=== PATIENT | female | born 1960 ===

== ENCOUNTER 2016-08-06 13:45 | Observation (INO) | payer MEDICARE, MEDICAID ==
[2016-08-06 13:45] VITALS: BMI 47.1
[2016-08-06 14:27] LABS: BASO % 0.1 % (0.0-2.0); EOS # 0.1 K/uL (0.0-0.7); EOS % 0.5 % (0.0-4.0); HEMATOCRIT 35.1 % (34.0-47.0); LYMPH # 0.8 K/uL (1.0-4.3); LYMPH % 8.4 % (20.0-40.0); MEAN CELL VOLUME 91.9 fL (81.0-99.0); MEAN CORPUSCULAR HGB CONC 33.7 g/dL (33.0-37.0); MEAN PLATELET VOLUME 9.1 fL (7.2-11.7); MONO # 0.5 K/uL (0.0-0.8); MONO % 5.5 % (0.0-10.0); PLATELET COUNT 169 K/uL (130-400); WHITE BLOOD COUNT 9.5 K/uL (4.8-10.8)
--- NOTE | 2016-08-06 14:27 | C.PDOC ---
History Of Present Illness The patient is a 56 yr old female with PMHx of anxiety, diabetes, obesity, HTN, CHF, End Stage Renal and Raynaud's disease, presents to the ER for evaluation of anxiety, chest pain and feeling SOB for the past few days. Patient states she went to dialysis yesterday and afterwards felt SOB. The chest pain is midline and has been off and on for 2 days. Patient denies fever, chills, nausea, vomiting, abdominal pain, headache, weakness or numbness. Time Seen by Provider: 08/06/16 13:55 Chief Complaint (Nursing): Chest Pain History Per: Patient History/Exam Limitations: no limitations Onset/Duration Of Symptoms: Days (Few) Current Symptoms Are (Timing): Still Present Past Medical History Reviewed: Historical Data, Nursing Documentation, Vital Signs Vital Signs: Last Vital Signs Temp 97.5 F L 08/07/16 16:00 Pulse 73 08/07/16 16:00 Resp 20 08/07/16 16:00 BP 158/75 H 08/07/16 18:12 Pulse Ox 92 L 08/07/16 16:00 - Medical History PMH: Anxiety, Arthritis, Asthma, Atrial Fibrillation, Back Problems (chronic back pain), CAD (CABG), CHF, COPD, Depression, Diabetes, Deep Vein Thrombosis, HTN, Hypercholesterolemia, Kidney Stones, End Stage Renal Disease, Chronic Kidney Disease, Rheumatoid Arthritis, Schizophrenia Other PMH: Obesity Surgical History: CABG (X4), Cholecystectomy, Coronary Stent - [facility] Procedures D & C NEC (06/07/13) DILATION OF LEFT URETER WITH INTRALUMINAL DEVICE, ENDO (05/12/15) EXCISION OF ASCENDING COLON, ENDO, DIAGN (04/23/16) HEMODIALYSIS (10/10/14) INSPECTION OF LOWER INTESTINAL TRACT, ENDO (04/23/16) LAPAROSCOP REMOVE OVARIES/TUBES (06/26/13) LAPAROSCOPIC RADICAL ABDOMINAL HYSTERECTOMY (06/26/13) LAPAROSCOPIC ROBOTIC ASSISTED PROCEDURE (06/26/13) LYMPHATIC STRUCT BIOPSY (06/26/13) OTHER ENDOSCOPY OF SM INTEST (07/27/14) PACKED CELL TRANSFUSION (06/07/13) PERFORMANCE OF URINARY FILTRATION, MULTIPLE (12/24/15) TRANSFUSE NONAUT FROZEN PLASMA IN PERIPH VEIN, PERC (04/23/16) TRANSFUSE NONAUT WHOLE BLOOD IN PERIPH VEIN, PERC (04/23/16) VENOUS CATHETERIZATION NEC (06/07/13) Family History: States: Diabetes - Social History Hx Tobacco Use: Yes Hx Alcohol Use: No Hx Substance Use: No - Immunization History Hx Tetanus Toxoid Vaccination: No Hx Influenza Vaccination: No Hx Pneumococcal Vaccination: No Review Of Systems Except As Marked, All Systems Reviewed And Found Negative. Constitutional: Negative for: Fever, Chills Cardiovascular: Positive for: Chest Pain Respiratory: Positive for: Shortness of Breath Gastrointestinal: Negative for: Nausea, Vomiting, Abdominal Pain Neurological: Negative for: Weakness, Numbness, Headache Physical Exam - Physical Exam Appears: Well, Non-toxic, No Acute Distress, Other (Obese ) Skin: Warm, Dry, No Rash Head: Atraumatic, Normacephalic Eye(s): bilateral: Normal Inspection, EOMI Ear(s): Bilateral: Normal Nose: Normal Oral Mucosa: Moist Tongue: Normal Appearing Lips: Normal Appearing Throat: Normal Neck: Normal Lymphatic: Deferred Chest: Symmetrical, No Tenderness Cardiovascular: Rhythm Regular, No Murmur Respiratory: Decreased Breath Sounds (Lower bases b/l), No Rales, No Rhonchi, No Stridor, No Wheezing Gastrointestinal/Abdominal: Normal Exam, Soft, No Tenderness, No Guarding, No Rebound Rectal: Deferred Extremity: Normal ROM, No Swelling Extremity: Bilateral: Atraumatic, Normal ROM Neurological/Psych: Oriented x3, Normal Speech, Normal Motor ED Course And Treatment - Laboratory Results Result Diagrams: 08/06/16 14:21 08/06/16 14:21 O2 Sat by Pulse Oximetry: 96 - Other Rad CXR X-Ray: Viewed By Me, Read By Radiologist Interpretation: HISTORY: c/o SOB. COMPARISON: Chest x-ray for 06/22/15. TECHNIQUE: Chest, one view. FINDINGS: Examination limited by habitus. LUNGS : Mild pulmonary venous congestion. No focal consolidation. Please note that chest x-ray has limited sensitivity for the detection of pulmonary masses. PLEURA: No significant pleural effusion identified. No definite pneumothorax . CARDIOVASCULAR: Median sternotomy wires. Cardiomegaly. OSSEOUS STRUCTURES: Degenerative changes. VISUALIZED UPPER ABDOMEN: Unremarkable. OTHER FINDINGS: None. IMPRESSION: Cardiomegaly. Mild pulmonary venous congestion. Medical Decision Making Medical Decision Making: INITIAL IMPRESSION: Chest pain in patient with significant PMH/cardiac risk factors INITIAL PLAN: * CXR * EKG * Troponin * CBC * Urinalysis Progress note: I discussed case w/ pt's PMD. Recommends hospitalization for serial cardiac enzymes and monitoring because of patient's significant PMH and cardiac risk factors. Disposition - Disposition Disposition: HOSPITALIZED Disposition Time: 16:06 Condition: FAIR - Clinical Impression Clinical Impression: Chest pain - Scribe Statement The provider has reviewed the documentation as recorded by the Scribe Mariangel Landis Provider Attestation: All medical record entries made by the Scribe were at my direction and personally dictated by me. I have reviewed the chart and agree that the record accurately reflects my personal performance of the history, physical exam, medical decision making, and the department course for this patient. I have also personally directed, reviewed, and agree with the discharge instructions and disposition. Decision To Admit - Pt Status Changed To: Hospital Disposition Of: Observation - . Bed Request Type: Telemetry Admitting Physician: Bennett Talamantes Patient Diagnosis: Chest pain
[2016-08-06 14:37] LABS: INR 1.4
[2016-08-06 14:44] LABS: POTASSIUM 4.4 mmol/L (3.6-5.2)
[2016-08-06 14:46] LABS: ALB/GLOB RATIO 1.4 (1.0-2.1); BILIRUBIN,TOTAL 0.7 mg/dL (0.2-1.3); TOTAL PROTEIN 7.6 g/dL (6.3-8.3)
[2016-08-06 14:47] LABS: CALCIUM 9.5 mg/dl (8.6-10.4)
[2016-08-06 14:53] LABS: EOSINOPHIL 1 % (0-4); NEUTROPHIL 86 % (50-75); TOTAL CELLS COUNTED 100
[2016-08-06 14:59] LABS: TROPONIN I 0.045 ng/mL (0.00-0.120)
--- NOTE | 2016-08-06 15:53 | RAD ---
HISTORY: c/o SOB COMPARISON: Chest x-ray for 06/22/15 TECHNIQUE: Chest, one view. FINDINGS: Examination limited by habitus. LUNGS: Mild pulmonary venous congestion. No focal consolidation. Please note that chest x-ray has limited sensitivity for the detection of pulmonary masses. PLEURA: No significant pleural effusion identified. No definite pneumothorax . CARDIOVASCULAR: Median sternotomy wires. Cardiomegaly. OSSEOUS STRUCTURES: Degenerative changes. VISUALIZED UPPER ABDOMEN: Unremarkable. OTHER FINDINGS: None. IMPRESSION: Cardiomegaly. Mild pulmonary venous congestion.
[2016-08-06 16:34] VITALS: RESP 20
[2016-08-06] MEDS ORDERED: (Novolin 70/30) NPH/Regular 70/30 Units/ml 10 ml vial SC ONE (18:56)
[2016-08-06] MEDS: (Novolin 70/30) NPH/Regular 70/30 Units/ml 10 ml vial SC SCH (18:59)
--- NOTE | 2016-08-06 19:06 | CP.PCM.CON ---
History of Present Illness - History of Present Illness History of Present Illness: pt seen and examined, full consult is dictated#[id number] 1, chest pain and palpitattion, r/o acs 2. esrd, continue hd 3 x a week 3. mild chf 4. htn 5. axiety/ bipolar for hd in am, restrict fluids 1 lit/day low ns, deborah + diet continue renvela, nephrovite rx 1 tab daily, consider psych evaluation Past Patient History - Infectious Disease Hx of Infectious Diseases: None - Past Medical History & Family History Past Medical History?: Yes - Past Social History Smoking Status: Former Smoker - CARDIAC Hx Atrial Fibrillation: Yes Hx Congestive Heart Failure: Yes Hx Hypercholesterolemia: Yes Hx Hypertension: Yes - PULMONARY Hx Asthma: Yes Hx Chronic Obstructive Pulmonary Disease (COPD): Yes - HEENT Hx HEENT Problems: Yes Hx Blind: Yes (Pt claims her blindness started like end part of last year,only sees shadow) Hx Cataracts: Yes (had cataract surgery x 2) - RENAL Hx Chronic Kidney Disease: Yes Hx Kidney Stones: Yes - ENDOCRINE/METABOLIC Hx Endocrine Disorders: Yes Hx Diabetes Mellitus Type 1: Yes Hx Diabetes Mellitus Type 2: Yes - HEMATOLOGICAL/ONCOLOGICAL Hx Blood Disorders: Yes Hx Blood Transfusions: Yes Hx Blood Transfusion Reaction: No Hx Cancer: Yes (Uterine) - INTEGUMENTARY Hx Dermatological Problems: Yes Other/Comment: Pt has abdominal wound because of scratching. - MUSCULOSKELETAL/RHEUMATOLOGICAL Hx Arthritis: Yes Hx Rheumatoid Arthritis: Yes - GASTROINTESTINAL Hx Gastrointestinal Disorders: No - GENITOURINARY/GYNECOLOGICAL Hx Genitourinary Disorders: Yes Hx Uterine Cancer: Yes Other/Comment: Pt says she has endometrial cancer. - PSYCHIATRIC Hx Anxiety: Yes Hx Depression: Yes Hx Schizophrenia: Yes Hx Substance Use: No - SURGICAL HISTORY Hx Cholecystectomy: Yes Hx Coronary Artery Bypass Graft: Yes (X4) Hx Coronary Stent: Yes - ANESTHESIA Hx Anesthesia: Yes Hx Anesthesia Reactions: No Hx Malignant Hyperthermia: No Meds Allergies/Adverse Reactions: Allergies Allergy/AdvReac Type Severity Reaction Status Date / Time morphine Allergy RASH Verified 08/06/16 13:49 haloperidol [From Haldol] AdvReac Unknown Verified 08/06/16 13:49 haloperidol lactate AdvReac Unknown Verified 08/06/16 13:49 [From Haldol] - Medications Medications: Current Medications Acetaminophen (Tylenol 325mg Tab) 650 mg PO Q4H PRN PRN Reason: Temperature Alprazolam (Xanax) 0.5 mg PO ONCE ONE Stop: 08/06/16 22:01 Alprazolam (Xanax) 0.25 mg PO TID PRN PRN Reason: Anxiety Stop: 08/13/16 17:58 Last Admin: 08/06/16 18:48 Dose: 0.25 mg Aspirin (Ecotrin) 81 mg PO DAILY [facility] Carvedilol (Coreg) 25 mg PO Q12H [facility] Last Admin: 08/06/16 18:50 Dose: 25 mg Famotidine (Pepcid) 20 mg IVP DAILY [facility] Gabapentin (Neurontin) 100 mg PO TID [facility] Last Admin: 08/06/16 18:51 Dose: 100 mg Heparin Sodium (Porcine) (Heparin) 5,000 units SC Q12 [facility] Hydralazine HCl (Apresoline) 25 mg PO Q8 [facility] Last Admin: 08/06/16 18:52 Dose: 25 mg Insulin Aspart (Novolog) 0 unit SC ACHS [facility] PRN Reason: Protocol Insulin Human Isoph/Insulin Regular (Novolin 70/30 (70/30 Units/Ml) 10 Ml) 20 units SC BID [facility] Last Admin: 08/06/16 18:59 Dose: 20 units Rosuvastatin Calcium (Crestor) 5 mg PO HS [facility] Sevelamer Carbonate (Renvela) 800 mg PO TIDCC [facility] Last Admin: 08/06/16 18:52 Dose: 800 mg Results - Vital Signs Recent Vital Signs: Last Vital Signs Temp 98.3 F 08/06/16 18:16 Pulse 88 08/06/16 18:16 Resp 20 08/06/16 18:16 BP 163/86 H 08/06/16 18:50 Pulse Ox 95 08/06/16 18:16 - Labs Result Diagrams: 08/06/16 14:21 08/06/16 14:21
--- NOTE | 2016-08-06 19:34 | CON ---
DATE: 08/06/2016 REASON FOR CONSULTATION: CONSULTATION: Chest pain. HISTORY OF PRESENT ILLNESS: The patient is a 56-year-old morbidly obese female who has a hi story of end-stage renal disease on hemodialysis, history of coronary artery disease, bypass surgery, status post quadruple CABG a few years ago at a [facility]. The patient underwent cardiac cat heterization more than once and was considered not a suitable candidate for coronary intervention and medical therapy was continued. The patient also has a history of paroxysmal atrial fibrillation. S he has multiple admissions for exacerbation of congestive heart failure and for chest pain. The thom ent presents because of chest pain in the retrosternal area, nonradiating. The patient is unable to describe the character of her chest pain. SOCIAL HISTORY: Nonsmoker. HOME MEDICATIONS: Include insulin, Renvela, Risperdal, hydralazine 50 mg q. 8 hours, Pravachol 40 mg once a day, Pepcid 20 mg once a day, vitamin B complex 1 tablet daily, Neurontin 100 mg t.i.d., Core g 25 mg twice a day, aspirin 81 mg once a day, Xanax 0.25 mg t.i.d. REVIEW OF SYSTEMS: No fever or chills. No vomiting or diarrhea. No dizziness or syncope. PHYSICAL EXAMINATION: GENERAL: The patient is a middle-aged female who does not appear to be in any distress. VITAL SIGNS: Blood pressure 164/78, heart rate 85, temperature 97.3, respirations 20. HEENT: The patient has very poor visual acuity. NECK: No JVD. CHEST: Diminished breath sounds over the bases. CARDIOVASCULAR: S1, S2 regular. No gallop. No pericardial rub. ABDOMEN: Soft. EXTREMITIES: 1+ pitting edema. LABORATORY DATA: SMA-7: Sodium 135, potassium 4.4, chloride 89, CO2 26, glucose 182, BUN 52, creati nine 5.7. First troponin is negative. INR is 1.4, PTT 34. Hemoglobin and hematocrit 11.8 and 35.1, white count and platelet count are within normal limits. EKG revealed normal sinus rhythm, slightly prolonged QT interval. Chest x-ray revealed cardiomegaly with mild CHF. ASSESSMENT: 1. Chest pain, rule out myocardial infarction. 2. Congestive heart failure. Consider volume overload. The patient has multiple admissions in the past for acute volume overload. 3. Coronary artery disease status post coronary bypass surgery in the past. 4. Paroxysmal atrial fibrillation. 5. Diabetic retinopathy. The patient is legally blind. RECOMMENDATIONS: Admit the patient to telemetry. Resume hydralazine at 25 mg q. 8 hours, Coreg 25 m g twice a day, aspirin 81 mg once a day, Pravachol 40 mg once a day. Monitor EKG and serial cardiac enzymes. Nephrology evaluation for possible additional hemodialysis if indicated by a biology teacher. The chest x-ray reveals mild congestive heart failure. Demar Stahl MD cc: [id number] TT: 08/06/2016 19:34:07 Confirmation # [id number] Dictation # [id number] jn
[2016-08-06] MEDS: (Novolog) Insulin Aspart, Recombinant 100 u/ml 10 ml vial SC SCH (21:56)
--- NOTE | 2016-08-06 22:39 | CP.PCM.HP ---
History of Present Illness - History of Present Illness History of Present Illness: cheif complain: shortness of breath HPI: The patient is a 56 yr old morbidly obese female with PMHx of CAD ,status post CABG, anxiety, diabetes, HTN, CHF, End Stage Renal , on HD x 3 week and Raynaud's disease,complaint with diet, meds, follow up,able to ambulate with the help of family, at times she uses wheelchair presents to the ER for evaluation of anxiety, chest pain non radiating, substernal,and feeling SOB for the past few days. Patient states she went to dialysis yesterday and afterwards felt SOB. Patient denies fever, chills, nausea, vomiting, abdominal pain, headache, weakness or numbness. Present on Admission - Present on Admission Any Indicators Present on Admission: No Review of Systems - Review of Systems Systems not reviewed;Unavailable: Acuity of Condition - Constitutional Constitutional: Anorexia, Fatigue, Lethargy, Malaise - EENT Eyes: Blurred Vision Nose/Mouth/Throat: Nasal Congestion - Cardiovascular Cardiovascular: Chest Pain, Diaphoresis, Dyspnea, Pedal Edema. absent: As Per HPI, Acrocyanosis, Chest Pain at Rest, Chest Pain with Activity, Claudication, Dyspnea on Exertion, Edema, Irregular Heart Rhythm, Pain Radiating to Arm/Neck/ Jaw, Leg Edema, Leg Ulcers, Lightheadedness, Orthopnea, Palpitations, Paroxysmal Nocturnal Dyspnea, Radiating Pain, Rapid Heart Rate, Slow Heart Rate , Syncope, Other - Respiratory Respiratory: Dyspnea. absent: As Per HPI, Cough, Hemoptysis, Dyspnea on Exertion, Wheezing, Snoring, Stridor, Pain on Inspiration, Chest Congestion, Excessive Mucous Production, Change in Mucous Color, Pain with Coughing, Other - Gastrointestinal Gastrointestinal: absent: As Per HPI, Abdominal Pain, Belching, Bloating, Change in Bowel Habits, Change in Stool Character, Coffee Ground Emesis, Constipation, Cramping, Diarrhea, Dyspepsia, Dysphagia, Early Satiety, Excessive Flatus, Fecal Incontinence, Heartburn, Hematemesis, Hematochezia, Loose Stools, Melena, Nausea, Odynophagia, Temesmus, Vomiting, Other - Genitourinary Genitourinary: absent: As Per HPI, Change in Urinary Stream, Difficulty Urinating, Dysuria, Flank Pain, Hematuria, Pyuria, Nocturia, Urinary Incontinence, Urinary Frequency, Urinary Hesitance, Urinary Urgency, Voiding Freq/Small Amts, Freq UTI, Hx Renal/Bladder Calculi, Hx /Renal Surgery, Bladder Distension, Other - Musculoskeletal Musculoskeletal: Abnormal Gait, Limited Range of Motion, Muscle Weakness, Myalgias - Neurological Neurological: Abnormal Gait, Numbness, Sensory Deficit, Weakness, Other Visual Disturbances - Psychiatric Psychiatric: Anxiety. absent: As Per HPI, Abnormal Sleep Pattern, Anhedonia, Auditory Hallucinations, Behavioral Changes, Change in Appetite, Change in Libido, Confusion, Depression, Difficulty Concentrating, Hallucinations, Homicidal Ideation, Hopelessness, Irritability, Memory Loss, Mood Swings, Panic Attacks, Paranoia, Suicidal Ideation, Visual Hallucinations, Tactile Hallucinations, Other - Endocrine Endocrine: absent: As Per HPI, Change in Body Appearance, Change in Libido, Cold Intolorance, Deepening of Voice, Excessive Sweating, Fatigue, Flushing, Heat Intolorance, Increase in Ring/Shoe/Hat Size, Palpitations, Polydipsia, Polyphagia, Polyuria, Other - Hematologic/Lymphatic Hematologic: absent: As Per HPI, Easy Bleeding, Easy Bruising, Lymphadenopathy, Other Past Patient History - Infectious Disease Hx of Infectious Diseases: None - Past Medical History & Family History Past Medical History?: Yes - Past Social History Smoking Status: Current Some Days Smoker - CARDIAC Hx Cardiac Disorders: Yes Hx Atrial Fibrillation: Yes Hx Congestive Heart Failure: Yes Hx Hypercholesterolemia: Yes Hx Hypertension: Yes - PULMONARY Hx Respiratory Disorders: Yes Hx Asthma: Yes Hx Chronic Obstructive Pulmonary Disease (COPD): Yes - NEUROLOGICAL Hx Neurological Disorder: No - HEENT Hx HEENT Problems: Yes Hx Blind: Yes (Pt claims her blindness started like end part of last year,only sees shadow) Hx Cataracts: Yes (had cataract surgery x 2) - RENAL Hx Chronic Kidney Disease: Yes Date of Last Dialysis Treatment: 08/05/16 Hx Kidney Stones: Yes - ENDOCRINE/METABOLIC Hx Endocrine Disorders: Yes Hx Diabetes Mellitus Type 1: Yes Hx Diabetes Mellitus Type 2: Yes - HEMATOLOGICAL/ONCOLOGICAL Hx Blood Disorders: Yes Hx Blood Transfusions: Yes Hx Blood Transfusion Reaction: No Hx Cancer: Yes (Uterine) - INTEGUMENTARY Hx Dermatological Problems: Yes Other/Comment: Pt has abdominal wound because of scratching. - MUSCULOSKELETAL/RHEUMATOLOGICAL Hx Arthritis: Yes Hx Falls: No Hx Rheumatoid Arthritis: Yes - GASTROINTESTINAL Hx Gastrointestinal Disorders: No - GENITOURINARY/GYNECOLOGICAL Hx Genitourinary Disorders: Yes Hx Uterine Cancer: Yes Other/Comment: Pt says she has endometrial cancer. - PSYCHIATRIC Hx Anxiety: Yes Hx Depression: Yes Hx Schizophrenia: Yes Hx Substance Use: No - SURGICAL HISTORY Hx Surgeries: Yes Hx Cholecystectomy: Yes Hx Coronary Artery Bypass Graft: Yes (X4) Hx Coronary Stent: Yes - ANESTHESIA Hx Anesthesia: Yes Hx Anesthesia Reactions: No Hx Malignant Hyperthermia: No Meds Home Medications: Home Medication List Medication Instructions Recorded Confirmed Type ALPRAZolam [Xanax] 0.5 mg PO BID #60 tab 08/07/16 Rx Escitalopram Oxalate [Lexapro] 5 mg PO DAILY #30 tablet 08/07/16 Rx Warfarin [Coumadin] 5 mg PO 1800 #1 tab 08/07/16 Rx traZODone [Desyrel] 25 mg PO HS #30 tab 08/08/16 Rx Allergies/Adverse Reactions: Allergies Allergy/AdvReac Type Severity Reaction Status Date / Time morphine Allergy RASH Verified 09/18/16 13:57 haloperidol [From Haldol] AdvReac Unknown Verified 09/18/16 13:57 haloperidol lactate AdvReac Unknown Verified 09/18/16 13:57 [From Haldol] Physical Exam - Constitutional Appears: No Acute Distress, Chronically Ill - Head Exam Head Exam: ATRAUMATIC, NORMAL INSPECTION, NORMOCEPHALIC - Eye Exam Eye Exam: EOMI, Normal appearance, PERRL Pupil Exam: NORMAL ACCOMODATION, PERRL Additional comments: positive pallor, neg jaundice - ENT Exam ENT Exam: Mucous Membranes Moist, Normal Exam - Respiratory Exam Respiratory Exam: Decreased Breath Sounds, Rales, Rhonchi, NORMAL BREATHING PATTERN - Cardiovascular Exam Cardiovascular Exam: REGULAR RHYTHM, +S1, +S2, Systolic Murmur Additional comments: s3 positive 2/6 ESM - GI/Abdominal Exam GI & Abdominal Exam: Normal Bowel Sounds, Soft. absent: Tenderness - Extremities Exam Extremities exam: Positive for: pedal edema Additional comments: 2+ pitting edema - Neurological Exam Neurological exam: Alert, CN II-XII Intact, Normal Gait, Oriented x3, Reflexes Normal Additional comments: visiual aciuty is poor power is 4/5 in both LE absent ankle jerk b/l decreased propioception, vibration and touch b/l - Skin Skin Exam: Dry, Erythema Additional comments: chronic inflamamtory changes Results - Vital Signs Recent Vital Signs: Last Vital Signs Temp 98.1 F 08/06/16 20:00 Pulse 80 08/06/16 20:36 Resp 20 08/06/16 20:00 BP 159/73 H 08/06/16 20:00 Pulse Ox 95 08/06/16 18:16 - Labs Result Diagrams: 08/06/16 14:21 08/06/16 14:21 Labs: Laboratory Results - last 24 hr 08/06/16 21:26 POC Glucose (mg/dL) 157 H Assessment & Plan (1) Chest pain Assessment and Plan: rule out ND Status: Acute (2) End stage renal disease on dialysis Status: Chronic Priority: High (3) Diabetes mellitus Status: Chronic Priority: Low (4) Congestive heart failure (CHF) Status: Chronic - Assessment and Plan (Free Text) Plan: continue current medical managment admit seen and examined detailed orders written
[2016-08-07] MEDS: (Novolog) Insulin Aspart, Recombinant 100 u/ml 10 ml vial SC SCH ×3 (08:12→18:16)
--- NOTE | 2016-08-07 08:35 | CON ---
DATE: 08/06/2016 REQUESTED BY: Dr. Bennett Talamantes The patient is located in room 560, bed B. REASON FOR CONSULTATION: End-stage renal disease, chest pain and anxiety. HISTORY OF PRESENT ILLNESS: The patient is a 56-year-old, obese, female with a past medical history significant for longstanding hypertension, diabetes, coronary artery disease status post CABG, end-stage renal disease on hemodialysis 3 times a week, noncompliant with the fluids and diet and nephrolithiasis and status post removal of the hydronephrosis and status post removal of the stent from the left ureter in the past, anxiety, bipolar, who was admitted with chief complaints of chest tightness and palpitations and shortness of breath and very anxious. The patient always asking the dialysis nurses whether she will be all right or whether she is going to on multiple occasions. The patient was reassured to relax during dialysis. The patient was not in distress. Denies any fever, cough. Denies any nausea, vomiting, diarrhea. Denies any abdominal pain. PAST MEDICAL HISTORY: Significant for longstanding hypertension, diabetes, end- stage renal disease, coronary artery disease, anxiety, bipolar disorder. PAST SURGICAL HISTORY: Status post CABG, status post hysterectomy for endometrial cancer and left upper extremity AV fistula. ALLERGIES: ALLERGIC TO MORPHINE, HALOPERIDOL. SOCIAL HISTORY: Denies any smoking, alcohol or drugs. PERSONAL HISTORY: No children. She lives with sister. FAMILY HISTORY: Not significant. CURRENT MEDICATIONS: Include as follows: Hydralazine 25 mg p.o. q. 8 hours, Coreg 25 mg p.o. q. 12, Crestor 5 mg at bedtime, Ecotrin 81 mg daily, subcutaneous heparin 5000 q. 12 hours, insulin lispro 70/30, 20 units subQ b.i.d., insulin aspart for sliding scale, Pepcid 20 mg IV daily, Renvela 800 mg p.o. t.i.d., Tylenol, Xanax 0.25 mg p.o. t.i.d. p.r.n. for anxiety. REVIEW OF SYSTEMS: Significant for chest discomfort and palpitations and shortness of breath. All others reviewed and are negative. PHYSICAL EXAMINATION: VITAL SIGNS: Blood pressure 159/73, pulse 85, respiration 20, temperature 98.1. Height 5 feet 6 inches and weight is 285 pounds. GENERAL: The patient is a 56-year-old, middle-aged, obese, female, well built, well nourished, not in distress, anxious. HEENT: Pupils normal, reactive to light and accommodation. Conjunctivae pink. Sclerae anicteric. Tongue is moist. NECK: Trachea is midline. LUNGS: Symmetric on both sides. Bilateral breath sounds present. Clear on auscultation. CARDIOVASCULAR: [place] at the fifth intercostal space, midclavicular line. S1 and S2 audible. No murmur or gallop. The patient has a midsternal scar present from the CABG. ABDOMEN: Protuberant and the patient has a small superficial ulcer just below the umbilicus with her dressing soaked with blood. Soft, tympanic. No guarding , no rigidity. No hepatosplenomegaly. CENTRAL NERVOUS SYSTEM: The patient is alert, awake, oriented x 3, nonfocal on examination. Cranial nerves II-XII grossly intact. Sensory and motor system is within normal limits. EXTREMITIES: No cyanosis, no clubbing. The patient has 1+ edema in both lower extremities. LABORATORY DATA: Include as follows: As of 08/06/2016, WBC 9.4, hemoglobin 11.8 , hematocrit 35.1, platelets 169, neutrophils 86, lymphs 4, monos 9. PT 15.8, PTT 34. potassium 4.4, chloride 18, CO2 26, BUN 52, creatinine 5.7, glucose 197, and calcium 9.5. Total bilirubin 0.7, AST 21, ALT 25, alkaline phosphatase 167. CK-MB 2.17. Troponin 0.045, 0.038. Total protein 7.6, albumin is 4.5. Chest x-ray as of 08/06/2016: Cardiomegaly, mild pulmonary venous congestion, medial sternotomy wires and cardiomegaly. SUMMARY: The patient is a 56-year-old, obese, female with hypertension , diabetes, coronary artery disease, end-stage renal disease, bipolar, endometrial cancer status post hysterectomy and bilateral salpingo-oophorectomy , paroxysmal atrial fibrillation, who was admitted with chest discomfort, palpitations, shortness of breath and anxious. 1. End-stage renal disease. Continue hemodialysis 3 times a week, Wednesday, Wednesday, Wednesday. 2. Hypertension. Blood pressure is stable. Continue her current medications, hydralazine, Coreg. 3. Anxiety with bipolar. Continue Xanax and follow up with psychiatry for further evaluation. 4. Chest discomfort, rule out acute coronary syndrome. Cardiac enzymes x 2 is negative so far. We will schedule for hemodialysis in a.m. and we will continue Renvela 800 mg p.o. 3 tablets t.i.d. and Actigall during dialysis. Thank you for allowing me to participate in your patient's care. Sunil Ordoñez MD cc: [id number] TT: 08/07/2016 08:34:52 Confirmation # [id number] Dictation # [id number] en MTDD
[2016-08-07] MEDS ORDERED: Paricalcitol 2 mcg/ml Inj IV SCH (09:00)
[2016-08-07] MEDS: (Novolin 70/30) NPH/Regular 70/30 Units/ml 10 ml vial SC SCH ×2 (10:02→18:16)
--- NOTE | 2016-08-07 14:03 | PN ---
DATE: 08/07/2016 The patient is currently undergoing hemodialysis. She denies any chest pain or shortness of breath. PHYSICAL EXAMINATION: VITAL SIGNS: Blood pressure 156/66, heart rate 77, temperature 97.3, respirations 18. HEENT: Normocephalic. NECK: No JVD. CHEST: Minimal rhonchi. HEART: S1, S2 regular. No gallop or rub. ABDOMEN: Soft. EXTREMITIES: No edema. LABORATORIES: Three sets of troponins are negative. Today's blood sugar 132. ASSESSMENT: 1. Chest pain, myocardial infarction is ruled out. 2. Congestive heart failure. 3. Paroxysmal atrial fibrillation. 4. Rule out deep venous thrombosis and/or pulmonary embolism. RECOMMENDATIONS: Continue hydralazine 50 mg q. 8 hours, Coreg 25 mg twice a day, Crestor 5 mg once a day, subcutaneous heparin 5000 units q. 8 hours, Xanax 0.25 mg t.i.d. Obtain serum D-dimer. Case w as discussed with the INSTALL AND REPAIR TECHNICIAN. The patient is not a suitable candidate for invasive cardiac workup in vi ew of previous 2 cardiac catheterizations that did not justify or indicate the need for coronary inte rvention at that time. Demar Stahl MD cc: [id number] TT: 08/07/2016 14:02:35 Confirmation # [id number] Dictation # [id number] en
--- NOTE | 2016-08-07 17:46 | CP.PCM.PN ---
Subjective - Date & Time of Evaluation Date of Evaluation: 08/07/16 Time of Evaluation: 12:30 - Subjective Subjective: Pt seen and examined today , states chest pain resolved , denies any sob, palpitations , N/V , states anxious troponin x 3 - negative vss- stable seen by Dr. Nevarez for anxiety Objective - Vital Signs/Intake and Output Vital Signs (last 24 hours): Temp Pulse Resp BP Pulse Ox 97.3 F L 69 20 126/98 H 98 08/07/16 11:00 08/07/16 15:00 08/07/16 11:00 08/07/16 15:00 08/07/16 15:00 Intake and Output: 08/07/16 08/07/16 06:59 18:59 Intake Total 360 Balance 360 - Medications Medications: Current Medications Acetaminophen (Tylenol 325mg Tab) 650 mg PO Q4H PRN PRN Reason: Temperature Alprazolam (Xanax) 0.25 mg PO TID PRN PRN Reason: Anxiety Stop: 08/13/16 17:58 Last Admin: 08/06/16 18:48 Dose: 0.25 mg Aspirin (Ecotrin) 81 mg PO DAILY [facility] Last Admin: 08/07/16 10:02 Dose: 81 mg Carvedilol (Coreg) 25 mg PO Q12H [facility] Last Admin: 08/07/16 06:07 Dose: 25 mg Famotidine (Pepcid) 20 mg IVP DAILY [facility] Last Admin: 08/07/16 10:03 Dose: 20 mg Gabapentin (Neurontin) 100 mg PO TID [facility] Last Admin: 08/07/16 14:00 Dose: Not Given Heparin Sodium (Porcine) (Heparin) 5,000 units SC Q8 [facility] Last Admin: 08/07/16 14:00 Dose: Not Given Hydralazine HCl (Apresoline) 50 mg PO Q8 [facility] Last Admin: 08/07/16 14:00 Dose: Not Given Insulin Aspart (Novolog) 0 unit SC ACHS [facility] PRN Reason: Protocol Last Admin: 08/07/16 11:50 Dose: Not Given Insulin Human Isoph/Insulin Regular (Novolin 70/30 (70/30 Units/Ml) 10 Ml) 20 units SC BID [facility] Last Admin: 08/07/16 10:02 Dose: 20 units Paricalcitol (Zemplar) 2 mcg IV MWF [facility] Last Admin: 08/07/16 14:00 Dose: 2 mcg Rosuvastatin Calcium (Crestor) 5 mg PO HS [facility] Last Admin: 08/06/16 21:55 Dose: 5 mg Sevelamer Carbonate (Renvela) 2,400 mg PO TIDCC [facility] Last Admin: 08/07/16 11:50 Dose: Not Given Warfarin Sodium (Coumadin) 10 mg PO STAT [facility] Stop: 08/07/16 17:45 - Labs Labs: PT 15.8 SECONDS (9.7-12.2) H 08/06/16 14:21 INR 1.4 08/06/16 14:21 APTT 34 SECONDS (21-34) 08/06/16 14:21 Assessment and Plan - Assessment and Plan (Free Text) Assessment: A/P 56 yr old female with Hx of HTN, ESRD, CAD, ANXIETY admitted for chest pain troponin x 3 - negative Dr. Nevarez consulted for anxiety , recommends to start low dose of leaxapro for anxiety and cleared for discharge home from psychiatry stand point Dr. Stahl seen pt today , cleared for discharge home today from cardiology standpoint if D- dimer - negative D/W Dr. Talamantes, stable for discharge home today and f/u with his office in 3-5 days and continue HD as scheduled SW will arrange transportation and contact HD center for continue HD as scheduled MWF Discharge plan discussed with Patient , who understands and agrees with plan. Pt instructed to returns to ED if symptoms returns
--- NOTE | 2016-08-07 18:06 | PCM.HF ---
Heart Failure Core Measure - Heart Failure Ejection Fraction: 40 % or Greater JO-ANN Inhibitor Prescribed: No Contraindication/Reason for not providing: ESRD Beta-Shila Prescribed: Carvedilol Angiotensin II Receptor Shila Prescribed: No Contraindication/Reason for not providing: esrd AnticoagulationTherapy for Atrial Fibrillation/Atrialflutter: Yes Aldosterone Antagonist Prescribed: No Contraindication/Reason for not providing: ef>45/risk for hyperkalemia Hydralazine Nitrate Prescribed: Yes Implantable Cardioverter Defibrillator Therapy: No Contraindication/Reason for not providing: ef>45 Cardiac Resynchronization Therapy Prescribed: No Contraindication/Reason for not providing: ef>45 - Follow up Will be discharged to: Home Follow Up Date (must be within 7 days from discharge): 08/10/16 Follow Up Time: 09:00
[2016-08-07 18:17] VITALS: BP 158/75
--- NOTE | 2016-08-07 18:30 | CP.PCM.PN ---
Subjective - Date & Time of Evaluation Date of Evaluation: 08/07/16 Time of Evaluation: 18:30 - Subjective Subjective: pt seen and examined, follow up consult is dictated#[id number] s/p hd today, uf about 2.3 lit stable from renal stand point Objective - Vital Signs/Intake and Output Vital Signs (last 24 hours): Temp Pulse Resp BP Pulse Ox 97.3 F L 69 20 158/75 H 98 08/07/16 11:00 08/07/16 15:00 08/07/16 11:00 08/07/16 18:12 08/07/16 15:00 Intake and Output: 08/07/16 08/07/16 06:59 18:59 Intake Total 360 Balance 360 - Medications Medications: Current Medications Acetaminophen (Tylenol 325mg Tab) 650 mg PO Q4H PRN PRN Reason: Temperature Alprazolam (Xanax) 0.25 mg PO TID PRN PRN Reason: Anxiety Stop: 08/13/16 17:58 Last Admin: 08/06/16 18:48 Dose: 0.25 mg Aspirin (Ecotrin) [address] [facility] Last Admin: 08/07/16 10:02 Dose: 81 mg Carvedilol (Coreg) [address] [facility] Last Admin: 08/07/16 18:12 Dose: 25 mg Famotidine (Pepcid) [address] [facility] Last Admin: 08/07/16 10:03 Dose: 20 mg Gabapentin (Neurontin) [address] [facility] Last Admin: 08/07/16 18:15 Dose: 100 mg Heparin Sodium (Porcine) (Heparin) 5,[address] [facility] Last Admin: 08/07/16 14:00 Dose: Not Given Hydralazine HCl (Apresoline) [address] [facility] Last Admin: 08/07/16 14:00 Dose: Not Given Insulin Aspart (Novolog) [address] [facility] PRN Reason: Protocol Last Admin: 08/07/16 18:16 Dose: 2 unit Insulin Human Isoph/Insulin Regular (Novolin 70/30 (70/30 Units/Ml) 10 Ml) [address] [facility] Last Admin: 08/07/16 18:16 Dose: 20 units Paricalcitol (Zemplar) [address] [facility] Last Admin: 08/07/16 14:00 Dose: 2 mcg Rosuvastatin Calcium (Crestor) [address] [facility] Last Admin: 08/06/16 21:55 Dose: 5 mg Sevelamer Carbonate (Renvela) 2,[address] [facility] Last Admin: 08/07/16 18:16 Dose: 2,400 mg - Labs Labs: PT 15.8 SECONDS (9.7-12.2) H 08/06/16 14:21 INR 1.4 08/06/16 14:21 APTT 34 SECONDS (21-34) 08/06/16 14:21
[2016-08-07 18:32] VITALS: PULSE 73; TEMP 97.5
--- NOTE | 2016-08-07 19:21 | CP.PCM.PN ---
Subjective - Date & Time of Evaluation Date of Evaluation: 08/07/16 Time of Evaluation: 10:30 - Subjective Subjective: Pt seen and examined today , states chest pain resolved , denies any sob, palpitations , N/V , states anxious troponin x 3 - negative vss- stable Objective - Vital Signs/Intake and Output Vital Signs (last 24 hours): Temp Pulse Resp BP Pulse Ox 97.5 F L 73 20 158/75 H 92 L 08/07/16 16:00 08/07/16 16:00 08/07/16 16:00 08/07/16 18:12 08/07/16 16:00 Intake and Output: 08/07/16 08/08/16 18:59 06:59 Intake Total 360 Balance 360 - Medications Medications: Current Medications Acetaminophen (Tylenol 325mg Tab) 650 mg PO Q4H PRN PRN Reason: Temperature Alprazolam (Xanax) 0.25 mg PO TID PRN PRN Reason: Anxiety Stop: 08/13/16 17:58 Last Admin: 08/06/16 18:48 Dose: 0.25 mg Aspirin (Ecotrin) 81 mg PO DAILY [facility] Last Admin: 08/07/16 10:02 Dose: 81 mg Carvedilol (Coreg) 25 mg PO Q12H [facility] Last Admin: 08/07/16 18:12 Dose: 25 mg Famotidine (Pepcid) 20 mg IVP DAILY [facility] Last Admin: 08/07/16 10:03 Dose: 20 mg Gabapentin (Neurontin) 100 mg PO TID [facility] Last Admin: 08/07/16 18:15 Dose: 100 mg Heparin Sodium (Porcine) (Heparin) 5,000 units SC Q8 [facility] Last Admin: 08/07/16 14:00 Dose: Not Given Hydralazine HCl (Apresoline) 50 mg PO Q8 [facility] Last Admin: 08/07/16 14:00 Dose: Not Given Insulin Aspart (Novolog) 0 unit SC ACHS [facility] PRN Reason: Protocol Last Admin: 08/07/16 18:16 Dose: 2 unit Insulin Human Isoph/Insulin Regular (Novolin 70/30 (70/30 Units/Ml) 10 Ml) 20 units SC BID [facility] Last Admin: 08/07/16 18:16 Dose: 20 units Paricalcitol (Zemplar) 2 mcg IV MWF [facility] Last Admin: 08/07/16 14:00 Dose: 2 mcg Rosuvastatin Calcium (Crestor) 5 mg PO HS [facility] Last Admin: 08/06/16 21:55 Dose: 5 mg Sevelamer Carbonate (Renvela) 2,400 mg PO TIDCC [facility] Last Admin: 08/07/16 18:16 Dose: 2,400 mg - Labs Labs: PT 15.8 SECONDS (9.7-12.2) H 08/06/16 14:21 INR 1.4 08/06/16 14:21 APTT 34 SECONDS (21-34) 08/06/16 14:21 - Constitutional Appears: No Acute Distress - Head Exam Head Exam: ATRAUMATIC, NORMAL INSPECTION, NORMOCEPHALIC - Eye Exam Eye Exam: EOMI, Normal appearance - ENT Exam ENT Exam: Mucous Membranes Moist, Normal Exam - Neck Exam Neck Exam: Full ROM, Normal Inspection. absent: Lymphadenopathy - Respiratory Exam Respiratory Exam: Clear to Ausculation Bilateral, NORMAL BREATHING PATTERN - Cardiovascular Exam Cardiovascular Exam: REGULAR RHYTHM, +S1, +S2. absent: Murmur Assessment and Plan (1) Chest pain Status: Acute (2) End stage renal disease on dialysis Status: Chronic (3) Diabetes mellitus Status: Chronic (4) Congestive heart failure (CHF) Status: Chronic
--- NOTE | 2016-08-08 07:26 | PN ---
DATE: 08/07/2016 The patient is located in room 560, bed B. REQUESTED BY: Dr. Bennett Talamantes. REASON FOR FOLLOWUP: End-stage renal disease for continuation of the hemodialysis. HISTORY OF PRESENT ILLNESS: The patient is a 56-year-old middle-aged obese female with a past medical history significant for longstanding hypertension, diabetes, hyperlipidemia, coronary artery disease, CHF, end-stage renal disease, anxiety, bipolar disorder, was admitted with chief complaints of feeling nervous, anxious and palpitation and chest discomfort. The patient was ruled out for acute coronary syndrome by cardiac enzymes x 3. The patient is feeling much better today, not in distress. The patient underwent hemodialysis today, had ultrafiltration about 3.2 L and postdialysis weight is 125.2. The patient is not in acute distress. PHYSICAL EXAMINATION: VITAL SIGNS: Blood pressure 148/82, pulse 80, respirations 18, temperature 97.2 , height is 5 feet 6 inches and weight is 125.2 kilos. GENERAL: The patient is a 56-year-old obese female, well built, well nourished, not in distress. HEENT: Pupils normal, reactive to light and accommodation. Conjunctivae pink. Sclerae anicteric. Tongue is moist. NECK: Trachea is midline. LUNGS: Symmetric on both sides. Bilateral breath sounds present. Clear on auscultation. CARDIOVASCULAR: [place] at the fifth intercostal space midclavicular line. S1 and S2 audible. No murmur or gallop. ABDOMEN: Normal in appearance, small healing superficial ulcer just below the umbilicus. Abdomen is soft, tympanic. No guarding, no rigidity. No hepatosplenomegaly. CENTRAL NERVOUS SYSTEM: The patient is alert, awake, oriented x 3, nonfocal neuro on examination. Cranial nerves II-XII grossly intact. Sensory and motor system is within normal limits. EXTREMITIES: No cyanosis, no clubbing, no edema. LABORATORY DATA: Include as follows. Troponin 0.045 and second one 0.038 and third one 0.036. No other new labs are available. Accu-Cheks 130-151 and 170. As of 08/06/2016, WBC 9.3, hemoglobin 11.8, hematocrit 35.1, platelet of 169. Sodium 135, potassium 4.4, chloride 89, CO2 26, BUN 52, creatinine 5.7, glucose 182, calcium 9.5. SUMMARY: The patient is a 56-year-old obese female with hypertension, diabetes , bipolar disorder, anxiety, coronary artery disease, status post coronary artery bypass graft and congestive heart failure. 1. End-stage renal disease. Continue hemodialysis 3 times a week, Wednesday, Wednesday and Wednesday. The patient tolerated hemodialysis without any complications and had ultrafiltration about 3.2 L. 2. Hypertension. Blood pressure is stable. Continue her current medications, hydralazine 50 mg q. 8 hours and Coreg 25 mg p.o. q. 12 hours. 3. Diabetes. 4. Bipolar and anxiety. Continue Xanax 0.25 mg p.o. t.i.d. Stable from the renal standpoint. We will follow with psych. Thank you for allowing me to participate in your patient's care. Sunil Ordoñez MD cc: [id number] TT: 08/08/2016 07:26:05 Confirmation # [id number] Dictation # [id number] tn MTDD
--- NOTE | 2016-08-08 07:55 | PCM.PSYCH ---
Initial Psychiatric Evaluation - Initial Psychiatric Evaluation Type of Admission: Voluntary Legal Status: Capacity Chief Complaint (in patient's own words): "Anxious" History of Present Illness and Precipitating Events: The pt is seen, case discussed with the MEDICAL BILLING CLERK and chart reviewed. Consult was requested for her anxiety. She is a 56 yo LF, , no child, lives with her sister, On disability. She reports panic attacks and excessive anxiety, She is also moderately depressed but not suicidal. No manic or psychotic sxs, except for some vague visual illusions and perhaps mild/vague and transient VH (side of her eye, shadows) She is stressed about her medical problems and fears she will . Has poor sleep. No drugs or alcohol. Past psych hx: Denies Family psych hx: Sister also suffers from depression Medical hx: DM, ESRN, CHF Past Psychiatric History - Past Psychiatric History Previous Treatment History: None Pertinent Medical Hx (Current Medical&Sleep Prob, Allergies): Allergies Allergy/AdvReac Type Severity Reaction Status Date / Time morphine Allergy RASH Verified 08/06/16 13:49 haloperidol [From Haldol] AdvReac Unknown Verified 08/06/16 13:49 haloperidol lactate AdvReac Unknown Verified 08/06/16 13:49 [From Haldol] Acetaminophen [Tylenol] 650 mg PO Q4H PRN 12/09/15 Insulin Human NPH/Reg [HumuLIN 70/30 (NPH/Reg)] 20 units SC BID 12/09/15 Sevelamer Carbonate [Renvela] 800 mg PO TID 12/09/15 Tamsulosin [Flomax] 0.4 mg PO DAILY 12/09/15 hydrALAZINE [Apresoline] 25 mg PO Q8H 12/09/15 Amino AC/Protein Hydr/Whey Pro [Prosource Plus Liquid Packet] 30 ml PO DAILY [facility] Calcium [Vitamin C] 500 mg PO DAILY 04/23/16 Aspirin [Ecotrin] 81 mg PO DAILY 04/23/16 Carvedilol [Coreg] 25 mg PO Q12H 04/23/16 Epoetin Aj [Procrit] 20,000 unit IJ QWK 04/23/16 Famotidine [Pepcid] 20 mg PO DAILY 04/23/16 Gabapentin [Neurontin] 100 mg PO TID 04/23/16 Paricalcitol [Zemplar] 0.4 mcg PO DAILY 04/23/16 Pravastatin Sodium [Pravachol] 40 mg PO DAILY 04/23/16 Vit B Complex & C No.13/FA/D3 [Nephrocaps Qt Tablet] 1 odt PO DAILY 04/23/16 Insulin Aspart, Recombinant [Novolog] 0 unit SC ACHS #0 ml 04/28/16 ALPRAZolam [Xanax] 0.5 mg PO BID #60 tab 08/07/16 Escitalopram Oxalate [Lexapro] 5 mg PO DAILY #30 tablet 08/07/16 Warfarin [Coumadin] 5 mg PO 1800 #1 tab 08/07/16 Review of Systems - Psychiatric Psychiatric: Anhedonia, Anxiety, Change in Appetite, Depression, Difficulty Concentrating, Hallucinations (vague). absent: Homicidal Ideation, Suicidal Ideation Mental Status Examination - Personal Presentation Personal Presentation: Looks older than stated age - Affect Affect: Constricted - Motor Activity Motor Activity: Calm - Reliability in Providing Information Reliability in Providing Information: Good - Speech Speech: Organized - Mood Mood: Depressed, Anxious - Formal Thought Process Formal Thought Process: No Impairment - Cognitive Functions Orientation: Person, Place, Situation, Time Sensorium: Alert Attention/Concentration: Attentive Estimate of Intelligence: Average Judgement: Intact, as evidence by: Insight regarding need for hospitalization Memory: Recent intact, as evidence by: Ability to recall events of the day, Remote intact, as evidenced by: Abilit to recall sig. life events - Risk Risk: Diminished functioning - Strength & Assets Inventory Strength & Assets Inventory: Cooperative DSM 5 DX - DSM 5 DSM 5 Diagnosis: Major depression, single, moderate KEE Panic d/o - Recommended/Plan of Treatment Treatment Recommendations and Plan of Treatment: Lexapro for all three conditions prn Trazodone for insomnia prn xanax or klonopin for severe anxiety Support and psychoed given Consider CRC Cleared for d/c
[2016-08-08] MEDS ORDERED: traZODone 25 mg Tab PO SCH (22:00)
--- NOTE | 2016-08-10 12:29 | CARD ---
APPROVED REPORT EKG Measurement Heart [id number] <Conclusion> Normal sinus rhythm Nonspecific ST and T wave abnormality Prolonged QT Abnormal ECG
[2016-08-10 14:13] VITALS: O2SAT 96
== END 2016-08-07 19:40 | disposition home or self-care (01) ==
LOC: C.ER 13:45 → C.9E 16:07 → C.5T 19:00
PROVIDERS: ADMIT Internal Medicine; ATTEND Internal Medicine
DX: R07.9 Chest pain, unspecified (principal); N18.6 End stage renal disease; Z99.2 Dependence on renal dialysis; E10.22 Type 1 diabetes mellitus with diabetic chronic kidney disease; I25.10 Atherosclerotic heart disease of native coronary artery without angina pectoris; I50.9 Heart failure, unspecified; I13.2 Hypertensive heart and chronic kidney disease with heart failure and with stage 5 chronic kidney disease, or end stage renal disease; F41.0 Panic disorder [episodic paroxysmal anxiety]; F31.9 Bipolar disorder, unspecified; E66.01 Morbid (severe) obesity due to excess calories; E78.5 Hyperlipidemia, unspecified; I48.0 Paroxysmal atrial fibrillation; Z91.19 Patient's noncompliance with other medical treatment and regimen; Z87.442 Personal history of urinary calculi; Z95.1 Presence of aortocoronary bypass graft; R00.2 Palpitations; E10.319 Type 1 diabetes mellitus with unspecified diabetic retinopathy without macular edema; H54.8 Legal blindness, as defined in USA; E78.00 Pure hypercholesterolemia, unspecified; J45.909 Unspecified asthma, uncomplicated; J44.9 Chronic obstructive pulmonary disease, unspecified; M06.9 Rheumatoid arthritis, unspecified; F20.9 Schizophrenia, unspecified; F32.1 Major depressive disorder, single episode, moderate; F41.1 Generalized anxiety disorder; I73.00 Raynaud's syndrome without gangrene; Z79.4 Long term (current) use of insulin; Z79.82 Long term (current) use of aspirin; Z79.899 Other long term (current) drug therapy; Z95.5 Presence of coronary angioplasty implant and graft; Z90.49 Acquired absence of other specified parts of digestive tract; Z90.710 Acquired absence of both cervix and uterus; Z87.891 Personal history of nicotine dependence; Z85.42 Personal history of malignant neoplasm of other parts of uterus
CPT/HCPCS: 36415; 71010; 80053; 82550; 82553; 82948; 84484; 85025; 85378; 85610; 85730; 86850; 86900; 90970; 93005; 96372; 99285; G0257; G0378; J1644; J2501

== ENCOUNTER 2016-09-07 17:51 | Inpatient (IN) | payer MEDICARE, MEDICAID ==
[2016-09-07 17:51] VITALS: BMI 47.1
--- NOTE | 2016-09-07 19:48 | C.PDOC ---
History Of Present Illness 56 y/o female presents to ED with complaints of chest pain and shortness of breath after completing dialysis yesterday. Patient also reports feeling slightly anxious. Patient is morbidly obese. Denies fever, chills, nausea, vomiting. Time Seen by Provider: 09/07/16 19:48 Chief Complaint (Nursing): Shortness Of Breath History Per: Patient History/Exam Limitations: no limitations Onset/Duration Of Symptoms: Days Current Symptoms Are (Timing): Still Present Initiating Event: Other Quality: "Pain" Exacerbating Factor(s): Exertion, Laying Flat Current Respiratory Medications: See Home Med List Severity: Moderate Pain Scale Rating Of: 4 Associated Symptoms: Chest Pain, Anxiety. denies: Fever, Chills, Bloody Cough, Productive Cough, Dizziness Reports Recently: Seen In ED, Treated By A Physician, Hospitalized Recent travel outside of the [place]: No Additional History Per: Patient Past Medical History Reviewed: Historical Data, Nursing Documentation, Vital Signs Vital Signs: Last Vital Signs Temp 98.1 F 09/07/16 21:17 Pulse 85 09/07/16 21:17 Resp 18 09/07/16 21:17 BP 147/72 09/07/16 21:17 Pulse Ox 96 09/07/16 21:17 - Medical History PMH: Anxiety, Arthritis, Asthma, Atrial Fibrillation, Back Problems (chronic back pain), CAD (CABG), CHF, COPD, Depression, Diabetes, Deep Vein Thrombosis, HTN, Hypercholesterolemia, Kidney Stones, End Stage Renal Disease, Chronic Kidney Disease, Rheumatoid Arthritis, Schizophrenia Surgical History: CABG (X4), Cholecystectomy, Coronary Stent - [facility] Procedures D & C NEC (06/07/13) DILATION OF LEFT URETER WITH INTRALUMINAL DEVICE, ENDO (05/12/15) EXCISION OF ASCENDING COLON, ENDO, DIAGN (04/23/16) HEMODIALYSIS (10/10/14) INSPECTION OF LOWER INTESTINAL TRACT, ENDO (04/23/16) LAPAROSCOP REMOVE OVARIES/TUBES (06/26/13) LAPAROSCOPIC RADICAL ABDOMINAL HYSTERECTOMY (06/26/13) LAPAROSCOPIC ROBOTIC ASSISTED PROCEDURE (06/26/13) LYMPHATIC STRUCT BIOPSY (06/26/13) OTHER ENDOSCOPY OF SM INTEST (07/27/14) PACKED CELL TRANSFUSION (06/07/13) PERFORMANCE OF URINARY FILTRATION, MULTIPLE (12/24/15) TRANSFUSE NONAUT FROZEN PLASMA IN PERIPH VEIN, PERC (04/23/16) TRANSFUSE NONAUT WHOLE BLOOD IN PERIPH VEIN, PERC (04/23/16) VENOUS CATHETERIZATION NEC (06/07/13) Family History: States: Unknown Family Hx, Diabetes - Social History Hx Tobacco Use: Yes Hx Alcohol Use: No Hx Substance Use: No - Immunization History Hx Tetanus Toxoid Vaccination: No Hx Influenza Vaccination: No Hx Pneumococcal Vaccination: No Review Of Systems Constitutional: Negative for: Fever, Chills ENT: Negative for: Throat Pain Cardiovascular: Positive for: Chest Pain Respiratory: Positive for: Shortness of Breath. Negative for: Wheezing Gastrointestinal: Negative for: Nausea, Vomiting, Abdominal Pain, Diarrhea Musculoskeletal: Negative for: Back Pain Skin: Negative for: Rash, Lesions Neurological: Negative for: Headache, Dizziness Psych: Positive for: Anxiety Physical Exam - Physical Exam Appears: Non-toxic, No Acute Distress Skin: Warm, Dry, No Diaphoretic Head: Normacephalic Eye(s): bilateral: Normal Inspection Oral Mucosa: Moist Neck: Supple Chest: Symmetrical Cardiovascular: Rhythm Regular, No Murmur Respiratory: Rales (few at bases), Rhonchi (bibasilar), No Wheezing Gastrointestinal/Abdominal: Soft, No Tenderness, No Guarding, No Rebound, Other (morbidly obese) Back: No CVA Tenderness Extremity: Normal ROM, Capillary Refill (< 2 sec. ) Extremity: Bilateral: Atraumatic Neurological/Psych: Oriented x3, Normal Speech, Normal Cognition Gait: With Assistance ED Course And Treatment - Laboratory Results Result Diagrams: 09/07/16 20:36 09/07/16 20:36 ECG: Interpreted By Me, Viewed By Me O2 Sat by Pulse Oximetry: 86 Pulse Ox Interpretation: Abnormal - Radiology CXR: Interpreted by Me, Viewed By Me CXR Interpretation: Yes: Cardiomegaly, Other (mild congestion, unchanged from ) Progress Note: EKG, CxR, bloodwork ordered. Disposition Discussed With : Bennett Talamantes Comment: accepted the pt on his service qand took over the care at 9:45 PM Doctor Will See Patient In The: Hospital Counseled Patient/Family Regarding: Studies Performed, Diagnosis - Disposition Disposition: HOSPITALIZED Disposition Time: 19:48 Condition: FAIR - POA Present On Arrival: Poor Glycemic Control - Clinical Impression Clinical Impression: End stage renal disease on dialysis, Anxiety, Congestive heart failure (CHF), Anemia - Scribe Statement The provider has reviewed the documentation as recorded by the Cedricibe Carlos Burns Provider Scribe Attestation: All medical record entries made by the Scribe were at my direction and personally dictated by me. I have reviewed the chart and agree that the record accurately reflects my personal performance of the history, physical exam, medical decision making, and the department course for this patient. I have also personally directed, reviewed, and agree with the discharge instructions and disposition. Decision To Admit - Pt Status Changed To: Hospital Disposition Of: Observation - . Bed Request Type: Telemetry Admitting Physician: Bennett Talamantes Patient Diagnosis: End stage renal disease on dialysis, Anxiety, Congestive heart failure (CHF), Anemia
[2016-09-07 20:41] LABS: BASO % 0.3 % (0.0-2.0); EOS # 0.1 K/uL (0.0-0.7); EOS % 1.2 % (0.0-4.0); HEMATOCRIT 28.3 % (34.0-47.0); LYMPH # 0.7 K/uL (1.0-4.3); LYMPH % 5.8 % (20.0-40.0); MEAN CELL VOLUME 92.2 fL (81.0-99.0); MEAN CORPUSCULAR HEMOGLOBIN 30.8 pg (27.0-31.0); MEAN CORPUSCULAR HGB CONC 33.4 g/dL (33.0-37.0); MEAN PLATELET VOLUME 8.8 fL (7.2-11.7); MONO # 0.4 K/uL (0.0-0.8); MONO % 3.3 % (0.0-10.0); PLATELET COUNT 220 K/uL (130-400); RED CELL DISTRIBUTION WIDTH 14.5 % (11.5-14.5); WHITE BLOOD COUNT 12.5 K/uL (4.8-10.8)
[2016-09-07 20:50] LABS: POTASSIUM 3.3 mmol/L (3.6-5.2)
[2016-09-07 20:53] LABS: ALB/GLOB RATIO 1.2 (1.0-2.1); BILIRUBIN,TOTAL 1.1 mg/dL (0.2-1.3); CALCIUM 9.6 mg/dl (8.6-10.4); TOTAL PROTEIN 8.1 g/dL (6.3-8.3)
[2016-09-07 20:55] LABS: INR 1.2
[2016-09-07 21:04] LABS: TROPONIN I 0.045 ng/mL (0.00-0.120)
[2016-09-07] MEDS ORDERED: HYDROmorphone 1 mg/ml ISec IVP STA (21:45)
[2016-09-07] MEDS ORDERED: HYDROmorphone 1 mg/ml ISec ONE (22:11)
[2016-09-07 23:13] LABS: EOSINOPHIL 2 % (0-4); NEUTROPHIL 84 % (50-75); TOTAL CELLS COUNTED 100
[2016-09-07 23:14] LABS: LARGE PLATELETS PRESENT; SMUDGE CELLS PRESENT
[2016-09-08] MEDS ORDERED: Nitroglycerin 2% Ointment Foilpak UD TOP STA (08:08)
[2016-09-08] MEDS: (Novolog) Insulin Aspart, Recombinant 100 u/ml 10 ml vial SC SCH ×3 (08:13→17:30)
[2016-09-08] MEDS ORDERED: Acetaminophen-Codeine 300/30 mg Tab PO PRN (08:44)
--- NOTE | 2016-09-08 08:45 | RAD ---
PROCEDURE: CHEST RADIOGRAPH, 1 VIEW HISTORY: SOB COMPARISON: 08/06/2016 FINDINGS: LUNGS: Moderate venous congestion. PLEURA: As above. CARDIOVASCULAR: Cardiomegaly. Status post median sternotomy OSSEOUS STRUCTURES: No significant abnormalities. VISUALIZED UPPER ABDOMEN: Normal. OTHER FINDINGS: None. IMPRESSION: Moderate venous congestion. Cardiomegaly.
[2016-09-08] MEDS: Vitamin B Complex/Vitamin C Tab PO SCH (09:17)
[2016-09-08] MEDS ORDERED: (Novolin 70/30) NPH/Regular 70/30 Units/ml 10 ml vial SC SCH (10:00)
[2016-09-08] MEDS ORDERED: Pneumococcal 23-Valent Vaccine IM ONE ×2 (10:00→11:30)
[2016-09-08] MEDS ORDERED: PARICALCITOL PO SCH (10:00)
--- NOTE | 2016-09-08 10:22 | CARD ---
APPROVED REPORT EKG Measurement Heart [id number] <Conclusion> Normal sinus rhythm Cannot rule out Anterior infarct, age undetermined Marked ST abnormality, possible lateral subendocardial injury Abnormal ECG
[2016-09-08] MEDS: guaiFENesin 100 mg/5 ml Syrup UD PO PRN ×2 (11:36→18:04)
--- NOTE | 2016-09-08 13:30 | CON ---
DATE: 09/08/2016 REASON FOR CONSULTATION: Exacerbation of congestive heart failure. The patient is a 56-year-old female who has a history of coronary artery disease status post quadruple bypass surgery a few years ago at a [facility]. The patient underwent cardiac edmond terization twice after that and was considered not a suitable candidate for coronary intervention. T he patient is on hemodialysis 3 times a week, Wednesday, Wednesday and Wednesday. The latest hemodialysis was yesterday in an outpatient dialysis facility and after the patient completed her dialysis, was tr ansferred to the Emergency Room because of shortness of breath. The patient did also experience ches t tightness. The patient is known to have paroxysmal atrial fibrillation in the past. The patient i s also legally blind because of diabetic retinopathy. SOCIAL HISTORY: The patient is a nonsmoker. MEDICATIONS: Hydralazine 25 mg q. 8 hours, Coreg 25 mg twice a day, aspirin 81 mg once a day, Lexapr o 5 mg once a day, Neurontin 100 mg t.i.d., Novolin 70/30 20 units twice a day, Renvela 800 mg t.i.d. , Robitussin 100 mg p.o. q. 4 hours p.r.n. for cough, Xanax 0.5 mg twice a day. REVIEW OF SYSTEMS: The patient denies any fever or chills. She is experiencing productive cough. N o palpitation, dizziness or syncope. PHYSICAL EXAMINATION: GENERAL: The patient is a middle-aged female who does not appear to be in acute distress. VITAL SIGNS: Blood pressure 163/79, heart rate 81, temperature 97.5, respirations 20. HEENT: Pale conjunctivae. NECK: No JVD. CHEST: Minimal basal rhonchi. HEART: S1, S2 regular. ABDOMEN: Soft. EXTREMITIES: Trace leg edema. LABORATORIES: INR and PTT are within normal limits. SMA-7: Sodium 133, potassium 3.3, chloride 89, CO2 28, glucose 192, BUN 31, creatinine 4.2. Three sets of troponins are negative. ProBNP 16,900. CBC: WBC 12.5, hemoglobin 9.5, hematocrit 28.3, platelet count 220,000. EKG revealed sinus rhythm at a rate of [address]-T wave changes. Chest x-ray re vealed cardiomegaly with mild CHF. The most recent echo was in January of last year, which reporte d mild concentric LVH with mildly dilated left ventricle, severe left ventricular diastolic dysfuncti on, ejection fraction was estimated at 60%. ASSESSMENT: 1. Status post volume overload. 2. Atypical chest pain, myocardial infarction is ruled out. 3. Hypertension. 4. Diabetes mellitus with diabetic retinopathy and legal blindness. 5. Coronary artery disease, status post coronary artery bypass surgery. 6. Paroxysmal atrial fibrillation. RECOMMENDATIONS: Increase hydralazine to 50 mg q. 8 hours. Continue Coreg at 25 mg twice a day. St art subcutaneous heparin 5000 units twice a day. The patient was instructed to comply with fluid and salt restriction. The patient had a large container of ice cubes on her bedside and was advised to limit as much as she can her intake of ice. No invasive cardiac workup is justified at this time. Demar Stahl MD cc: [id number] TT: 09/08/2016 13:30:29 Confirmation # [id number] Dictation # [id number]
[2016-09-08] MEDS: (Novolin 70/30) NPH/Regular 70/30 Units/ml 10 ml vial SC SCH (17:30)
--- NOTE | 2016-09-08 20:53 | CP.PCM.CON ---
History of Present Illness - History of Present Illness History of Present Illness: pt seen and examined, full consult is dictated #[id number] for hd in am Past Patient History - Infectious Disease Hx of Infectious Diseases: None - Past Medical History & Family History Past Medical History?: Yes - Past Social History Smoking Status: Former Smoker - CARDIAC Hx Atrial Fibrillation: Yes Hx Congestive Heart Failure: Yes Hx Hypercholesterolemia: Yes Hx Hypertension: Yes - PULMONARY Hx Asthma: Yes Hx Chronic Obstructive Pulmonary Disease (COPD): Yes - HEENT Hx HEENT Problems: Yes Hx Blind: Yes (Pt claims her blindness started like end part of last year,only sees shadow) Hx Cataracts: Yes (had cataract surgery x 2) - RENAL Hx Chronic Kidney Disease: Yes Hx Dialysis: Yes Date of Last Dialysis Treatment: 09/07/16 Hx Kidney Stones: Yes Hx Renal Failure: Yes - ENDOCRINE/METABOLIC Hx Endocrine Disorders: Yes Hx Diabetes Mellitus Type 1: Yes Hx Diabetes Mellitus Type 2: Yes - HEMATOLOGICAL/ONCOLOGICAL Hx Blood Disorders: Yes Hx Blood Transfusions: Yes Hx Blood Transfusion Reaction: No Hx Cancer: Yes (Uterine) - INTEGUMENTARY Hx Dermatological Problems: Yes Other/Comment: Pt has abdominal wound because of scratching. - MUSCULOSKELETAL/RHEUMATOLOGICAL Hx Arthritis: Yes Hx Falls: Yes Hx Rheumatoid Arthritis: Yes - GASTROINTESTINAL Hx Gastrointestinal Disorders: No - GENITOURINARY/GYNECOLOGICAL Hx Genitourinary Disorders: Yes Hx Uterine Cancer: Yes Other/Comment: Pt says she has endometrial cancer. - PSYCHIATRIC Hx Anxiety: Yes Hx Depression: Yes Hx Schizophrenia: Yes Hx Substance Use: Yes - SURGICAL HISTORY Hx Cholecystectomy: Yes Hx Coronary Artery Bypass Graft: Yes (X4) Hx Coronary Stent: Yes - ANESTHESIA Hx Anesthesia: Yes Hx Anesthesia Reactions: No Hx Malignant Hyperthermia: No Meds Allergies/Adverse Reactions: Allergies Allergy/AdvReac Type Severity Reaction Status Date / Time morphine Allergy RASH Verified 08/06/16 13:49 haloperidol [From Haldol] AdvReac Unknown Verified 08/06/16 13:49 haloperidol lactate AdvReac Unknown Verified 08/06/16 13:49 [From Haldol] - Medications Medications: Current Medications Acetaminophen (Tylenol 325mg Tab) 650 mg PO Q4H PRN PRN Reason: Temperature Last Admin: 09/08/16 19:32 Dose: 650 mg Alprazolam (Xanax) 0.5 mg PO BID [facility] Stop: 09/15/16 10:01 Last Admin: 09/08/16 17:31 Dose: 0.5 mg Aspirin (Ecotrin) 81 mg PO DAILY [facility] Last Admin: 09/08/16 09:18 Dose: 81 mg Carvedilol (Coreg) 25 mg PO Q12H [facility] Last Admin: 09/08/16 09:17 Dose: 25 mg Escitalopram Oxalate (Lexapro) 5 mg PO DAILY [facility] Last Admin: 09/08/16 11:24 Dose: 5 mg Gabapentin (Neurontin) 100 mg PO TID [facility] Last Admin: 09/08/16 17:31 Dose: 100 mg Guaifenesin (Robitussin) 100 mg PO Q4H PRN PRN Reason: Cough Last Admin: 09/08/16 18:04 Dose: 100 mg Heparin Sodium (Porcine) (Heparin) 5,000 units SC BID [facility] Last Admin: 09/08/16 17:33 Dose: 5,000 units Hydralazine HCl (Apresoline) 50 mg PO Q8H [facility] Last Admin: 09/08/16 13:52 Dose: Not Given Insulin Aspart (Novolog) 0 unit SC ACHS [facility] PRN Reason: Protocol Last Admin: 09/08/16 17:30 Dose: 1 unit Insulin Human Isoph/Insulin Regular (Novolin 70/30 (70/30 Units/Ml) 10 Ml) 20 units SC ACBD [facility] Last Admin: 09/08/16 17:30 Dose: 20 units Sevelamer Carbonate (Renvela) 800 mg PO TIDCC [facility] Last Admin: 09/08/16 17:31 Dose: 800 mg Tamsulosin HCl (Flomax) 0.4 mg PO DAILY [facility] Last Admin: 09/08/16 09:18 Dose: 0.4 mg Vitamin B Complex/Vitamin C (Berocca) 1 tab PO DAILY [facility] Last Admin: 09/08/16 09:17 Dose: 1 tab Results - Vital Signs Recent Vital Signs: Last Vital Signs Temp 98.0 F 09/08/16 15:35 Pulse 71 09/08/16 15:35 Resp 20 09/08/16 15:35 BP 136/75 09/08/16 15:35 Pulse Ox 94 L 09/08/16 15:35 - Labs Result Diagrams: 09/07/16 20:36 09/07/16 20:36 Labs: Laboratory Results - last 24 hr 09/08/16 17:01 POC Glucose (mg/dL) 188 H
--- NOTE | 2016-09-09 00:33 | CP.PCM.HP ---
History of Present Illness - History of Present Illness History of Present Illness: Cheif complain : chest pain HPI: 56 y/o female with h/o DM, HTN, Hyperlipidemia, CAD, s/p CABG non complaint with diet but complaint to medications and is on HD 3 x week presents to ED with complaints of pressure like chest pain and shortness of breath after completing dialysis yesterday. Patient also reports feeling slightly anxious. Patient is morbidly obese. Denies fever, chills, nausea, vomiting. Pt has poor visusal acuity and chronic hyperpigmentation all over body, no open ulcers Present on Admission - Present on Admission Any Indicators Present on Admission: No Review of Systems - Review of Systems Systems not reviewed;Unavailable: Acuity of Condition - Constitutional Constitutional: Fatigue, Lethargy, Malaise, Sleep Apnea - EENT Eyes: Other Visual Disturbances - Cardiovascular Cardiovascular: Chest Pain, Diaphoresis, Dyspnea, Dyspnea on Exertion - Respiratory Respiratory: absent: As Per HPI, Cough, Dyspnea, Hemoptysis, Dyspnea on Exertion , Wheezing, Snoring, Stridor, Pain on Inspiration, Chest Congestion, Excessive Mucous Production, Change in Mucous Color, Pain with Coughing, Other - Gastrointestinal Gastrointestinal: absent: As Per HPI, Abdominal Pain, Belching, Bloating, Change in Bowel Habits, Change in Stool Character, Coffee Ground Emesis, Constipation, Cramping, Diarrhea, Dyspepsia, Dysphagia, Early Satiety, Excessive Flatus, Fecal Incontinence, Heartburn, Hematemesis, Hematochezia, Loose Stools, Melena, Nausea, Odynophagia, Temesmus, Vomiting, Other - Genitourinary Genitourinary: absent: As Per HPI, Change in Urinary Stream, Difficulty Urinating, Dysuria, Flank Pain, Hematuria, Pyuria, Nocturia, Urinary Incontinence, Urinary Frequency, Urinary Hesitance, Urinary Urgency, Voiding Freq/Small Amts, Freq UTI, Hx Renal/Bladder Calculi, Hx /Renal Surgery, Bladder Distension, Other - Neurological Neurological: Dizziness. absent: As Per HPI, Abnormal Gait, Abnormal Hearing, Abnormal Movements, Abnormal Speech, Behavioral Changes, Burning Sensations, Confusion, Convulsions, Disequilibrium, Numbness, Focal Weakness, Frequent Falls , Headaches, Lack of Coordination, Loss of Vision, Memory Loss, Paresthesias, Radicular Pain, Restless Legs, Sensory Deficit, Syncope, Tingling, Tremor, Vertigo, Weakness, Other Visual Disturbances, Other - Psychiatric Psychiatric: absent: As Per HPI, Abnormal Sleep Pattern, Anhedonia, Anxiety, Auditory Hallucinations, Behavioral Changes, Change in Appetite, Change in Libido, Confusion, Depression, Difficulty Concentrating, Hallucinations, Homicidal Ideation, Hopelessness, Irritability, Memory Loss, Mood Swings, Panic Attacks, Paranoia, Suicidal Ideation, Visual Hallucinations, Tactile Hallucinations, Other Past Patient History - Infectious Disease Hx of Infectious Diseases: None - Past Medical History & Family History Past Medical History?: Yes - Past Social History Smoking Status: Former Smoker - CARDIAC Hx Atrial Fibrillation: Yes Hx Congestive Heart Failure: Yes Hx Hypercholesterolemia: Yes Hx Hypertension: Yes - PULMONARY Hx Asthma: Yes Hx Chronic Obstructive Pulmonary Disease (COPD): Yes - HEENT Hx HEENT Problems: Yes Hx Blind: Yes (Pt claims her blindness started like end part of last year,only sees shadow) Hx Cataracts: Yes (had cataract surgery x 2) - RENAL Hx Chronic Kidney Disease: Yes Hx Dialysis: Yes Date of Last Dialysis Treatment: 09/07/16 Hx Kidney Stones: Yes Hx Renal Failure: Yes - ENDOCRINE/METABOLIC Hx Endocrine Disorders: Yes Hx Diabetes Mellitus Type 1: Yes Hx Diabetes Mellitus Type 2: Yes - HEMATOLOGICAL/ONCOLOGICAL Hx Blood Disorders: Yes Hx Blood Transfusions: Yes Hx Blood Transfusion Reaction: No Hx Cancer: Yes (Uterine) - INTEGUMENTARY Hx Dermatological Problems: Yes Other/Comment: Pt has abdominal wound because of scratching. - MUSCULOSKELETAL/RHEUMATOLOGICAL Hx Arthritis: Yes Hx Falls: Yes Hx Rheumatoid Arthritis: Yes - GASTROINTESTINAL Hx Gastrointestinal Disorders: No - GENITOURINARY/GYNECOLOGICAL Hx Genitourinary Disorders: Yes Hx Uterine Cancer: Yes Other/Comment: Pt says she has endometrial cancer. - PSYCHIATRIC Hx Anxiety: Yes Hx Depression: Yes Hx Schizophrenia: Yes Hx Substance Use: Yes - SURGICAL HISTORY Hx Cholecystectomy: Yes Hx Coronary Artery Bypass Graft: Yes (X4) Hx Coronary Stent: Yes - ANESTHESIA Hx Anesthesia: Yes Hx Anesthesia Reactions: No Hx Malignant Hyperthermia: No Meds Home Medications: Home Medication List Medication Instructions Recorded Confirmed Type guaiFENesin/Dextromethorphan 10 ml PO Q6 PRN #240 ml 09/09/16 Rx [Robitussin DM] Allergies/Adverse Reactions: Allergies Allergy/AdvReac Type Severity Reaction Status Date / Time morphine Allergy RASH Verified 09/18/16 13:57 haloperidol [From Haldol] AdvReac Unknown Verified 09/18/16 13:57 haloperidol lactate AdvReac Unknown Verified 09/18/16 13:57 [From Haldol] Physical Exam - Constitutional Appears: No Acute Distress - Eye Exam Eye Exam: EOMI, Normal appearance, PERRL Pupil Exam: NORMAL ACCOMODATION, PERRL - ENT Exam ENT Exam: Mucous Membranes Moist, Normal Exam - Neck Exam Neck exam: Positive for: Normal Inspection - Respiratory Exam Respiratory Exam: Clear to Auscultation Bilateral, NORMAL BREATHING PATTERN - Cardiovascular Exam Cardiovascular Exam: REGULAR RHYTHM Results - Vital Signs Recent Vital Signs: Last Vital Signs Temp 98.0 F 09/08/16 15:35 Pulse 71 09/08/16 15:35 Resp 20 09/08/16 15:35 BP 133/74 09/08/16 21:35 Pulse Ox 94 L 09/08/16 15:35 - Labs Result Diagrams: 09/07/16 20:36 09/09/16 07:53 Labs: Laboratory Results - last 24 hr 09/08/16 09/08/16 17:01 21:16 POC Glucose (mg/dL) 188 H 154 H Assessment & Plan (1) Chest pain Status: Acute Comment: typical chest pain although cardiac enzymes are neg, most likely due to CAD (2) CAD (coronary artery disease) Status: Acute (3) Diabetes mellitus Status: Chronic Priority: Low (4) ESRD needing dialysis Status: Chronic
[2016-09-09] MEDS: guaiFENesin 100 mg/5 ml Syrup UD PO PRN (05:06)
--- NOTE | 2016-09-09 05:07 | CON ---
DATE: 09/08/2016 LOCATION: The patient is located in room 660, bed A. REQUESTING PHYSICIAN: Dr. Bennett Talamantes. REASON FOR RENAL CONSULTATION: End-stage renal disease, for continuation of the hemodialysis. HISTORY OF PRESENT ILLNESS: The patient is a 56-year-old obese female with a past medical h istory significant for longstanding hypertension, diabetes, end-stage renal disease, paroxysmal atria l fibrillation, endometrial carcinoma, status post total abdominal hysterectomy and coronary artery d isease status post CABG, anxiety, bipolar disorder and hydronephroses and status post removal of the left ureteric stent placement. Was admitted yesterday after complaining of the hemodialysis at the c enter. The patient was complaining of chest pain and shortness of breath after completion of the hem odialysis yesterday. Patient's family and sister to center today the Emergency Room for further eval uation. The patient is also very anxious. The patient denies any fever, cough. Denies any nausea, vomiting, diarrhea. No abdominal pain, no dizziness. PAST MEDICAL HISTORY: Significant for longstanding hypertension, diabetes, end-stage renal disease, paroxysmal atrial paroxysmal atrial fibrillation, and anxiety. Questionable bipolar disorder. PAST SURGICAL HISTORY: Status post CABG and total abdominal hysterectomy, and left upper extremity A V fistula, status post removal of the left ureteric stent. ALLERGIES: ALLERGIC TO MORPHINE AND HALOPERIDOL. SOCIAL HISTORY: Denies any smoking, alcohol or drugs. PERSONAL HISTORY: She lives with her sister. FAMILY HISTORY: Not significant. CURRENT MEDICATIONS: Include as follows: Hydralazine 50 mg p.o. q. 8 hours and 1 tablet daily, Coreg 25 mg p.o. q. 12 hours, aspirin 81 mg daily, Flomax 0.4 mg p.o. daily, subcutaneous heparin 50 00 b.i.d., Lexapro 5 mg p.o. daily, Neurontin 100 mg p.o. t.i.d. and Novolin 70/30, 20 units subQ ___ __, Procrit 12,000 units 3 times a week, Renvela 800 mg p.o. t.i.d., Robitussin, Xanax 0.5 mg p.o. b. i.d., and Zemplar 2 mcg 3 times a week, Wednesday, Wednesday, and Wednesday. REVIEW OF SYSTEMS: Significant for chest pain and occasional cough and shortness of breath. All oth er review of systems are reviewed and are negative. PHYSICAL EXAMINATION: VITAL SIGNS: As of 09/08/2016 Blood pressure 136/75, pulse 71, respirations 20, temperature 98, satu ration 94%, height 5 feet 6 inches and weight is 249 pounds. GENERAL: The patient is a 59-year-old middle-aged obese female, well built, well nourished, not in acute distress. HEENT: Pupils normal, reactive to light and accommodation. Conjunctivae pink. Sclerae anicteric. Tongue is moist. NECK: Trachea midline. LUNGS: Symmetric on both sides. Bilateral breath sounds present. Occasional basal crackles present . CARDIOVASCULAR: [place] in the fifth intercostal space midclavicular line. S1 and S2 audible. No murm ur or gallop. The patient has a midsternal scar present. ABDOMEN: Soft. No guarding, no rigidity. No hepatosplenomegaly. CENTRAL NERVOUS SYSTEM: The patient is alert, awake, oriented x 3, nonfocal on examination. Cranial nerves II through XII grossly intact. Sensory and motor system is within normal limits. EXTREMITIES: No cyanosis, no clubbing, no edema. LABORATORY DATA: Include as follows: As of 09/07/2016. WBC 12.5, hemoglobin 9.4, hematocrit is 28. 3, platelets 220, neutrophils 84 bands, 4 lymphs, monos 4, eosinophils 2. PT 13.1, PTT 29. Sodium 1 32, potassium 3.3, chloride 89, CO2 28, BUN 31, creatinine 4.0, glucose 192, calcium 9.6, total bilir ubin 1.1, AST 70, ALT 26, alkaline phosphatase is 99, troponin 0.45 and 0.54, and proBNP 16,900, tota l protein 8.1, albumin is 4.4. Other reports, chest x-ray as of 09/07/2016, cardiomegaly and moderat e venous congestion. SUMMARY: The patient is a 56-year-old obese female with a history of hypertension, diabetes , coronary artery disease status post CABG, end-stage renal disease, paroxysmal atrial fibrillation, complaints with the fluid intake and diet, anxiety, questionable bipolar, who was admitted with chest discomfort and shortness of breath after hemodialysis yesterday and increased proBNP levels within n ormal troponin levels x 3 and chest x-ray consistent with moderate congestion. 1. End-stage renal disease. Continue hemodialysis 3 times a week, Wednesday, Wednesday and Wednesday. 2. Congestive heart failure, most likely secondary to fluid overload secondary to noncompliance with diet and fluid intake. We will try to ultrafiltrate as much as the patient can tolerate, 3.5-4 lite rs during dialysis tomorrow. 3. Mild anemia secondary to renal failure, rule out iron deficiency anemia. 4. Hypertension. Blood pressure is stable. Continue her current medication Coreg at this time and also check urinalysis and urine culture to rule out urinary tract infection, as patient has a chronic pain in the left flank in the dialysis unit. We will follow with you. Thank you for allowing me to participate in your patient's care. Sunil Ordoñez MD cc: [phone] TT: 09/09/2016 05:06:58 Confirmation # [id number] Dictation # [id number] beatrice
[2016-09-09 08:09] LABS: INR 1.1
[2016-09-09] MEDS: (Novolin 70/30) NPH/Regular 70/30 Units/ml 10 ml vial SC SCH ×2 (08:34→17:30)
[2016-09-09] MEDS: (Novolog) Insulin Aspart, Recombinant 100 u/ml 10 ml vial SC SCH ×3 (08:35→17:30)
[2016-09-09 08:44] LABS: POTASSIUM 4.8 mmol/L (3.6-5.2)
[2016-09-09 08:47] LABS: CALCIUM 9.5 mg/dl (8.6-10.4)
[2016-09-09] MEDS ORDERED: Ferric Sodium Gluconat Complex 62.5 mg/5 ml Vial IVPB SCH (09:00)
[2016-09-09] MEDS ORDERED: Paricalcitol 2 mcg/ml Inj IV SCH (09:00)
[2016-09-09] MEDS ORDERED: EPOETIN ALFA 10,000 UNIT/ML ML SC SCH (09:00)
[2016-09-09 10:11] VITALS: RESP 20
[2016-09-09] MEDS ORDERED: EPOETIN ALFA 4,000 UNIT/ML ML Dialysis SC SCH (11:15)
[2016-09-09] MEDS ORDERED: EPOETIN ALFA 4,000 UNIT/ML ML Dialysis IV SCH (11:27)
--- NOTE | 2016-09-09 13:05 | CP.PCM.PN ---
Subjective - Date & Time of Evaluation Date of Evaluation: 09/09/16 Time of Evaluation: 10:31 - Subjective Subjective: Pt seen and examined, is feeling better Objective - Vital Signs/Intake and Output Vital Signs (last 24 hours): Temp Pulse Resp BP Pulse Ox 98.1 F 71 20 142/79 97 09/09/16 12:55 09/09/16 12:55 09/09/16 10:07 09/09/16 12:45 09/09/16 12:55 Intake and Output: 09/09/16 09/09/16 06:59 18:59 Intake Total 340 Balance 340 - Medications Medications: Current Medications Acetaminophen (Tylenol 325mg Tab) 650 mg PO Q4H PRN PRN Reason: Temperature Last Admin: 09/08/16 19:32 Dose: 650 mg Alprazolam (Xanax) 0.5 mg PO BID [facility] Stop: 09/15/16 10:01 Last Admin: 09/08/16 17:31 Dose: 0.5 mg Aspirin (Ecotrin) 81 mg PO DAILY [facility] Last Admin: 09/08/16 09:18 Dose: 81 mg Carvedilol (Coreg) 25 mg PO Q12H [facility] Last Admin: 09/08/16 21:35 Dose: 25 mg Epoetin Aj (Procrit) 12,000 unit IV [facility] Stop: 09/21/16 09:01 Last Admin: 09/09/16 12:19 Dose: 12,000 unit Escitalopram Oxalate (Lexapro) 5 mg PO DAILY [facility] Last Admin: 09/08/16 11:24 Dose: 5 mg Ferric Sodium Gluconate Complex (Ferrlecit) 125 mg IVPB [facility] Stop: 09/17/16 09:01 Last Admin: 09/09/16 11:13 Dose: 125 mg Gabapentin (Neurontin) 100 mg PO TID [facility] Last Admin: 09/08/16 17:31 Dose: 100 mg Guaifenesin (Robitussin) 100 mg PO Q4H PRN PRN Reason: Cough Last Admin: 09/09/16 05:06 Dose: 100 mg Heparin Sodium (Porcine) (Heparin) 5,000 units SC BID [facility] Last Admin: 09/08/16 17:33 Dose: 5,000 units Hydralazine HCl (Apresoline) 50 mg PO Q8H [facility] Last Admin: 09/09/16 05:06 Dose: 50 mg Insulin Aspart (Novolog) 0 unit SC ACHS [facility] PRN Reason: Protocol Last Admin: 09/09/16 08:36 Dose: 1 unit Insulin Human Isoph/Insulin Regular (Novolin 70/30 (70/30 Units/Ml) 10 Ml) 20 units SC ACBD [facility] Last Admin: 09/09/16 08:34 Dose: 20 units Paricalcitol (Zemplar) 2 mcg IV MWF [facility] Last Admin: 09/09/16 11:14 Dose: 2 mcg Sevelamer Carbonate (Renvela) 800 mg PO TIDCC [facility] Last Admin: 09/09/16 08:36 Dose: 800 mg Tamsulosin HCl (Flomax) 0.4 mg PO DAILY [facility] Last Admin: 09/08/16 09:18 Dose: 0.4 mg Vitamin B Complex/Vitamin C (Berocca) 1 tab PO DAILY [facility] Last Admin: 09/08/16 09:17 Dose: 1 tab - Labs Labs: 09/09/16 07:53 PT 11.9 SECONDS (9.7-12.2) 09/09/16 07:53 INR 1.1 09/09/16 07:53 APTT 29 SECONDS (21-34) 09/07/16 20:36 - Constitutional Appears: No Acute Distress - Eye Exam Eye Exam: EOMI, Normal appearance, PERRL Pupil Exam: NORMAL ACCOMODATION, PERRL - ENT Exam ENT Exam: Mucous Membranes Moist, Normal Exam - Respiratory Exam Respiratory Exam: Clear to Ausculation Bilateral, NORMAL BREATHING PATTERN - Cardiovascular Exam Cardiovascular Exam: REGULAR RHYTHM, +S1, +S2. absent: Murmur - GI/Abdominal Exam GI & Abdominal Exam: Soft, Normal Bowel Sounds. absent: Tenderness Assessment and Plan (1) Chest pain Status: Acute (2) CAD (coronary artery disease) Status: Acute (3) Diabetes mellitus Status: Chronic (4) ESRD needing dialysis Status: Chronic
[2016-09-09] MEDS: Vitamin B Complex/Vitamin C Tab PO SCH (14:27)
--- NOTE | 2016-09-09 15:07 | CP.PCM.PN ---
Subjective - Date & Time of Evaluation Date of Evaluation: 09/09/16 Time of Evaluation: 15:00 - Subjective Subjective: Pt seen and examine d today after HD denies any chest pain, sob, dizziness, headache, N/V, abdominal pain , c/o non productive cough No overnight events recorded on monitor troponin x 3 - negative Objective - Vital Signs/Intake and Output Vital Signs (last 24 hours): Temp Pulse Resp BP Pulse Ox 98.1 F 71 20 134/76 97 09/09/16 13:15 09/09/16 13:15 09/09/16 10:07 09/09/16 14:16 09/09/16 13:15 Intake and Output: 09/09/16 09/09/16 06:59 18:59 Intake Total 340 Balance 340 - Medications Medications: Current Medications Acetaminophen (Tylenol 325mg Tab) 650 mg PO Q4H PRN PRN Reason: Temperature Last Admin: 09/09/16 15:01 Dose: 650 mg Alprazolam (Xanax) 0.5 mg PO BID [facility] Stop: 09/15/16 10:01 Last Admin: 09/09/16 14:25 Dose: 0.5 mg Aspirin (Ecotrin) 81 mg PO DAILY [facility] Last Admin: 09/09/16 14:27 Dose: 81 mg Carvedilol (Coreg) 25 mg PO Q12H [facility] Last Admin: 09/09/16 14:16 Dose: 25 mg Epoetin Aj (Procrit) 12,000 unit IV [facility] Stop: 09/21/16 09:01 Last Admin: 09/09/16 12:19 Dose: 12,000 unit Escitalopram Oxalate (Lexapro) 5 mg PO DAILY [facility] Last Admin: 09/08/16 11:24 Dose: 5 mg Ferric Sodium Gluconate Complex (Ferrlecit) 125 mg IVPB MWF [facility] Stop: 09/17/16 09:01 Last Admin: 09/09/16 11:13 Dose: 125 mg Gabapentin (Neurontin) 100 mg PO TID [facility] Last Admin: 09/09/16 14:28 Dose: 100 mg Guaifenesin (Robitussin) 100 mg PO Q4H PRN PRN Reason: Cough Last Admin: 09/09/16 05:06 Dose: 100 mg Heparin Sodium (Porcine) (Heparin) 5,000 units SC BID [facility] Last Admin: 09/09/16 14:28 Dose: 5,000 units Hydralazine HCl (Apresoline) 50 mg PO Q8H [facility] Last Admin: 09/09/16 14:26 Dose: 50 mg Insulin Aspart (Novolog) 0 unit SC ACHS [facility] PRN Reason: Protocol Last Admin: 09/09/16 08:36 Dose: 1 unit Insulin Human Isoph/Insulin Regular (Novolin 70/30 (70/30 Units/Ml) 10 Ml) 20 units SC ACBD [facility] Last Admin: 09/09/16 08:34 Dose: 20 units Paricalcitol (Zemplar) 2 mcg IV MWF [facility] Last Admin: 09/09/16 11:14 Dose: 2 mcg Sevelamer Carbonate (Renvela) 800 mg PO TIDCC [facility] Last Admin: 09/09/16 14:26 Dose: 800 mg Tamsulosin HCl (Flomax) 0.4 mg PO DAILY [facility] Last Admin: 09/09/16 14:26 Dose: 0.4 mg Vitamin B Complex/Vitamin C (Berocca) 1 tab PO DAILY [facility] Last Admin: 09/09/16 14:27 Dose: 1 tab - Labs Labs: 09/09/16 07:53 PT 11.9 SECONDS (9.7-12.2) 09/09/16 07:53 INR 1.1 09/09/16 07:53 APTT 29 SECONDS (21-34) 09/07/16 20:36 Assessment and Plan - Assessment and Plan (Free Text) Assessment: A/P 56 ye old female admitted with chest pain,sob, fluid overload troponin x 3 - negative 02 sat 93-95% room aor Dr. Stahl consulted , recommends ,medical management D/W Dr. Talamantes, stable for discharge home today and f/u with Dr. Talamantes office in 1 week and continue HD as scheduled Discharge plan discussed with patient who understands an d agrees with plan Pt instructed to returns to ED if symptoms returns
--- NOTE | 2016-09-09 15:07 | PCM.HF ---
Heart Failure Core Measure - Heart Failure Ejection Fraction: 40 % or Greater JO-ANN Inhibitor Prescribed: No Contraindication/Reason for not providing: ESRD Beta-Shila Prescribed: Carvedilol Angiotensin II Receptor Shila Prescribed: No Contraindication/Reason for not providing: ESRD AnticoagulationTherapy for Atrial Fibrillation/Atrialflutter: Yes Aldosterone Antagonist Prescribed: No Contraindication/Reason for not providing: ESRD Hydralazine Nitrate Prescribed: Yes Implantable Cardioverter Defibrillator Therapy: No Contraindication/Reason for not providing: e>45 Cardiac Resynchronization Therapy Prescribed: No Contraindication/Reason for not providing: ef>45 - Follow up Will be discharged to: Home Follow Up Date (must be within 7 days from discharge): 09/14/16 Follow Up Time: 09:00
[2016-09-09 17:06] VITALS: BP 123/73; PULSE 82; TEMP 98.3; O2SAT 93
--- NOTE | 2016-09-09 17:56 | PN ---
DATE: 09/09/2016 SUBJECTIVE: The patient is experiencing dry cough and stuffy nose. She denies any chest pain. Shor tness of breath has improved. She underwent hemodialysis today. OBJECTIVE: VITAL SIGNS: Blood pressure 123/73, heart rate 82, temperature 98.3, respirations 20. HEENT: Pale conjunctivae. CHEST: Diminished breath sounds over the bases. HEART: S1, S2 regular. EXTREMITIES: 1+ pitting edema. LABORATORIES: Today's BUN and creatinine of 64 and 7.3, glucose 141, potassium is 4.8. ASSESSMENT: 1. Status post volume overload. 2. Congestive heart failure. 3. Paroxysmal atrial fibrillation. 4. Coronary artery disease, status post coronary artery bypass surgery. 5. End-stage renal disease, on hemodialysis. 6. Anemia. RECOMMENDATIONS: Continue current hydralazine, Coreg, aspirin, subcutaneous heparin, Robitussin and hydralazine. The patient will receive Coumadin 5 mg orally today and hopefully she will comply with outpatient Coumadin regimen with an INR follow up as an outpatient. Case was discussed with the [facility]. She is okay for discharge from the cardiac point. Demar Stahl MD cc: [id number] TT: 09/09/2016 17:56:14 Confirmation # [id number] Dictation # [id number]
--- NOTE | 2016-09-09 19:03 | CP.PCM.PN ---
Subjective - Date & Time of Evaluation Date of Evaluation: 09/09/16 Time of Evaluation: 18:35 - Subjective Subjective: pt seen and examined, follow up consult is dictated #[id number] s/p hd today, uf 4. 3lit stable hd tx Objective - Vital Signs/Intake and Output Vital Signs (last 24 hours): Temp Pulse Resp BP Pulse Ox 98.3 F 82 20 123/73 93 L 09/09/16 16:00 09/09/16 16:00 09/09/16 16:00 09/09/16 16:00 09/09/16 16:00 - Medications Medications: Current Medications Acetaminophen (Tylenol 325mg Tab) 650 mg PO Q4H PRN PRN Reason: Temperature Last Admin: 09/09/16 15:01 Dose: 650 mg Alprazolam (Xanax) 0.5 mg PO BID [facility] Stop: 09/15/16 10:01 Last Admin: 09/09/16 17:38 Dose: 0.5 mg Aspirin (Ecotrin) 81 mg PO DAILY [facility] Last Admin: 09/09/16 14:27 Dose: 81 mg Carvedilol (Coreg) 25 mg PO Q12H [facility] Last Admin: 09/09/16 14:16 Dose: 25 mg Epoetin Aj (Procrit) 12,000 unit IV [facility] [place] Stop: 09/21/16 09:01 Last Admin: 09/09/16 12:19 Dose: 12,000 unit Escitalopram Oxalate (Lexapro) 5 mg PO DAILY [facility] Last Admin: 09/08/16 11:24 Dose: 5 mg Ferric Sodium Gluconate Complex (Ferrlecit) 125 mg IVPB [facility] [place] Stop: 09/17/16 09:01 Last Admin: 09/09/16 11:13 Dose: 125 mg Gabapentin (Neurontin) 100 mg PO TID [facility] Last Admin: 09/09/16 17:37 Dose: 100 mg Guaifenesin (Robitussin) 100 mg PO Q4H PRN PRN Reason: Cough Last Admin: 09/09/16 05:06 Dose: 100 mg Heparin Sodium (Porcine) (Heparin) 5,000 units SC BID [facility] Last Admin: 09/09/16 17:38 Dose: 5,000 units Hydralazine HCl (Apresoline) 50 mg PO Q8H [facility] Last Admin: 09/09/16 14:26 Dose: 50 mg Insulin Aspart (Novolog) 0 unit SC ACHS [facility] PRN Reason: Protocol Last Admin: 09/09/16 17:30 Dose: 3 unit Insulin Human Isoph/Insulin Regular (Novolin 70/30 (70/30 Units/Ml) 10 Ml) 20 units SC ACBD [facility] Last Admin: 09/09/16 17:30 Dose: 20 units Paricalcitol (Zemplar) 2 mcg IV MWF [facility] Last Admin: 09/09/16 11:14 Dose: 2 mcg Sevelamer Carbonate (Renvela) 800 mg PO TIDCC [facility] Last Admin: 09/09/16 17:38 Dose: 800 mg Tamsulosin HCl (Flomax) 0.4 mg PO DAILY [facility] Last Admin: 09/09/16 14:26 Dose: 0.4 mg Vitamin B Complex/Vitamin C (Berocca) 1 tab PO DAILY [facility] Last Admin: 09/09/16 14:27 Dose: 1 tab - Labs Labs: 09/09/16 07:53 PT 11.9 SECONDS (9.7-12.2) 09/09/16 07:53 INR 1.1 09/09/16 07:53 APTT 29 SECONDS (21-34) 09/07/16 20:36
--- NOTE | 2016-09-10 00:04 | CP.PCM.DIS ---
Provider - Provider Date of Admission: 09/08/16 16:51 Attending physician: Bennett Talamantes MD Time Spent in preparation of Discharge (in minutes): 30 Diagnosis - Discharge Diagnosis (1) Chest pain Status: Acute (2) CAD (coronary artery disease) Status: Acute (3) Diabetes mellitus Status: Chronic Priority: Low (4) ESRD needing dialysis Status: Chronic Hospital Course - Lab Results Lab Results: Most Recent Lab Values WBC 12.5 K/uL (4.8-10.8) H 09/07/16 20:36 RBC 3.08 Mil/uL (3.80-5.20) L 09/07/16 20:36 Hgb 9.5 g/dL (11.0-16.0) L D 09/07/16 20:36 Hct 28.3 % (34.0-47.0) L 09/07/16 20:36 MCV 92.2 fL (81.0-99.0) 09/07/16 20:36 MCH 30.8 pg (27.0-31.0) 09/07/16 20:36 MCHC 33.4 g/dL (33.0-37.0) 09/07/16 20:36 RDW 14.5 % (11.5-14.5) 09/07/16 20:36 Plt Count 220 K/uL (130-400) 09/07/16 20:36 MPV 8.8 fL (7.2-11.7) 09/07/16 20:36 Neut % (Auto) 89.4 % (50.0-75.0) H 09/07/16 20:36 Lymph % (Auto) 5.8 % (20.0-40.0) L 09/07/16 20:36 [place] % (Auto) 3.3 % (0.0-10.0) 09/07/16 20:36 Eos % (Auto) 1.2 % (0.0-4.0) 09/07/16 20:36 Baso % (Auto) 0.3 % (0.0-2.0) 09/07/16 20:36 Neut # 11.2 K/uL (1.8-7.0) H 09/07/16 20:36 Lymph # 0.7 K/uL (1.0-4.3) L 09/07/16 20:36 [place] # 0.4 K/uL (0.0-0.8) 09/07/16 20:36 Eos # 0.1 K/uL (0.0-0.7) 09/07/16 20:36 Baso # 0.0 K/uL (0.0-0.2) 09/07/16 20:36 Neutrophils % (Manual) 84 % (50-75) H 09/07/16 20:36 Band Neutrophils % 4 % (0-2) H 09/07/16 20:36 Lymphocytes % (Manual) 6 % (20-40) L 09/07/16 20:36 Monocytes % (Manual) 4 % (0-10) 09/07/16 20:36 Eosinophils % (Manual) 2 % (0-4) 09/07/16 20:36 Hypersegmented Polys Present 09/07/16 20:36 Smudge Cells Present 09/07/16 20:36 Platelet Estimate Normal (NORMAL) 09/07/16 20:36 Large Platelets Present 09/07/16 20:36 Polychromasia Slight 09/07/16 20:36 Poikilocytosis (manual Slight 09/07/16 20:36 Anisocytosis (manual) Slight 09/07/16 20:36 PT 11.9 SECONDS (9.7-12.2) 09/09/16 07:53 INR 1.1 09/09/16 07:53 APTT 29 SECONDS (21-34) 09/07/16 20:36 Sodium 132 mmol/L (132-148) 09/09/16 07:53 Potassium 4.8 mmol/L (3.6-5.2) 09/09/16 07:53 Chloride 90 mmol/L (98-107) L 09/09/16 07:53 Carbon Dioxide 21 mmol/L (22-30) L 09/09/16 07:53 Anion Gap 26 (10-20) H 09/09/16 07:53 BUN 64 mg/dL (7-17) H 09/09/16 07:53 Creatinine 7.3 MG/DL (0.7-1.2) H D 09/09/16 07:53 Est GFR ( Amer) 7 09/09/16 07:53 Est GFR (Non-Af Amer) 6 09/09/16 07:53 POC Glucose (mg/dL) 251 mg/dL (65-110) H 09/09/16 16:34 Random Glucose 141 mg/dL (65-105) H 09/09/16 07:53 Calcium 9.5 mg/dl (8.6-10.4) 09/09/16 07:53 Total Bilirubin 1.1 mg/dL (0.2-1.3) 09/07/16 20:36 AST 17 U/L (14-36) 09/07/16 20:36 ALT 26 U/L (9-52) 09/07/16 20:36 Alkaline Phosphatase 99 U/L (38-126) 09/07/16 20:36 Total Creatine Kinase 102 U/L (30-135) 09/08/16 07:12 CK-MB (Mass) 1.53 ng/mL (0.0-3.38) 09/08/16 07:12 Troponin I 0.0450 ng/mL (0.00-0.120) 09/07/16 20:36 Troponin I, Quant 0.0540 ng/mL (0.00-0.120) 09/08/16 07:12 NT-Pro-B Natriuret Pep 07434 pg/mL (0-900) H 09/07/16 20:36 Total Protein 8.1 g/dL (6.3-8.3) 09/07/16 20:36 Albumin 4.4 g/dL (3.5-5.0) 09/07/16 20:36 Globulin 3.7 gm/dL (2.2-3.9) 09/07/16 20:36 Albumin/Globulin Ratio 1.2 (1.0-2.1) 09/07/16 20:36 - Hospital Course Hospital Course: Pt seen and examine d today after HD denies any chest pain, sob, dizziness, headache, N/V, abdominal pain , c/o non productive cough No overnight events recorded on monitor troponin x 3 - negative pt is for discharge Discharge Exam - Eye Exam Eye Exam: EOMI, Normal appearance, PERRL Pupil Exam: NORMAL ACCOMODATION, PERRL - ENT Exam ENT Exam: Mucous Membranes Moist - Respiratory Exam Respiratory Exam: Clear to PA & Lateral, NORMAL BREATHING PATTERN - Cardiovascular Exam Cardiovascular Exam: REGULAR RHYTHM, +S1, +S2 Discharge Plan - Discharge Medications Prescriptions: guaiFENesin/Dextromethorphan [Robitussin DM] 10 ml PO Q6 PRN #240 ml PRN Reason: Cough And Congestion - Follow Up Plan Condition: FAIR Disposition: HOME/ ROUTINE Instructions: Dextromethorphan (By mouth), Heart Failure (DC), Dialysis Diet ( DC), End Stage Kidney Disease (DC) Additional Instructions: f/u with Dr. Atwood office in 1 week continue HD as scheduled MWF Resume all home medications Referrals: Bennett Talamantes MD [Staff Provider] -
--- NOTE | 2016-09-10 00:16 | PN ---
DATE: 09/09/2016 LOCATION: The patient is located in room 660, bed A. REQUESTED BY: Dr. Bennett Talamantes. REASON FOR FOLLOWUP: End-stage renal disease for continuation of the hemodialysis. HISTORY OF PRESENT ILLNESS: The patient is a 56-year-old obese, middle-aged female with a history of longstanding hypertension, diabetes, coronary artery disease, paroxysmal atrial fibrillation, anxiety, questionable bipolar disorder, was admitted with chest pain after completion of the hemodialysis on Wednesday and shortness of breath. The patient is not in acute distress. The patient underwent hemodialysis this morning, had ultrafiltration about 4.3 liters, tolerated hemodialysis very well without any complication. Denies any chest pain, palpitation, shortness of breath at this time. PHYSICAL EXAMINATION: VITAL SIGNS: As follows: Blood pressure 123/73, pulse 82, respirations 20, temperature 98.3, saturation 93%, height 5 feet 6 inches and weight is 275 pounds. GENERAL: The patient is a 56-year-old obese, middle-aged female, well built, well nourished, not in distress. HEENT: Pupils normal, reactive to light and accommodation. Conjunctivae pink. Sclerae anicteric. Tongue is moist. NECK: Trachea is midline. LUNGS: Symmetric on both sides. Bilateral breath sounds present. Clear on auscultation. CARDIOVASCULAR: [place] in the fifth intercostal space midclavicular line. S1 and S2 audible. No murmur or gallop. ABDOMEN: Normal in appearance, soft, tympanic. No guarding, no rigidity. No hepatosplenomegaly. CENTRAL NERVOUS SYSTEM: The patient is alert, awake, oriented x 3, nonfocal on examination. EXTREMITIES: No cyanosis, no clubbing, no edema. CURRENT MEDICATIONS: Include as follows: Hydralazine 50 mg p.o. q. 8 hours, 1 tablet daily, Coreg 25 mg p.o. q. 12 hours, Coumadin 5 mg daily, Ecotrin 81 mg p.o. daily, Flomax 0.4 mg p.o. daily, subcutaneous heparin 5000 b.i.d., Lexapro 5 mg p.o. daily, Neurontin 100 mg p.o. t.i.d., insulin Novolin 70/30, 20 units subQ before meals b.i.d. and Epogen 12,000 units subQ 3 times a week, Wednesday, Wednesday, Wednesday, Renvela 800 mg p.o. t.i.d., Robitussin 100 mg p.o. q. 4 hours p.r.n. for cough, Tylenol 325 mg 2 tablets q. 4 hours p.r.n. for temperature, Xanax 0.5 mg p.o. b.i.d., Zemplar 2 mcg 3 times a week. SUMMARY: The patient is a 56-year-old middle-aged obese female with hypertension, diabetes, end-stage renal disease, anxiety, chest pain and shortness postdialysis. IMPRESSION AND PLAN: 1. End-stage renal disease. Continue hemodialysis 3 times a week, Wednesday, Wednesday and Wednesday. 2. Mild congestive heart failure secondary to fluid overload secondary to noncompliance with diet and fluid intake. The patient underwent hemodialysis today, had ultrafiltration about 4.3 liters. Advised the patient to watch fluid intake. 3. Hypertension. Blood pressure is stable. Continue hydralazine and Coreg. 4. Anxiety. Continue Xanax and Lexapro. Will follow with you. Thank you for allowing me to participate in your patient's care for possible discharge this evening. Sunil Ordoñez MD cc: [phone] TT: 09/10/2016 00:15:50 Confirmation # [id number] Dictation # [id number] [email or web address]
--- NOTE | 2016-09-11 13:04 | CARD ---
APPROVED REPORT EKG Measurement Heart [id number] <Conclusion> Normal sinus rhythm Nonspecific ST abnormality Abnormal ECG
--- NOTE | 2016-09-11 13:04 | CARD ---
APPROVED REPORT EKG Measurement Heart [id number] 172P25 [id number] <Conclusion> Normal sinus rhythm Normal ECG
--- NOTE | 2016-09-11 13:14 | CARD ---
APPROVED REPORT EKG Measurement Heart [id number] 178P6 [id number] <Conclusion> Normal sinus rhythm Nonspecific ST and T wave abnormality Prolonged QT Abnormal ECG
== END 2016-09-09 19:19 | disposition home or self-care (01) | DRG 291 ==
LOC: C.ER 17:51 → C.9E 21:59 → C.6T 22:45 → OBSVTOIN 09-08 16:51
PROVIDERS: ADMIT Internal Medicine; ATTEND Internal Medicine
PROC: 5A1D00Z (ICD-10-PCS; principal; 2016-09-09)
DX: I13.2 Hypertensive heart and chronic kidney disease with heart failure and with stage 5 chronic kidney disease, or end stage renal disease (principal); N18.6 End stage renal disease; E11.22 Type 2 diabetes mellitus with diabetic chronic kidney disease; I25.10 Atherosclerotic heart disease of native coronary artery without angina pectoris; E66.01 Morbid (severe) obesity due to excess calories; F20.9 Schizophrenia, unspecified; I50.9 Heart failure, unspecified; Z99.2 Dependence on renal dialysis; Z79.4 Long term (current) use of insulin; Z95.1 Presence of aortocoronary bypass graft; J44.9 Chronic obstructive pulmonary disease, unspecified; F32.9 Major depressive disorder, single episode, unspecified; E78.00 Pure hypercholesterolemia, unspecified; M06.9 Rheumatoid arthritis, unspecified; Z91.11 Patient's noncompliance with dietary regimen; E11.319 Type 2 diabetes mellitus with unspecified diabetic retinopathy without macular edema; I48.0 Paroxysmal atrial fibrillation; D63.1 Anemia in chronic kidney disease; F41.9 Anxiety disorder, unspecified

== ENCOUNTER 2016-09-18 13:38 | Inpatient (IN) | payer MEDICARE, MEDICAID ==
[2016-09-18 13:58] VITALS: BMI 43.5
[2016-09-18 14:24] LABS: BASO # 0.1 K/uL (0.0-0.2); BASO % 0.4 % (0.0-2.0); EOS # 0.1 K/uL (0.0-0.7); HEMATOCRIT 26.7 % (34.0-47.0); LYMPH # 0.7 K/uL (1.0-4.3); LYMPH % 5.8 % (20.0-40.0); MEAN CELL VOLUME 95.2 fL (81.0-99.0); MEAN CORPUSCULAR HEMOGLOBIN 30.9 pg (27.0-31.0); MEAN CORPUSCULAR HGB CONC 32.5 g/dL (33.0-37.0); MEAN PLATELET VOLUME 9.3 fL (7.2-11.7); MONO # 0.6 K/uL (0.0-0.8); MONO % 4.7 % (0.0-10.0); PLATELET COUNT 165 K/uL (130-400); RED CELL DISTRIBUTION WIDTH 14.9 % (11.5-14.5); WHITE BLOOD COUNT 12.5 K/uL (4.8-10.8)
[2016-09-18 14:32] LABS: POTASSIUM 5.4 mmol/L (3.6-5.2)
[2016-09-18 14:35] LABS: ALB/GLOB RATIO 1.2 (1.0-2.1); BILIRUBIN,TOTAL 1.1 mg/dL (0.2-1.3); TOTAL PROTEIN 7.4 g/dL (6.3-8.3)
[2016-09-18 14:36] LABS: CALCIUM 9.6 mg/dl (8.6-10.4)
[2016-09-18 14:45] LABS: NEUTROPHIL 89 % (50-75); TOTAL CELLS COUNTED 100
[2016-09-18 14:47] LABS: TROPONIN I 0.106 ng/mL (0.00-0.120)
--- NOTE | 2016-09-18 15:03 | RAD ---
PROCEDURE: CHEST RADIOGRAPH, 1 VIEW HISTORY: Shortness of breath COMPARISON: 09/07/2016 FINDINGS: LUNGS: Prominent diffuse increased interstitial lung markings suggestive for moderate to severe venous congestion versus edema versus infiltrate. PLEURA: As above. CARDIOVASCULAR: Status post median sternotomy. Cardiomegaly. OSSEOUS STRUCTURES: Degenerative changes in the spine and shoulders. VISUALIZED UPPER ABDOMEN: Normal. OTHER FINDINGS: None. IMPRESSION: Prominent diffuse increased interstitial lung markings suggestive for moderate to severe venous congestion versus edema versus infiltrate. Status post median sternotomy. Cardiomegaly.
--- NOTE | 2016-09-18 15:06 | C.PDOC ---
History Of Present Illness A 56 year old female presents to the emergency room with complaints of worsening shortness of breath for the last few days. Patient has dialysis today and last went on Wednesday. Patient notes a mild cough. Patient denies any fever , chills, chest pain, headaches, dizziness, nausea, vomiting, or any other complaints. Time Seen by Provider: 09/18/16 14:05 Chief Complaint (Nursing): Shortness Of Breath History Per: Patient History/Exam Limitations: no limitations Onset/Duration Of Symptoms: Days (Few days) Current Symptoms Are (Timing): Still Present Severity: Mild Associated Symptoms: denies: Fever, Chills, Chest Pain, Dizziness Recent travel outside of the [place]: No Past Medical History Reviewed: Historical Data, Nursing Documentation, Vital Signs Vital Signs: Last Vital Signs Temp 97.7 F 09/18/16 13:58 Pulse 87 09/18/16 16:07 Resp 20 09/18/16 16:07 BP 166/88 H 09/18/16 16:07 Pulse Ox 93 L 09/18/16 16:07 - Medical History PMH: Anxiety, Arthritis, Asthma, Atrial Fibrillation, Back Problems (chronic back pain), CAD (CABG), CHF, COPD, Depression, Diabetes, Deep Vein Thrombosis, HTN, Hypercholesterolemia, Kidney Stones, End Stage Renal Disease, Chronic Kidney Disease, Rheumatoid Arthritis, Schizophrenia Surgical History: CABG (X4), Cholecystectomy, Coronary Stent - [facility] Procedures D & C NEC (06/07/13) DILATION OF LEFT URETER WITH INTRALUMINAL DEVICE, ENDO (05/12/15) EXCISION OF ASCENDING COLON, ENDO, DIAGN (04/23/16) HEMODIALYSIS (10/10/14) INSPECTION OF LOWER INTESTINAL TRACT, ENDO (04/23/16) LAPAROSCOP REMOVE OVARIES/TUBES (06/26/13) LAPAROSCOPIC RADICAL ABDOMINAL HYSTERECTOMY (06/26/13) LAPAROSCOPIC ROBOTIC ASSISTED PROCEDURE (06/26/13) LYMPHATIC STRUCT BIOPSY (06/26/13) OTHER ENDOSCOPY OF SM INTEST (07/27/14) PACKED CELL TRANSFUSION (06/07/13) PERFORMANCE OF URINARY FILTRATION, MULTIPLE (12/24/15) PERFORMANCE OF URINARY FILTRATION, SINGLE (09/08/16) TRANSFUSE NONAUT FROZEN PLASMA IN PERIPH VEIN, PERC (04/23/16) TRANSFUSE NONAUT WHOLE BLOOD IN PERIPH VEIN, PERC (04/23/16) VENOUS CATHETERIZATION NEC (06/07/13) Family History: States: Unknown Family Hx, Diabetes - Social History Hx Tobacco Use: Yes Hx Alcohol Use: Yes Hx Substance Use: Yes - Immunization History Hx Tetanus Toxoid Vaccination: No Hx Influenza Vaccination: No Hx Pneumococcal Vaccination: No Review Of Systems Constitutional: Negative for: Fever, Chills Cardiovascular: Negative for: Chest Pain Respiratory: Positive for: Cough, Shortness of Breath Gastrointestinal: Negative for: Nausea, Vomiting, Diarrhea Neurological: Negative for: Headache, Dizziness Physical Exam - Physical Exam Appears: Non-toxic Skin: Warm, Dry, No Rash Head: Atraumatic, Normacephalic Oral Mucosa: Moist Cardiovascular: Rhythm Regular Respiratory: Decreased Breath Sounds (Bilaterally), No Rales, No Rhonchi, No Wheezing Gastrointestinal/Abdominal: Soft, No Tenderness, No Guarding, No Rebound Extremity: Normal ROM, No Tenderness, No Calf Tenderness, No Deformity, No Swelling Neurological/Psych: Oriented x3, Normal Speech, Normal Cognition ED Course And Treatment - Laboratory Results Result Diagrams: 09/18/16 14:19 09/18/16 14:19 ECG: Interpreted By Me ECG Rhythm: R BBB (incomplete) Rate From EC O2 Sat by Pulse Oximetry: 86 - Radiology CXR: Interpreted by Me CXR Interpretation: Yes: Other (mild CHF) - CT Scan/US Head Other Rad Studies (CT/US): Radiology Report Reviewed CT/US Interpretation: IMPRESSION: No evidence of acute intracranial hemorrhage intracranial collection mass effect or midline shift. Medical Decision Making Medical Decision Making: Plan: -- EKG -- CXR -- Labs Pt remained stable in the ED, but slow to respond Post normal Ph and CO2 ct head ordered and returned unremarkable Pt progressively more alert No indication of CVA sepsis, hypoxia (pa2 92%) and MS improving Pt will need admission for dialysis and further evaluation of MS Discussed with dr Talamantes and Marcus who agree with plan Disposition - Disposition Disposition: HOSPITALIZED Disposition Time: 18:14 Condition: GOOD - Clinical Impression Clinical Impression: ESRD needing dialysis, Dyspnea, Altered mental status - Scribe Statement The provider has reviewed the documentation as recorded by the Scribe Wilner Medellin All medical record entries made by the Scribe were at my direction and personally dictated by me. I have reviewed the chart and agree that the record accurately reflects my personal performance of the history, physical exam, medical decision making, and the department course for this patient. I have also personally directed, reviewed, and agree with the discharge instructions and disposition.
[2016-09-18 16:10] LABS: ABG ALLEN TEST POS; CARBOXYHEMOGLOBIN 1.9 % (0.5-1.5); DRAW SITE RRA; HHB 2.1 % (0.0-5.0)
--- NOTE | 2016-09-18 17:55 | CT ---
PROCEDURE: CT HEAD WITHOUT CONTRAST. HISTORY: AMS COMPARISON: Comparison is made to the previous study dated 05/12/2015 TECHNIQUE: Axial computed tomography images were obtained through the head/brain without intravenous contrast. Radiation dose: Total exam DLP = 1396.78 mGy-cm. This CT exam was performed using one or more of the following dose reduction techniques: Automated exposure control, adjustment of the mA and/or kV according to patient size, and/or use of iterative reconstruction technique. FINDINGS: HEMORRHAGE: No intracranial hemorrhage. BRAIN: No mass effect or edema. No atrophy or chronic microvascular ischemic changes. VENTRICLES: Unremarkable. No hydrocephalus. CALVARIUM: Unremarkable. PARANASAL SINUSES: Unremarkable as visualized. No significant inflammatory changes. MASTOID AIR CELLS: Unremarkable as visualized. No inflammatory changes. OTHER FINDINGS: None. IMPRESSION: No evidence of acute intracranial hemorrhage intracranial collection mass effect or midline shift.
--- NOTE | 2016-09-18 21:01 | CP.PCM.PN ---
Subjective - Date & Time of Evaluation Date of Evaluation: 09/18/16 Time of Evaluation: 21:00 - Subjective Subjective: pt seen and examined, follow up consult is dictated #[id number] Objective - Vital Signs/Intake and Output Vital Signs (last 24 hours): Temp Pulse Resp BP Pulse Ox 97.8 F 81 20 172/72 H 96 09/18/16 19:35 09/18/16 20:12 09/18/16 20:12 09/18/16 20:12 09/18/16 19:35 - Medications Medications: Current Medications Epoetin Aj (Procrit) 10,000 unit IV MWF [facility] Stop: 09/23/16 09:01
[2016-09-18] MEDS: Epoetin Alfa 10,000 unit/ml Dialysis IV SCH (22:15)
[2016-09-18] MEDS: Paricalcitol 2 mcg/ml Inj IV SCH (22:15)
[2016-09-18] MEDS ORDERED: Piperacill/Tazo 2.25gm in Dex 2.25 GM/50 ML BAG IVPB STA (23:22)
--- NOTE | 2016-09-19 08:05 | PN ---
DATE: 09/18/2016 The patient is located in room 663, bed A. REQUESTING PHYSICIAN: Dr. Bennett Talamantes. REASON FOR RENAL CONSULTATION: End-stage renal disease and shortness of breath. HISTORY OF PRESENT ILLNESS: The patient is a 56-year-old obese female with a past medical h istory significant for long-standing hypertension, diabetes, coronary artery disease, hyperlipidemia, end-stage renal disease, bipolar disorder, anxiety, COPD, left hydronephrosis, anxiety, who was admi tted into the Emergency Room with shortness of breath, insomnia and feeling anxious. The patient mis sed hemodialysis today and renal followup consultation requested for continuation of the hemodialysis . The patient is being dialyzed. UF goal is about 4.3 L, tolerating very well. The patient is not in acute distress. The patient is drowsy, arousable, following commands appropriately. No chest aarti n, no palpitation. No nausea, vomiting, or diarrhea. No fever or cough. PHYSICAL EXAMINATION: VITAL SIGNS: Blood pressure 148/73, pulse 81, respirations 20 and temperature 97.8 and saturation 96 %. Height is 5 feet 6 inches and weight is 270 pounds. GENERAL: The patient is a 56-year-old obese female, well built, well nourished, not in acut e distress. HEENT: Pupils normal, reactive to light and accommodation. Conjunctivae pink. Sclerae anicteric. Tongue is moist. NECK: Trachea is midline. LUNGS: Symmetric on both sides. Bilateral breath sounds present. Occasional basal crackles present . CARDIOVASCULAR: [place] in the fifth intercostal space midclavicular line. S1 and S2 audible. No murm ur or gallop. The patient has a midsternal scar present from the previous CABG. ABDOMEN: Soft with a healing superficial ulcer on the anterior abdominal wall. No active bleeding a t this time. Abdomen is soft, tympanic. No guarding, no rigidity. No hepatosplenomegaly. CENTRAL NERVOUS SYSTEM: The patient is alert, awake, arousable, and following commands appropriately . Sensory and motor system is grossly within normal limits. EXTREMITIES: No cyanosis, no clubbing, no edema. ALLERGIES: ALLERGIC TO MORPHINE AND HALOPERIDOL. CURRENT MEDICATIONS: Include as follows, Procrit 10,000 three times a week and Zemplar 2 mcg 3 times a week. HOME MEDICATIONS: Include as follows: Trazodone and hydralazine 25 mg p.o. q. 8 hours and Coumadin 5 mg and Nephrocaps 1 tablet and Flomax 0.4 mg daily, Renvela 800 mg p.o. t.i.d., pravastatin 40 mg p .o. daily and insulin 70/30 twenty units subQ b.i.d., Neurontin 100 mg p.o. t.i.d., Pepcid 20 mg p.o. daily and Lexapro 5 mg p.o. daily and Coreg 25 mg p.o. q. 12, aspirin 81 mg daily, vitamin C 500 mg p.o. daily and Xanax 0.5 mg p.o. b.i.d. The patient was given a pneumococcal vaccine on 09/08/2016. LABORATORY DATA: Includes as follows: As of 09/18/2016. WBC 12.3, hemoglobin 8.7, hematocrit is 26. 7, platelets 165, neutrophils 89, bands 1, lymph 2 monocyte. ABG: pH 7.38 and pCO2 48 and pO2 111, bicarb 27.1, saturation 97.8. Sodium is 137, potassium 5.4, chloride 93, CO2 26, BUN 63, creatinine 7.4, glucose 232, calcium 9.6, total bili 1.1, AST 29, ALT 30, alkaline phosphatase 86. Troponin 0.1 0, total protein 7.4, albumin is 4. CT of the head: No evidence of acute intracranial hemorrhage, m ass effect or midline shift. Other reports: Chest x-ray report as follows as of 09/18/2016. Chest x -ray, prominent diffuse increased interstitial lung markings suggestive for moderate to severe venous congestion versus edema versus infiltrate, status post median sternotomy, cardiomegaly. SUMMARY: The patient is a 56-year-old obese female with a history of longstanding hypertens ion, diabetes, coronary artery disease, status post coronary artery bypass graft, end-stage renal dis ease, bipolar disorder, anxiety, who was admitted with shortness of breath, not sleeping well with di ffuse increased markings, rule out infiltrates versus congestive heart failure. 1. End-stage renal disease. Continue hemodialysis 3 times a week. 2. Rule out congestive heart failure versus pneumonia. We will add Zosyn 2.25 grams IV q. 8 hours a nd repeat chest x-ray in a.m. and will consider extra dialysis in a.m. if chest x-ray remains the judi e. 3. Bipolar disorder. Continue home medications. 4. Hypertension. Blood pressure is stable. Continue hydralazine and Coreg and also we will continu e Nephrocaps and Renvela 800 mg 2 tablets p.o. t.i.d., Nephrocaps 1 tablet daily and we will continue Epogen and Zemplar during dialysis. The patient is tolerating ultrafiltration about 4.3 L. Thank you for allowing me to participate in your patient's care. Sunil Ordoñez MD cc: [id number] TT: 09/19/2016 08:03:39 Confirmation # [id number] Dictation # [id number] tn
[2016-09-19] MEDS: (Novolog) Insulin Aspart, Recombinant 100 u/ml 10 ml vial SC SCH ×4 (08:30→22:45)
[2016-09-19] MEDS: (Novolin 70/30) NPH/Regular 70/30 Units/ml 10 ml vial SC SCH ×2 (08:31→19:03)
[2016-09-19] MEDS: Sevelamer Carb 2.4 gm/Packet PO SCH ×3 (08:31→18:50)
[2016-09-19] MEDS: Multivitamin Vitamin B Complex (Nephro-Vite) Tab PO SCH (09:16)
[2016-09-19] MEDS: guaiFENesin DM 200 mg-20 mg/10 ml UD PO PRN ×2 (09:16→21:47)
[2016-09-19] MEDS ORDERED: Multivitamin Vitamin B Complex (Nephro-Vite) Tab PO SCH (10:00)
--- NOTE | 2016-09-19 11:06 | RAD ---
Chest x-ray two views History: Congestive heart failure. Comparison: 09/18/2016 Findings: Diffuse increased interstitial lung markings throughout both lungs suggestive for edema and or infiltrate. Cardiomegaly. Status post median sternotomy. Degenerative changes in the spine and shoulders. Calcific tendinopathy of the right proximal humerus. Impression: Diffuse increased interstitial lung markings throughout both lungs suggestive for edema and or infiltrate. Cardiomegaly.
--- NOTE | 2016-09-19 11:25 | CP.PCM.PN ---
Subjective - Date & Time of Evaluation Date of Evaluation: 09/19/16 Time of Evaluation: 11:23 - Subjective Subjective: pt seen and examined, follow up consult is dictated #[id number] s/p chest cxr this am, no change from yesterday r/o chf vs pneumonia will give extra hd toady add zosyn 2. 25 gm ivpg q 8 hrs, ID consult with Dr. Cancino Objective - Vital Signs/Intake and Output Vital Signs (last 24 hours): Temp Pulse Resp BP Pulse Ox 98 F 67 20 119/66 96 09/19/16 07:40 09/19/16 08:00 09/19/16 07:40 09/19/16 07:40 09/19/16 07:40 - Medications Medications: Current Medications Acetaminophen (Tylenol 325mg Tab) 650 mg PO Q4H PRN PRN Reason: Temperature Ascorbic Acid (Vitamin C 500 Mg Tab) 500 mg PO DAILY [facility] Last Admin: 09/19/16 09:16 Dose: 500 mg Aspirin (Ecotrin) 81 mg PO DAILY [facility] Last Admin: 09/19/16 09:16 Dose: 81 mg Carvedilol (Coreg) 25 mg PO Q12H [facility] Last Admin: 09/19/16 05:17 Dose: 25 mg Clopidogrel Bisulfate (Plavix) 75 mg PO DAILY [facility] Last Admin: 09/19/16 09:16 Dose: 75 mg Epoetin Aj (Procrit) 10,000 unit IV MWF [facility] Stop: 09/23/16 09:01 Last Admin: 09/18/16 22:15 Dose: 10,000 unit Famotidine (Pepcid) 20 mg PO DAILY [facility] Last Admin: 09/19/16 09:16 Dose: 20 mg Guaifenesin/Dextromethorphan (Robitussin Dm) 10 ml PO Q6 PRN PRN Reason: Cough and congestion Last Admin: 09/19/16 09:16 Dose: 10 ml Heparin Sodium (Porcine) (Heparin) 5,000 units SC Q8 [facility] Last Admin: 09/19/16 05:16 Dose: 5,000 units Hydralazine HCl (Apresoline) 25 mg PO Q8H [facility] Last Admin: 09/19/16 05:18 Dose: 25 mg Piperacillin Sod/Tazobactam Sod (Zosyn 2.25 Gm Iv Premix) 2.25 gm in 50 mls @ 100 mls/hr IVPB Q8 [facility] Insulin Aspart (Novolog) 0 unit SC ACHS [facility] PRN Reason: Protocol Last Admin: 09/19/16 08:30 Dose: 2 unit Insulin Human Isoph/Insulin Regular (Novolin 70/30 (70/30 Units/Ml) 10 Ml) 20 units SC BIDCC [facility] Last Admin: 09/19/16 08:31 Dose: 20 units Paricalcitol (Zemplar) 2 mcg IV MWF [facility] Stop: 09/23/16 09:01 Last Admin: 09/18/16 22:15 Dose: 2 mcg Rosuvastatin Calcium (Crestor) 5 mg PO HS [facility] Sevelamer Carbonate (Renvela) 2.4 gm PO TIDCC [facility] Last Admin: 09/19/16 08:31 Dose: 2.4 gm Tamsulosin HCl (Flomax) 0.4 mg PO DAILY [facility] Last Admin: 09/19/16 09:16 Dose: 0.4 mg Vitamin B Complex/Vit C/Folic Acid (Nephro-Marielena) 1 tab PO DAILY [facility] Last Admin: 09/19/16 09:16 Dose: 1 tab
[2016-09-19] MEDS: Piperacill/Tazo 2.25gm in Dex 2.25 GM/50 ML BAG IVPB SCH ×2 (13:43→21:48)
[2016-09-19] MEDS ORDERED: Morphine 4 MG/ML VIAL IV ONE (13:47)
--- NOTE | 2016-09-19 13:57 | CP.PCM.PN ---
Subjective - Date & Time of Evaluation Date of Evaluation: 09/19/16 Time of Evaluation: 13:50 - Subjective Subjective: CALLED BY RN V TO SEE THE PATIENT -- 56 Y/O FEMALE SEEN AND EXAMINED TODAY, PT C /O INTERMITTENT, NON-RADIATING CHEST PAIN FOR FEW WEEKS WHICH IS GETTING WORSE TODAY WITH COUGHING, B/L CTA, VSS, RESPIRATION EASY AND UNLABORED, IN MILD DISTRESS, EKG- NSR, ROMIX3, CXRAY, CARDIO CONSULT- DR TENORIO, ORDERED PER DR JADE. WILL CONTINUE TO MONITOR THE PATIENT. Objective - Vital Signs/Intake and Output Vital Signs (last 24 hours): Temp Pulse Resp BP Pulse Ox 98.2 F 75 20 139/70 95 09/19/16 12:00 09/19/16 13:19 09/19/16 13:19 09/19/16 13:19 09/19/16 13:19 - Medications Medications: Current Medications Acetaminophen (Tylenol 325mg Tab) 650 mg PO Q4H PRN PRN Reason: Temperature Ascorbic Acid (Vitamin C 500 Mg Tab) 500 mg PO DAILY [facility] Last Admin: 09/19/16 09:16 Dose: 500 mg Aspirin (Ecotrin) 81 mg PO DAILY [facility] Last Admin: 09/19/16 09:16 Dose: 81 mg Carvedilol (Coreg) 25 mg PO Q12H [facility] Last Admin: 09/19/16 05:17 Dose: 25 mg Clopidogrel Bisulfate (Plavix) 75 mg PO DAILY [facility] Last Admin: 09/19/16 09:16 Dose: 75 mg Epoetin Aj (Procrit) 10,000 unit IV MWF [facility] Stop: 09/23/16 09:01 Last Admin: 09/18/16 22:15 Dose: 10,000 unit Famotidine (Pepcid) 20 mg PO DAILY [facility] Last Admin: 09/19/16 09:16 Dose: 20 mg Guaifenesin/Dextromethorphan (Robitussin Dm) 10 ml PO Q6 PRN PRN Reason: Cough and congestion Last Admin: 09/19/16 09:16 Dose: 10 ml Heparin Sodium (Porcine) (Heparin) 5,000 units SC Q8 [facility] Last Admin: 09/19/16 13:39 Dose: 5,000 units Hydralazine HCl (Apresoline) 25 mg PO Q8H [facility] Last Admin: 09/19/16 05:18 Dose: 25 mg Piperacillin Sod/Tazobactam Sod (Zosyn 2.25 Gm Iv Premix) 2.25 gm in 50 mls @ 100 mls/hr IVPB Q8 [facility] Last Admin: 09/19/16 13:43 Dose: 100 mls/hr Insulin Aspart (Novolog) 0 unit SC ACHS [facility] PRN Reason: Protocol Last Admin: 09/19/16 12:48 Dose: 2 unit Insulin Human Isoph/Insulin Regular (Novolin 70/30 (70/30 Units/Ml) 10 Ml) 20 units SC BIDCC [facility] Last Admin: 09/19/16 08:31 Dose: 20 units Paricalcitol (Zemplar) 2 mcg IV MWF [facility] Stop: 09/23/16 09:01 Last Admin: 09/18/16 22:15 Dose: 2 mcg Rosuvastatin Calcium (Crestor) 5 mg PO HS [facility] Sevelamer Carbonate (Renvela) 2.4 gm PO TIDCC [facility] Last Admin: 09/19/16 12:48 Dose: 2.4 gm Tamsulosin HCl (Flomax) 0.4 mg PO DAILY [facility] Last Admin: 09/19/16 09:16 Dose: 0.4 mg Vitamin B Complex/Vit C/Folic Acid (Nephro-Marielena) 1 tab PO DAILY [facility] Last Admin: 09/19/16 09:16 Dose: 1 tab
[2016-09-19] MEDS: Acetaminophen-Codeine 300/30 mg Tab PO PRN (18:51)
--- NOTE | 2016-09-19 20:26 | CON ---
DATE: 09/19/2016 CHIEF COMPLAINT AND REASON FOR CONSULTATION: The patient referred by Dr. Talamantes. This patient has history of bipolar versus schizophrenia. The patient is well known to me. Has been complaining that she is seeing demons and that she is not sleeping. The patient reports she was taking Risperdal bef ore. HISTORY OF PRESENT ILLNESS: This is the case of a 56-year-old female who is well known to me, having treated her numerous times in the past. The patient was admitted here for worsening shortness of br eath. The patient had dialysis. The patient states she was not feeling well. She said that a few d ays ago she was complaining of cough and shortness of breath. She said she may have pneumonia while she was having dialysis. The patient was admitted here for treatment of her breathing problems, but referred for comanagement as the patient has been complaining of increasing fear and hallucinations. She said she is seeing demons and she is not sleeping well at night. The patient was taking before Lexapro, trazodone and Xanax. She says she needs her Xanax to calm her down. She said she is not fe eling well. The patient has an extensive psychiatric history, but has been maintained on psych medic ations as an outpatient. She states she wants to go back to Risperdal because of the hallucinations and trouble sleeping and anxiety. PAST PSYCHIATRIC HISTORY: Schizoaffective disorder, bipolar type with multiple psych admissions. PAST MEDICAL HISTORY: History of atrial fibrillation, CHF, COPD, arthritis, asthma, back problems, d iabetes, end-stage renal disease on dialysis, rheumatoid arthritis. ALLERGIES: MORPHINE AND HALDOL. Note also patient has history of multiple psych admissions in the past. PSYCHOSOCIAL HISTORY: The patient disabled secondary to her psych problems. [facility] LIST OF CURRENT MEDICATIONS: Includes hydralazine, Coreg, Crestor, Ecotrin, Flomax, heparin, insulin and Plavix. The patient is on Xanax 0.5 t.i.d. p.r.n., Zosyn, Zemplar. The patient was seen in dialysis room today. VITAL SIGNS: Temperature is 97.8, pulse rate is 76, blood pressure 129/69, respirations 20, oxygen s at is 96%. REVIEW OF SYSTEMS: GENERAL: The patient is alert, verbal, but noted to be very anxious, in dialysis room. She is askin g for Xanax. She says she needs something for sleep because she is seeing demons. SKIN: No diaphoresis. HEENT: No headache or dizziness. NECK: Supple. RESPIRATORY: No dyspnea. CARDIOVASCULAR: No chest pain. GASTROINTESTINAL: No nausea, vomiting. EXTREMITIES: The patient complaining of pain. MUSCULOSKELETAL: Feels weak. NEUROLOGIC: Alert with some periods of confusion. GENITOURINARY: No dysuria. MENTAL STATUS EXAMINATION: Obese female who looks stated age, 5 feet 6 inches and weighs 270 pounds. Mood is anxious, oriented x 3. Affect is reactive. Speech spontaneous. Thought process coherent. Thought content: The patient is asking for anxiety medications, something to readjust her sleeping medication. She is afraid, she is seeing demons at night. The patient having off and on visual peggy lucinations and paranoia. No suicidal or homicidal ideation. Attention and memory seem to be limite d. Insight and judgment limited. Impulse control is fair at this time. IMPRESSION: History of schizoaffective disorder, bipolar type with possible superimposed metabolic e ncephalopathy secondary to medical problems. The patient has a history of multiple medical problems. PLAN AND RECOMMENDATION: The patient seen, meds reviewed. We will readjust her psych meds as needed . May continue the Xanax 0.5 mg p.o. t.i.d. p.r.n. with Trazodone 50 mg at bedtime and then Risperda l 1 mg at bedtime for psychosis. The patient used to take higher doses before, but I do remember in the past when she was given a higher dose, she became very sedated. We will start her with low dose Risperdal as the patient is complaining of psychotic symptoms. Continue dialysis as ordered. Contin ue antibiotics as ordered. Ab Vo MD cc: [id number] TT: 09/19/2016 20:26:16 Confirmation # [id number] Dictation # [id number] linda
--- NOTE | 2016-09-19 20:58 | PN ---
DATE: 09/19/2016 The patient is located in room 663, bed A. REQUESTED BY: Dr. Bennett Talamantes. REASON FOR RENAL CONSULTATION: End-stage renal disease for continuation of hemodialysis. HISTORY OF PRESENT ILLNESS: The patient is a 56-year-old obese female with a past medical h istory significant for longstanding hypertension, diabetes, end-stage renal disease, coronary artery disease status post CABG, has anxiety and bipolar disorder, who was admitted with the chief complaint s of shortness of breath and cough associated with yellow sputum and also anxiety. The patient under went hemodialysis yesterday and ultrafiltration about 4 liters. The patient is still complaining of shortness of breath and scheduled for extra dialysis this afternoon. Denies any fever, denies any na usea, vomiting. Denies any diarrhea. Denies any fever. PHYSICAL EXAMINATION: VITAL SIGNS: As follows: Blood pressure 134/71, pulse 77, respirations about 20, temperature 98.2. HEENT: Pupils normal, reactive to light and accommodation. Conjunctivae pink. Sclerae anicteric. Tongue is moist. NECK: Trachea is midline. LUNGS: Symmetric on both sides. Bilateral breath sounds present. Bilateral basal crackles present. CARDIOVASCULAR: Brock in the fifth intercostal space midclavicular line. S1 and S2 audible. No murm ur or gallop. ABDOMEN: Normal in appearance, soft, tympanic. No guarding, no rigidity. No hepatosplenomegaly. CENTRAL NERVOUS SYSTEM: The patient is alert, awake, oriented x 3, nonfocal on examination. Cranial nerves II through XII grossly intact. Sensory and motor system is within normal limits. EXTREMITIES: No cyanosis, no clubbing, no edema. CURRENT MEDICATIONS: Include as follows: Hydralazine 50 mg p.o. q. 8 hours, Coreg 25 mg p.o. q. 12 hours, Crestor 5 mg at bedtime, trazadone 50 mg p.o. at bedtime, Ecotrin 81 mg daily, Flomax 0.4 mg p .o. daily, subcutaneous heparin 5000 q. 8 hours, Nephro-Marielena 1 tablet daily, Novolin 70/30 with 20 un its subQ b.i.d., insulin as per NovoLog for sliding scale, Pepcid 20 mg p.o. daily, Plavix 75 mg p.o. daily. Procrit 10,000 units 3 times a week, Wednesday, Wednesday, Wednesday. Renvela 2.4 grams p.o. t.i. d., Risperdal 1 mg p.o. at bedtime and Robitussin-DM 10 mL p.o. q. 6 hours and Tylenol 650 mg p.o. q. 4 hours p.r.n., Tylenol with codeine 1 tablet p.o. q. 4 hours p.r.n. for pain, and vitamin C 500 mg p.o. daily, Xanax 0.5 mg p.o. t.i.d. Zemplar 2 mcg 3 times a week, Wednesday, Wednesday, Wednesday. Zosyn 2.25 grams IV q. 8 hours. LABORATORY DATA: Include as follows: As of 09/18/2016, WBC 12.5, hemoglobin 8.7, hematocrit is 26.7 , platelet 165. BUN and creatinine 63/7.4, potassium 5.4. As of 09/19/2016, CPK 85 and CK-MB 1.7. Troponin 0.10 and the second one 0.08. Influenza antibody is negative. Other reports, chest x-ray a s of 09/19/2016: Impression is diffuse increased interstitial lung markings throughout both lungs, s uggestive for edema and infiltrates and cardiomegaly. SUMMARY: The patient is a 56-year-old obese female with history of hypertension, diabetes, end-stage renal disease, coronary artery disease status post CABG, who was admitted with cough, short ness of breath and chest discomfort and also anxiety. The patient underwent hemodialysis yesterday, ultrafiltration about 4 liters, cough associated with yellow sputum. 1. End-stage renal disease. Continue hemodialysis 3 times a week. 2. Congestive heart failure versus pneumonia. We will give an extra hemodialysis today and we will try to ultrafiltrate 3 liters today again and we will also check a sputum for culture and Gram stain and also on Zosyn 2.25 grams IV 8 hours and we will request ID consult for possible pneumonia. 3. Hypertension. Blood pressure is stable. Continue Coreg and hydralazine. 4. Anemia, most likely secondary to renal failure, rule out iron deficiency anemia. PLAN: We will check iron, TIBC, ferritin level with the next hemodialysis and continue Epogen 10,000 units 3 times a week, also Zemplar 2 mcg 3 times a week and continue Renvela and Nephro-Marielena. Case discussed with Dr. Talamantes. We will follow with you. Thank you for allowing me to participate in your patient's care. Sunil Ordoñez MD cc: [id number] TT: 09/19/2016 20:57:58 Confirmation # [id number] Dictation # [id number] mn
--- NOTE | 2016-09-19 21:08 | CON ---
DATE: 09/19/2016 CHIEF COMPLAINT: Chest tightness. HISTORY OF PRESENT ILLNESS: The patient is a 56-year-old female who has history of hyperten ledy, diabetes mellitus, end-stage renal disease on hemodialysis and diabetic retinopathy and legal b lindness, history of coronary artery disease status post quadruple bypass surgery in a [facility] al few years ago. The patient underwent cardiac catheterization twice since then and was recommended medical therapy. The patient presents because of chest tightness and cough. The patient denies any sputum production and is unaware of any fever or chills. SOCIAL HISTORY: The patient is a nonsmoker. MEDICATIONS: Hydralazine 25 mg q. 8 hours, Coreg 25 mg once a day, Crestor 5 mg once a day, aspirin 81 mg once a day, heparin 5000 units subcutaneous q. 8 hours, Plavix 75 mg once a day, Renvela 2.4 mg t.i.d., vitamin C 500 mg daily. Zemplar 2 mcg intravenously Wednesday, Wednesday and Wednesday. Zosyn 2. 25 g intravenously q. 8 hours. REVIEW OF SYSTEMS: The patient denies any dizziness or syncope. No palpitation. PAST MEDICAL HISTORY: Hypertension, diabetes mellitus, end-stage renal disease on hemodialysis, nery nary artery disease status post coronary bypass surgery, paroxysmal atrial fibrillation, history of h ysterectomy. PHYSICAL EXAMINATION: GENERAL: The patient is a middle-aged female who does not appear to be in acute distress. VITAL SIGNS: Blood pressure /54, heart rate 76, temperature 97.8, respirations 20. HEENT: pale conjunctivae. NECK: No JVD. CHEST: Minimal basal rhonchi. HEART: S1, S2 regular. ABDOMEN: Soft. EXTREMITIES: No pedal edema. EKG revealed sinus rhythm with nonspecific T-wave changes. LABORATORIES: SMA-7 on admission: Sodium 137, potassium 5.4, chloride 93, CO2 of 26, glucose 132, B UN 63, creatinine 7.4. Two sets of troponins are negative. Yesterday's hemoglobin and hematocrit 8. 7 and 26.7, white count 12.5, platelet count 165,000. Head CT scan without contrast performed yester day, no evidence of acute intracranial abnormality. Chest x-ray revealed mild to moderate CHF, cardi omegaly. ASSESSMENT: 1. Exacerbation of congestive heart failure. Consider acute systolic dysfunction. 2. Consider volume overload. 3. Atypical chest pain, myocardial infarction is ruled out. 4. Paroxysmal atrial fibrillation. 5. Anxiety. 6. Hypertension and diabetes mellitus. 7. Coronary artery disease status post quadruple bypass surgery a few years ago. RECOMMENDATIONS: Continue hydralazine 25 mg q. 8 hours, Coreg 25 mg twice a day, Crestor at 5 mg onc e a day, aspirin 81 mg once a day, subcutaneous heparin 5000 units q. 8 hours, Plavix 75 mg once a da y, and Zosyn 2.25 grams intravenously q. 8 hours. Two sets of blood cultures were obtained and Psych iatry consult has been requested. Demar Stahl MD cc: [id number] TT: 09/19/2016 21:07:28 Confirmation # [id number] Dictation # [id number] mn
--- NOTE | 2016-09-20 01:04 | CP.PCM.CON ---
History of Present Illness - History of Present Illness History of Present Illness: Altered mental status, HTN, ESRD, R/O CVA, R/O SZ A 56 year old female presents to the emergency room with complaints of worsening shortness of breath for the last few days. Patient has dialysis today and last went on Wednesday. Patient notes a mild cough. Patient denies any fever , chills, chest pain, headaches, dizziness, nausea, vomiting, or any other complaints. ESRD needing dialysis, Dyspnea, Altered mental status Patient has a history of Quadruple CABG, A Fib, HTN, DM, High Lipid Profile , VT is Ruled Out, R/O Volume overload, s/p chest CXR this am, no change from yesterday r/o CHF vs pneumonia will give extra hd toady add Zosyn 2. 25 gm IVpg q 8 hrs, ID consult with Dr. Julita Hobbs CALLED BY RN V TO SEE THE PATIENT -- 56 Y/O FEMALE SEEN AND EXAMINED TODAY, PT C/O INTERMITTENT, NON-RADIATING CHEST PAIN FOR FEW WEEKS WHICH IS GETTING WORSE TODAY WITH COUGHING, B/L CTA, VSS, RESPIRATION EASY AND UNLABORED , IN MILD DISTRESS, EKG- NSR, ROMIX3, CXRAY, CARDIO CONSULT- DR TENORIO, ORDERED PER DR JADE. WILL CONTINUE TO MONITOR THE PATIENT. Time Seen by Provider: 09/18/16 14:05 Chief Complaint (Nursing): Shortness Of Breath History Per: Patient History/Exam Limitations: no limitations Onset/Duration Of Symptoms: Days (Few days) Current Symptoms Are (Timing): Still Present Severity: Mild Associated Symptoms: denies: Fever, Chills, Chest Pain, Dizziness Recent travel outside of the [place]: No Past Medical History Reviewed: Historical Data, Nursing Documentation, Vital Signs Vital Signs: Last Vital Signs Temp 97.7 F 09/18/16 13:58 Pulse 87 09/18/16 16:07 Resp 20 09/18/16 16:07 BP 166/88 H 09/18/16 16:07 Pulse Ox 93 L 09/18/16 16:07 - Medical History PMH: Anxiety, Arthritis, Asthma, Atrial Fibrillation, Back Problems (chronic back pain), CAD (CABG), CHF, COPD, Depression, Diabetes, Deep Vein Thrombosis, HTN, Hypercholesterolemia, Kidney Stones, End Stage Renal Disease, Chronic Kidney Disease, Rheumatoid Arthritis, Schizophrenia Surgical History: CABG (X4), Cholecystectomy, Coronary Stent - [facility] Procedures D & C NEC (06/07/13) DILATION OF LEFT URETER WITH INTRALUMINAL DEVICE, ENDO (05/12/15) EXCISION OF ASCENDING COLON, ENDO, DIAGN (04/23/16) HEMODIALYSIS (10/10/14) INSPECTION OF LOWER INTESTINAL TRACT, ENDO (04/23/16) LAPAROSCOP REMOVE OVARIES/TUBES (06/26/13) LAPAROSCOPIC RADICAL ABDOMINAL HYSTERECTOMY (06/26/13) LAPAROSCOPIC ROBOTIC ASSISTED PROCEDURE (06/26/13) LYMPHATIC STRUCT BIOPSY (06/26/13) OTHER ENDOSCOPY OF SM INTEST (07/27/14) PACKED CELL TRANSFUSION (06/07/13) PERFORMANCE OF URINARY FILTRATION, MULTIPLE (12/24/15) PERFORMANCE OF URINARY FILTRATION, SINGLE (09/08/16) TRANSFUSE NONAUT FROZEN PLASMA IN PERIPH VEIN, PERC (04/23/16) TRANSFUSE NONAUT WHOLE BLOOD IN PERIPH VEIN, PERC (04/23/16) VENOUS CATHETERIZATION NEC (06/07/13) Family History: States: Unknown Family Hx, Diabetes - Social History Hx Tobacco Use: Yes Hx Alcohol Use: Yes Hx Substance Use: Yes - Immunization History Hx Tetanus Toxoid Vaccination: No Hx Influenza Vaccination: No Hx Pneumococcal Vaccination: No Review Of Systems Constitutional: Negative for: Fever, Chills Cardiovascular: Negative for: Chest Pain Respiratory: Positive for: Cough, Shortness of Breath Gastrointestinal: Negative for: Nausea, Vomiting, Diarrhea Neurological: Negative for: Headache, Dizziness Past Patient History - Infectious Disease Hx of Infectious Diseases: None - Past Medical History & Family History Past Medical History?: Yes - Past Social History Smoking Status: Former Smoker - CARDIAC Hx Cardiac Disorders: Yes Hx Atrial Fibrillation: Yes Hx Congestive Heart Failure: Yes Hx Hypercholesterolemia: Yes Hx Hypertension: Yes - PULMONARY Hx Respiratory Disorders: Yes Hx Asthma: Yes Hx Chronic Obstructive Pulmonary Disease (COPD): Yes - NEUROLOGICAL Hx Neurological Disorder: No - HEENT Hx HEENT Problems: Yes Hx Blind: Yes (Pt claims her blindness started like end part of last year,only sees shadow) Hx Cataracts: Yes (had cataract surgery x 2) - RENAL Hx Chronic Kidney Disease: Yes Hx Dialysis: Yes Date of Last Dialysis Treatment: 09/18/16 - ENDOCRINE/METABOLIC Hx Endocrine Disorders: Yes Hx Diabetes Mellitus Type 1: Yes Hx Diabetes Mellitus Type 2: Yes - HEMATOLOGICAL/ONCOLOGICAL Hx Blood Disorders: Yes Hx Blood Transfusions: Yes Hx Blood Transfusion Reaction: No Hx Cancer: Yes (Uterine) - INTEGUMENTARY Hx Dermatological Problems: Yes Other/Comment: Pt has abdominal wound because of scratching. - MUSCULOSKELETAL/RHEUMATOLOGICAL Hx Musculoskeletal Disorders: Yes Hx Falls: Yes - GASTROINTESTINAL Hx Gastrointestinal Disorders: No - GENITOURINARY/GYNECOLOGICAL Hx Genitourinary Disorders: Yes Hx Uterine Cancer: Yes Other/Comment: Pt says she has endometrial cancer. - PSYCHIATRIC Hx Psychophysiologic Disorder: Yes Hx Substance Use: No Other/Comment: Hx Schizophrenia - SURGICAL HISTORY Hx Surgeries: Yes Hx Cholecystectomy: Yes Hx Coronary Artery Bypass Graft: Yes (X4) Hx Coronary Stent: Yes Other/Comment: ANNETTE HD access - ANESTHESIA Hx Anesthesia: Yes Hx Anesthesia Reactions: No Hx Malignant Hyperthermia: No Has any member of the family had a problem w/ anesthesia?: No Meds Allergies/Adverse Reactions: Allergies Allergy/AdvReac Type Severity Reaction Status Date / Time morphine Allergy RASH Verified 09/18/16 13:57 haloperidol [From Haldol] AdvReac Unknown Verified 09/18/16 13:57 haloperidol lactate AdvReac Unknown Verified 09/18/16 13:57 [From Haldol] - Medications Medications: Current Medications Acetaminophen (Tylenol 325mg Tab) 650 mg PO Q4H PRN PRN Reason: Temperature Acetaminophen/Codeine Phosphate (Tylenol/Codeine 300 Mg/30 Mg) 1 ea PO Q4 PRN PRN Reason: Pain, moderate (4-7) Last Admin: 09/19/16 18:51 Dose: 1 ea Alprazolam (Xanax) 0.5 mg PO TID PRN PRN Reason: Anxiety Last Admin: 09/19/16 18:51 Dose: 0.5 mg Ascorbic Acid (Vitamin C 500 Mg Tab) 500 mg PO DAILY [facility] Last Admin: 09/19/16 09:16 Dose: 500 mg Aspirin (Ecotrin) 81 mg PO DAILY [facility] Last Admin: 09/19/16 09:16 Dose: 81 mg Carvedilol (Coreg) 25 mg PO Q12H [facility] Last Admin: 09/19/16 18:50 Dose: 25 mg Clopidogrel Bisulfate (Plavix) 75 mg PO DAILY [facility] Last Admin: 09/19/16 09:16 Dose: 75 mg Epoetin Aj (Procrit) 10,000 unit IV MWF [facility] Stop: 09/23/16 09:01 Last Admin: 09/18/16 22:15 Dose: 10,000 unit Famotidine (Pepcid) 20 mg PO DAILY [facility] Last Admin: 09/19/16 09:16 Dose: 20 mg Guaifenesin/Dextromethorphan (Robitussin Dm) 10 ml PO Q6 PRN PRN Reason: Cough and congestion Last Admin: 09/19/16 21:47 Dose: 10 ml Heparin Sodium (Porcine) (Heparin) 5,000 units SC Q8 [facility] Last Admin: 09/19/16 21:47 Dose: 5,000 units Hydralazine HCl (Apresoline) 50 mg PO Q8H [facility] Last Admin: 09/19/16 18:50 Dose: 50 mg Piperacillin Sod/Tazobactam Sod (Zosyn 2.25 Gm Iv Premix) 2.25 gm in 50 mls @ 100 mls/hr IVPB Q8 [facility] Last Admin: 09/19/16 21:48 Dose: 100 mls/hr Insulin Aspart (Novolog) 0 unit SC ACHS [facility] PRN Reason: Protocol Last Admin: 09/19/16 22:45 Dose: Not Given Insulin Human Isoph/Insulin Regular (Novolin 70/30 (70/30 Units/Ml) 10 Ml) 20 units SC BIDCC [facility] Last Admin: 09/19/16 19:03 Dose: 20 units Paricalcitol (Zemplar) 2 mcg IV [facility] [place] Stop: 09/23/16 09:01 Last Admin: 09/18/16 22:15 Dose: 2 mcg Risperidone (Risperdal Tab) 1 mg PO HS [facility] Last Admin: 09/19/16 21:47 Dose: 1 mg Rosuvastatin Calcium (Crestor) 5 mg PO HS [facility] Last Admin: 09/19/16 21:47 Dose: 5 mg Sevelamer Carbonate (Renvela) 2.4 gm PO TIDCC [facility] Last Admin: 09/19/16 18:50 Dose: 2.4 gm Tamsulosin HCl (Flomax) 0.4 mg PO DAILY [facility] Last Admin: 09/19/16 09:16 Dose: 0.4 mg Trazodone HCl (Desyrel) 50 mg PO [facility] Last Admin: 09/19/16 21:47 Dose: 50 mg Vitamin B Complex/Vit C/Folic Acid (Nephro-Marielena) 1 tab PO DAILY [facility] Last Admin: 09/19/16 09:16 Dose: 1 tab Physical Exam - Neurological Exam Additional comments: Obese Mental Status: Awake, Alert, Oriented X 3 Fluent coherent speech Normal memory Cranial Nerves II to XII; no deficits Motor: Normal Tone, Reduced Power Peripherally in both UEs and LEs, Muscle Bulk is normal Proximally, reduced peripherally DTR o/4 Toes are down going Sensory: Pain as explained, but no deficits. Cerebellar: Normal FNT Results - Vital Signs Recent Vital Signs: Last Vital Signs Temp 98.5 F 09/19/16 18:50 Pulse 77 09/19/16 18:50 Resp 20 09/19/16 18:50 BP 138/70 09/19/16 18:50 Pulse Ox 92 L 09/19/16 18:50 - Labs Result Diagrams: 09/20/16 08:12 09/20/16 08:50 Labs: Laboratory Results - last 24 hr 09/19/16 09/19/16 09/19/16 11:59 14:04 20:00 Total Creatine Kinase 85 86 CK-MB (Mass) 1.70 1.54 Troponin I, Quant 0.0820 0.0790 Influenza Typ A,B (EIA) Negative for flu a/b Assessment & Plan (1) Altered mental status Assessment and Plan: R/O Seizures, R/O CVA Status: Acute (2) Dyspnea Status: Acute (3) ESRD needing dialysis Status: Chronic (4) Abdominal pain Status: Acute (5) Anemia Status: Acute (6) CVA (cerebral vascular accident) Assessment and Plan: CVA Vs TIA is to be Ruled Out. Status: Suspected (7) Seizures Assessment and Plan: Seizures are to be ruled out. Status: Acute (8) Peripheral motor neuropathy Assessment and Plan: This is related to her Renal Failure. Status: Acute
[2016-09-20] MEDS: Piperacill/Tazo 2.25gm in Dex 2.25 GM/50 ML BAG IVPB SCH ×3 (06:23→21:43)
[2016-09-20] MEDS: (Novolog) Insulin Aspart, Recombinant 100 u/ml 10 ml vial SC SCH ×4 (08:30→21:46)
[2016-09-20] MEDS: (Novolin 70/30) NPH/Regular 70/30 Units/ml 10 ml vial SC SCH ×2 (08:30→17:30)
[2016-09-20] MEDS: Sevelamer Carb 2.4 gm/Packet PO SCH ×3 (08:46→17:30)
[2016-09-20 08:56] LABS: BASO # 0.1 K/uL (0.0-0.2); BASO % 0.4 % (0.0-2.0); EOS # 0.2 K/uL (0.0-0.7); EOS % 1.7 % (0.0-4.0); HEMATOCRIT 27.5 % (34.0-47.0); LYMPH # 0.8 K/uL (1.0-4.3); LYMPH % 7.1 % (20.0-40.0); MEAN CELL VOLUME 95.6 fL (81.0-99.0); MEAN CORPUSCULAR HEMOGLOBIN 31.5 pg (27.0-31.0); MEAN PLATELET VOLUME 9.4 fL (7.2-11.7); MONO # 0.7 K/uL (0.0-0.8); MONO % 6.5 % (0.0-10.0); PLATELET COUNT 188 K/uL (130-400); RED CELL DISTRIBUTION WIDTH 15.1 % (11.5-14.5); WHITE BLOOD COUNT 11.5 K/uL (4.8-10.8)
[2016-09-20 09:04] LABS: POTASSIUM 4.2 mmol/L (3.6-5.2)
[2016-09-20 09:34] LABS: EOSINOPHIL 1 % (0-4); NEUTROPHIL 88 % (50-75); TOTAL CELLS COUNTED 100
[2016-09-20 09:35] LABS: LARGE PLATELETS PRESENT
[2016-09-20 09:36] LABS: GIANT PLATELETS PRESENT
[2016-09-20 10:05] LABS: ERYTHROCYTE SEDIMENTATION RATE 114 mm/hr (0-20)
[2016-09-20] MEDS: Multivitamin Vitamin B Complex (Nephro-Vite) Tab PO SCH (10:37)
[2016-09-20] MEDS: Azithromycin 500 MG in Sodium Chloride 0.9% 250 ML IVPB SCH (10:50)
--- NOTE | 2016-09-20 13:31 | PN ---
DATE: 09/20/2016 SUBJECTIVE: The patient is seen. The patient is still complaining of trouble sleeping and restlessn ess, but denies any hallucinations. The patient has been started on Risperdal 1 mg at bedtime as wel l as on Xanax 0.5 p.o. t.i.d. p.r.n. and trazodone 50 mg at bedtime. According to physical therapist , the patient was cooperative with physical therapy, but was noted to be desaturating. VITAL SIGNS: Temperature is 98.5, pulse rate 73, blood pressure is 111/69, respiration is 20, oxygen sat is 95%. REVIEW OF SYSTEMS: GENERAL: The patient is feeling weak, but oriented x 3, seen in her room. The patient wanted to eat . She says still feels weak and having trouble sleeping. SKIN: No diaphoresis. HEENT: No headache, no dizziness. NECK: Supple. RESPIRATORY: Has off and on dyspnea. CARDIOVASCULAR: No chest pain. GASTROINTESTINAL: Appetite is fair. EXTREMITIES: Gait unsteady. MUSCULOSKELETAL: Feels weak. NEUROLOGIC: Alert, oriented x 3. GENITOURINARY: No urinary problems. MENTAL STATUS EXAMINATION: Obese female, looks stated age, oriented x 3. Mood is anxious, somatic. Affect is reactive. Speech spontaneous. Thought process coherent. Thought content: No suicidal o r homicidal ideation. The patient is not complaining of visual hallucinations or paranoia today. St ill preoccupied about her sleeping pattern. Attention and memory seems to be fair. Insight and judg ment fair. Impulse control is fair. IMPRESSION: History of schizoaffective disorder, bipolar type, as well as metabolic encephalopathy s econdary to medical problems. PLAN AND RECOMMENDATIONS: The patient seen, meds reviewed. Continue present psych meds. Continue d ialysis as ordered. The patient also has been evaluated by Dr. Mtz for change of mental status. T rukhsana, her labs, her creatinine is 5.1, potassium is 4.2 and sodium is 135. Continue treatment plan a s outlined. Ab Vo MD cc: [id number] TT: 09/20/2016 13:31:37 Confirmation # [id number] Dictation # [id number]
--- NOTE | 2016-09-20 14:58 | CP.PCM.CON ---
History of Present Illness - History of Present Illness History of Present Illness: A 56 year old female presents to the emergency room with complaints of worsening shortness of breath for the last few days. Patient has dialysis today and last went on Wednesday. Patient notes a mild cough. Patient denies any fever , chills, chest pain, headaches, dizziness, nausea, vomiting, or any other complaints. REFERRED FOR id EVAL OF SEPSIS/ PNEUMONIA / RESP INFECTION NEURO CARDIO AND RENAL ON BOARD DISCUSSED WITH DR EDDY AND DR JADE - Medical History PMH: Anxiety, Arthritis, Asthma, Atrial Fibrillation, Back Problems (chronic back pain), CAD (CABG), CHF, COPD, Depression, Diabetes, Deep Vein Thrombosis, HTN, Hypercholesterolemia, Kidney Stones, End Stage Renal Disease, Chronic Kidney Disease, Rheumatoid Arthritis, Schizophrenia Surgical History: CABG (X4), Cholecystectomy, Coronary Stent Review of Systems - Constitutional Constitutional: As Per HPI, Anorexia, Fever, Malaise. absent: Weight Loss - EENT Eyes: absent: As Per HPI, Blind Spots, Blurred Vision, Change in Vision, Decreased Night Vision, Diplopia, Discharge, Dry Eye, Exophthalmos, Floaters, Irritation, Itchy Eyes, Loss of Peripheral Vision, Pain, Photophobia, Requires Corrective Lenses, Sees Flashes, Spots in Vision, Tunnel Vision, Other Visual Disturbances, Loss of Vision, Other Ears: absent: As Per HPI, Decreased Hearing, Ear Discharge, Ear Pain, Tinnitus, Abnormal Hearing, Disequilibrium, Dizziness, Other Nose/Mouth/Throat: absent: As Per HPI, Epistaxis, Nasal Congestion, Nasal Discharge, Nasal Obstruction, Nasal Trauma, Nose Pain, Post Nasal Drip, Sinus Pain, Sinus Pressure, Bleeding Gums, Change in Voice, Dental Pain, Dry Mouth, Dysphagia, Halitosis, Hoarsness, Lip Swelling, Mouth Lesions, Mouth Pain, Odynophagia, Sore Throat, Throat Swelling, Tongue Swelling, Facial Pain, Neck Pain, Neck Mass, Other - Breasts Breasts: absent: As Per HPI, Change in Shape, Mass, Pain, Nipple Discharge, Nipple Inversion, Skin Changes, Swelling, Other - Cardiovascular Cardiovascular: As Per HPI, Chest Pain - Respiratory Respiratory: As Per HPI, Cough, Dyspnea. absent: Hemoptysis - Gastrointestinal Gastrointestinal: absent: As Per HPI, Abdominal Pain, Belching, Bloating, Change in Bowel Habits, Change in Stool Character, Coffee Ground Emesis, Constipation, Cramping, Diarrhea, Dyspepsia, Dysphagia, Early Satiety, Excessive Flatus, Fecal Incontinence, Heartburn, Hematemesis, Hematochezia, Loose Stools, Melena, Nausea, Odynophagia, Temesmus, Vomiting, Other - Genitourinary Genitourinary: absent: As Per HPI, Change in Urinary Stream, Difficulty Urinating, Dysuria, Flank Pain, Hematuria, Pyuria, Nocturia, Urinary Incontinence, Urinary Frequency, Urinary Hesitance, Urinary Urgency, Voiding Freq/Small Amts, Freq UTI, Hx Renal/Bladder Calculi, Hx /Renal Surgery, Bladder Distension, Other - Reproductive: Female Reproductive:Female: absent: As Per HPI, Amenorrhea, Amenorrhea/ Control, Currently Menstual, Cycle <21 Days, Cycle >35 Days, Cycle Variable, Menses 1-7 Days, Menses >/= 8 Days, Menses Variable, Cycle > 4 Weeks Between, No Menses for 6 Months, Heavy Menses, Light Menses, Normal Menses, Spotting Between Cycles , S/P Hysterectomy, Menopausal, Post Menopausal, Premenarche, Abnormal Vaginal Bleeding, Dysmenorrhea, Dyspareunia, Genital Lesions, Genital Pruritis, Pelvic Pain, Prolapse Symptoms, Sexual Dysfunction, Vaginal Discharge, Vaginal Dryness , Vaginal Odor, Vaginal Pruritis, Other - Menstruation Menstruation: absent: As Per HPI, Amenorrhea, Amenorrhea/ Control, Currently Menstual, Cycle <21 Days, Cycle >35 Days, Cycle Variable, Menses 1-7 Days, Menses >/= 8 Days, Menses Variable, Cycle > 4 Weeks Between, No Menses for 6 Months, Heavy Menses, Light Menses, Normal Menses, Spotting Between Cycles , S/P Hysterectomy, Menopausal, Post Menopausal, Premenarche, Abnormal Vaginal Bleeding, Dysmenorrhea, Other - Musculoskeletal Musculoskeletal: absent: As Per HPI, Abnormal Gait, Arthralgias, Atrophy, Back Pain, Deformity, Joint Swelling, Limited Range of Motion, Loss of Height, Muscle Cramps, Muscle Weakness, Myalgias, Neck Pain, Numbness, Radiating Pain into Limb, Stiffness, Tingling, Other - Integumentary Integumentary: absent: As Per HPI, Acne, Alopecia, Bleeding Lesions, Change in Hair, Change in Nails, Change in Pigmentation, Changing Lesions, Dry Skin, Erythema, Furuncle, Hirsutism, Lesions, New Lesions, Non-Healing Lesions, Photosensitivity, Pruritus, Rash, Skin Pain, Skin Ulcer, Sores, Striae, Swelling , Unusual Bruising, Wounds, Jaundice, Other - Neurological Neurological: As Per HPI - Psychiatric Psychiatric: absent: As Per HPI, Abnormal Sleep Pattern, Anhedonia, Anxiety, Auditory Hallucinations, Behavioral Changes, Change in Appetite, Change in Libido, Confusion, Depression, Difficulty Concentrating, Hallucinations, Homicidal Ideation, Hopelessness, Irritability, Memory Loss, Mood Swings, Panic Attacks, Paranoia, Suicidal Ideation, Visual Hallucinations, Tactile Hallucinations, Other - Endocrine Endocrine: absent: As Per HPI, Change in Body Appearance, Change in Libido, Cold Intolorance, Deepening of Voice, Excessive Sweating, Fatigue, Flushing, Heat Intolorance, Increase in Ring/Shoe/Hat Size, Palpitations, Polydipsia, Polyphagia, Polyuria, Other - Hematologic/Lymphatic Hematologic: absent: As Per HPI, Easy Bleeding, Easy Bruising, Lymphadenopathy, Other Past Patient History - Infectious Disease Hx of Infectious Diseases: None - Past Medical History & Family History Past Medical History?: Yes - Past Social History Smoking Status: Former Smoker - CARDIAC Hx Cardiac Disorders: Yes Hx Atrial Fibrillation: Yes Hx Congestive Heart Failure: Yes Hx Hypercholesterolemia: Yes Hx Hypertension: Yes - PULMONARY Hx Respiratory Disorders: Yes Hx Asthma: Yes Hx Chronic Obstructive Pulmonary Disease (COPD): Yes - NEUROLOGICAL Hx Neurological Disorder: No - HEENT Hx HEENT Problems: Yes Hx Blind: Yes (Pt claims her blindness started like end part of last year,only sees shadow) Hx Cataracts: Yes (had cataract surgery x 2) - RENAL Hx Chronic Kidney Disease: Yes Hx Dialysis: Yes Date of Last Dialysis Treatment: 09/18/16 - ENDOCRINE/METABOLIC Hx Endocrine Disorders: Yes Hx Diabetes Mellitus Type 1: Yes Hx Diabetes Mellitus Type 2: Yes - HEMATOLOGICAL/ONCOLOGICAL Hx Blood Disorders: Yes Hx Blood Transfusions: Yes Hx Blood Transfusion Reaction: No Hx Cancer: Yes (Uterine) - INTEGUMENTARY Hx Dermatological Problems: Yes Other/Comment: Pt has abdominal wound because of scratching. - MUSCULOSKELETAL/RHEUMATOLOGICAL Hx Musculoskeletal Disorders: Yes Hx Falls: Yes - GASTROINTESTINAL Hx Gastrointestinal Disorders: No - GENITOURINARY/GYNECOLOGICAL Hx Genitourinary Disorders: Yes Hx Uterine Cancer: Yes Other/Comment: Pt says she has endometrial cancer. - PSYCHIATRIC Hx Psychophysiologic Disorder: Yes Hx Substance Use: No Other/Comment: Hx Schizophrenia - SURGICAL HISTORY Hx Surgeries: Yes Hx Cholecystectomy: Yes Hx Coronary Artery Bypass Graft: Yes (X4) Hx Coronary Stent: Yes Other/Comment: ANNETTE HD access - ANESTHESIA Hx Anesthesia: Yes Hx Anesthesia Reactions: No Hx Malignant Hyperthermia: No Has any member of the family had a problem w/ anesthesia?: No Meds Allergies/Adverse Reactions: Allergies Allergy/AdvReac Type Severity Reaction Status Date / Time morphine Allergy RASH Verified 09/18/16 13:57 haloperidol [From Haldol] AdvReac Unknown Verified 09/18/16 13:57 haloperidol lactate AdvReac Unknown Verified 09/18/16 13:57 [From Haldol] - Medications Medications: Current Medications Acetaminophen (Tylenol 325mg Tab) 650 mg PO Q4H PRN PRN Reason: Temperature Acetaminophen/Codeine Phosphate (Tylenol/Codeine 300 Mg/30 Mg) 1 ea PO Q4 PRN PRN Reason: Pain, moderate (4-7) Last Admin: 09/19/16 18:51 Dose: 1 ea Alprazolam (Xanax) 0.5 mg PO TID PRN PRN Reason: Anxiety Last Admin: 09/20/16 01:35 Dose: 0.5 mg Ascorbic Acid (Vitamin C 500 Mg Tab) 500 mg PO DAILY [facility] Last Admin: 09/20/16 10:37 Dose: 500 mg Aspirin (Ecotrin) 81 mg PO DAILY [facility] Last Admin: 09/20/16 10:37 Dose: 81 mg Carvedilol (Coreg) 25 mg PO Q12H [facility] Last Admin: 09/20/16 06:23 Dose: 25 mg Clopidogrel Bisulfate (Plavix) 75 mg PO DAILY [facility] Last Admin: 09/20/16 10:37 Dose: 75 mg Epoetin Aj (Procrit) 10,000 unit IV MWF [facility] Stop: 09/23/16 09:01 Last Admin: 09/18/16 22:15 Dose: 10,000 unit Famotidine (Pepcid) 20 mg PO DAILY [facility] Last Admin: 09/20/16 10:37 Dose: 20 mg Guaifenesin/Dextromethorphan (Robitussin Dm) 10 ml PO Q6 PRN PRN Reason: Cough and congestion Last Admin: 09/19/16 21:47 Dose: 10 ml Heparin Sodium (Porcine) (Heparin) 5,000 units SC Q8 [facility] Last Admin: 09/20/16 14:30 Dose: 5,000 units Hydralazine HCl (Apresoline) 50 mg PO Q8H [facility] Last Admin: 09/20/16 08:38 Dose: Not Given Piperacillin Sod/Tazobactam Sod (Zosyn 2.25 Gm Iv Premix) 2.25 gm in 50 mls @ 100 mls/hr IVPB Q8 [facility] Last Admin: 09/20/16 14:29 Dose: 100 mls/hr Azithromycin 500 mg/ Sodium (Chloride) 250 mls @ 250 mls/hr IVPB DAILY [facility] Last Admin: 09/20/16 10:50 Dose: 250 mls/hr Insulin Aspart (Novolog) 0 unit SC ACHS [facility] PRN Reason: Protocol Last Admin: 09/20/16 12:35 Dose: 3 unit Insulin Human Isoph/Insulin Regular (Novolin 70/30 (70/30 Units/Ml) 10 Ml) 20 units SC BIDCC [facility] Last Admin: 09/20/16 08:30 Dose: 20 units Paricalcitol (Zemplar) 2 mcg IV MWF [facility] Stop: 09/23/16 09:01 Last Admin: 09/18/16 22:15 Dose: 2 mcg Risperidone (Risperdal Tab) 1 mg PO HS [facility] Last Admin: 09/19/16 21:47 Dose: 1 mg Rosuvastatin Calcium (Crestor) 5 mg PO HS [facility] Last Admin: 09/19/16 21:47 Dose: 5 mg Sevelamer Carbonate (Renvela) 2.4 gm PO TIDCC [facility] Last Admin: 09/20/16 12:35 Dose: 2.4 gm Tamsulosin HCl (Flomax) 0.4 mg PO DAILY [facility] Last Admin: 09/20/16 10:38 Dose: 0.4 mg Trazodone HCl (Desyrel) 50 mg PO HS [facility] Last Admin: 09/19/16 21:47 Dose: 50 mg Vitamin B Complex/Vit C/Folic Acid (Nephro-Marielena) 1 tab PO DAILY [facility] Last Admin: 09/20/16 10:37 Dose: 1 tab Physical Exam - Constitutional Appears: Toxic, In Acute Distress - Head Exam Head Exam: ATRAUMATIC, NORMAL INSPECTION, NORMOCEPHALIC - Eye Exam Eye Exam: EOMI, PERRL. absent: Scleral icterus - ENT Exam ENT Exam: Mucous Membranes Dry, Normal External Ear Exam, Normal Oropharynx - Neck Exam Neck exam: Negative for: Lymphadenopathy, Thyromegaly - Respiratory Exam Respiratory Exam: Decreased Breath Sounds, Rhonchi, Wheezes - Cardiovascular Exam Cardiovascular Exam: Tachycardia, REGULAR RHYTHM, +S1, +S2 - GI/Abdominal Exam GI & Abdominal Exam: Diminished Bowel Sounds, Distended, Soft. absent: Guarding , Rebound, Rigid, Tenderness - Rectal Exam Rectal Exam: Deferred. absent: Black Stool - Exam Exam: NORMAL INSPECTION - Extremities Exam Extremities exam: Positive for: pedal pulses present. Negative for: calf tenderness, pedal edema, tenderness - Back Exam Back exam: absent: CVA tenderness (L), CVA tenderness (R), paraspinal tenderness - Neurological Exam Neurological exam: Alert, CN II-XII Intact, Oriented x3, Reflexes Normal - Psychiatric Exam Psychiatric exam: Normal Mood - Skin Skin Exam: Dry, Intact Results - Vital Signs Recent Vital Signs: Last Vital Signs Temp 98.5 F 09/20/16 12:41 Pulse 73 09/20/16 12:41 Resp 20 09/20/16 12:41 BP 111/69 09/20/16 12:41 Pulse Ox 95 09/20/16 12:41 - Labs Result Diagrams: 09/20/16 08:12 09/20/16 08:50 Labs: Laboratory Results - last 24 hr 09/19/16 09/20/16 09/20/16 20:00 08:12 08:12 WBC 11.5 H RBC 2.87 L Hgb 9.1 L Hct 27.5 L MCV 95.6 MCH 31.5 H MCHC 33.0 RDW 15.1 H Plt Count 188 MPV 9.4 Neut % (Auto) 84.3 H Lymph % (Auto) 7.1 L [place] % (Auto) 6.5 Eos % (Auto) 1.7 Baso % (Auto) 0.4 Neut # 9.7 H Lymph # 0.8 L [place] # 0.7 Eos # 0.2 Baso # 0.1 Neutrophils % (Manual) 88 H Band Neutrophils % 1 Lymphocytes % (Manual) 5 L Monocytes % (Manual) 5 Eosinophils % (Manual) 1 Platelet Estimate Normal Large Platelets Present Giant Platelets Present Polychromasia Slight Hypochromasia (manual) Slight Anisocytosis (manual) Slight ESR 114 H Sodium Potassium Chloride Carbon Dioxide Anion Gap BUN Creatinine Est GFR ( Amer) Est GFR (Non-Af Amer) Random Glucose Calcium Total Creatine Kinase 86 CK-MB (Mass) 1.54 Troponin I, Quant 0.0790 C-React Prot High Sens > 15.00 H 25-OH Vitamin D Total HIV 1&2 Antibody Screen 09/20/16 09/20/16 09/20/16 08:12 08:12 08:50 WBC RBC Hgb Hct MCV MCH MCHC RDW Plt Count MPV Neut % (Auto) Lymph % (Auto) [place] % (Auto) Eos % (Auto) Baso % (Auto) Neut # Lymph # [place] # Eos # Baso # Neutrophils % (Manual) Band Neutrophils % Lymphocytes % (Manual) Monocytes % (Manual) Eosinophils % (Manual) Platelet Estimate Large Platelets Giant Platelets Polychromasia Hypochromasia (manual) Anisocytosis (manual) ESR Sodium 135 Potassium 4.2 Chloride 93 L Carbon Dioxide 29 Anion Gap 18 BUN 39 H Creatinine 5.1 H Est GFR ( Amer) 11 Est GFR (Non-Af Amer) 9 Random Glucose 196 H Calcium 9.0 Total Creatine Kinase 73 CK-MB (Mass) 1.16 Troponin I, Quant 0.0590 C-React Prot High Sens 25-OH Vitamin D Total < 12.8 L HIV 1&2 Antibody Screen Negative Assessment & Plan (1) Altered mental status Status: Acute (2) CVA (cerebral vascular accident) Status: Suspected (3) Dyspnea Status: Acute (4) Seizures Status: Acute (5) ESRD needing dialysis Status: Chronic (6) Abdominal pain Status: Acute (7) Abrasion Status: Acute - Assessment and Plan (Free Text) Assessment: COMT IV ANTIBIOTICS AWAIT CULTURES
--- NOTE | 2016-09-20 16:08 | PN ---
DATE: 09/20/2016 The patient is experiencing mild shortness breath and dry cough. PHYSICAL EXAMINATION: VITAL SIGNS: Blood pressure 111/69, heart rate 73, temperature 98.5, respirations 20. HEENT: Pale conjunctivae. CHEST: Minimal rhonchi. HEART: S1, S2 regular. EXTREMITIES: No edema. LABORATORIES: [facility]: Sodium 135, potassium 4.2, chloride 93, CO2 29, glucose 196, BUN 39, creatinin e 5.1. All troponins are negative, a total of 4 of them. Hemoglobin and hematocrit 9.1 and 27.5, wh ite count and platelet count are 11.5 and 188,000. Yesterday's chest x-ray report: Diffuse increased interstitial lung markings throughout both lungs s uggestive of edema and/or infiltrate, cardiomegaly. ASSESSMENT: 1. Status post volume overload. 2. Coronary artery disease, status post coronary artery bypass surgery a few years ago. 3. Consider underlying pneumonia. 4. Paroxysmal atrial fibrillation. RECOMMENDATIONS: Continue hydralazine 50 mg q. 8 hours, IV Zithromax at 500 mg daily, Crestor at 5 m g once a day, aspirin 81 mg once a day, subcutaneous heparin 5000 units q. 8 hours, Plavix 75 mg once a day. The patient will receive Coumadin 5 mg today. Obtain INR in a.m. and the patient will under go hemodialysis tomorrow. Demar Stahl MD cc: [id number] TT: 09/20/2016 16:08:05 Confirmation # [id number] Dictation # [id number]
[2016-09-20 18:08] LABS: INR 1.1
[2016-09-20] MEDS: guaiFENesin DM 200 mg-20 mg/10 ml UD PO PRN (21:20)
--- NOTE | 2016-09-20 22:35 | CP.PCM.HP ---
History of Present Illness - History of Present Illness History of Present Illness: CHeif Compalin: chest pain, cough and confusional state HPI: A 56 year old female PMH of diabtes, morbid obesity, bipolar psycosisi, CAD , s/p CABG and re occulusion, complaint with meds, non complaint with diet and folow up presents to the emergency room with complaints of worsening shortness of breath for the last few days. Patient has dialysis today and last went on Wednesday. Patient notes a mild cough. Patient denies any fever, chills, chest pain, headaches, dizziness, nausea, vomiting, or any other complaints Present on Admission - Present on Admission Any Indicators Present on Admission: No Review of Systems - Review of Systems Systems not reviewed;Unavailable: Psychotic - Constitutional Constitutional: Fatigue, Lethargy - EENT Nose/Mouth/Throat: Nasal Congestion - Cardiovascular Cardiovascular: Chest Pain - Respiratory Respiratory: Cough, Dyspnea - Gastrointestinal Gastrointestinal: absent: As Per HPI, Abdominal Pain, Belching, Bloating, Change in Bowel Habits, Change in Stool Character, Coffee Ground Emesis, Constipation, Cramping, Diarrhea, Dyspepsia, Dysphagia, Early Satiety, Excessive Flatus, Fecal Incontinence, Heartburn, Hematemesis, Hematochezia, Loose Stools, Melena, Nausea, Odynophagia, Temesmus, Vomiting, Other - Genitourinary Genitourinary: absent: As Per HPI, Change in Urinary Stream, Difficulty Urinating, Dysuria, Flank Pain, Hematuria, Pyuria, Nocturia, Urinary Incontinence, Urinary Frequency, Urinary Hesitance, Urinary Urgency, Voiding Freq/Small Amts, Freq UTI, Hx Renal/Bladder Calculi, Hx /Renal Surgery, Bladder Distension, Other - Integumentary Integumentary: absent: As Per HPI, Acne, Alopecia, Bleeding Lesions, Change in Hair, Change in Nails, Change in Pigmentation, Changing Lesions, Dry Skin, Erythema, Furuncle, Hirsutism, Lesions, New Lesions, Non-Healing Lesions, Photosensitivity, Pruritus, Rash, Skin Pain, Skin Ulcer, Sores, Striae, Swelling , Unusual Bruising, Wounds, Jaundice, Other - Neurological Neurological: Confusion - Psychiatric Psychiatric: Confusion, Depression Past Patient History - Infectious Disease Hx of Infectious Diseases: None - Past Medical History & Family History Past Medical History?: Yes - Past Social History Smoking Status: Former Smoker - CARDIAC Hx Cardiac Disorders: Yes Hx Congestive Heart Failure: Yes Hx Hypercholesterolemia: Yes Hx Hypertension: Yes - PULMONARY Hx Chronic Obstructive Pulmonary Disease (COPD): Yes - NEUROLOGICAL Hx Neurological Disorder: No - HEENT Hx HEENT Problems: Yes Hx Blind: Yes (Pt claims her blindness started like end part of last year,only sees shadow) Hx Cataracts: Yes (had cataract surgery x 2) - RENAL Hx Chronic Kidney Disease: Yes Hx Dialysis: Yes Date of Last Dialysis Treatment: 09/18/16 - ENDOCRINE/METABOLIC Hx Diabetes Mellitus Type 1: Yes Hx Diabetes Mellitus Type 2: Yes - HEMATOLOGICAL/ONCOLOGICAL Hx Blood Disorders: Yes Hx Blood Transfusions: Yes Hx Blood Transfusion Reaction: No Hx Cancer: Yes (Uterine) - INTEGUMENTARY Hx Dermatological Problems: Yes Other/Comment: Pt has abdominal wound because of scratching. - MUSCULOSKELETAL/RHEUMATOLOGICAL Hx Musculoskeletal Disorders: Yes Hx Falls: Yes - GASTROINTESTINAL Hx Gastrointestinal Disorders: No - GENITOURINARY/GYNECOLOGICAL Hx Genitourinary Disorders: Yes Hx Uterine Cancer: Yes Other/Comment: Pt says she has endometrial cancer. - PSYCHIATRIC Hx Psychophysiologic Disorder: Yes Hx Substance Use: No Other/Comment: Hx Schizophrenia - SURGICAL HISTORY Hx Surgeries: Yes Hx Cholecystectomy: Yes Hx Coronary Artery Bypass Graft: Yes (X4) Hx Coronary Stent: Yes Other/Comment: ANNETTE HD access - ANESTHESIA Hx Anesthesia: Yes Hx Anesthesia Reactions: No Hx Malignant Hyperthermia: No Has any member of the family had a problem w/ anesthesia?: No Meds Home Medications: Home Medication List Medication Instructions Recorded Confirmed Type Amoxicillin/Clavulanate [Augmentin 1 tab PO BID #10 tab 09/23/16 Rx 875 MG-125 MG Tab] Ergocalciferol [Drisdol 50,000 1 cap PO Q7D #10 cap 09/23/16 Rx Intl Units Cap] risperiDONE [RisperDAL Tab] 1 mg PO HS #30 tab 09/23/16 Rx Allergies/Adverse Reactions: Allergies Allergy/AdvReac Type Severity Reaction Status Date / Time morphine Allergy RASH Verified 09/18/16 13:57 haloperidol [From Haldol] AdvReac Unknown Verified 09/18/16 13:57 haloperidol lactate AdvReac Unknown Verified 09/18/16 13:57 [From Haldol] Physical Exam - Constitutional Appears: Well - Head Exam Head Exam: ATRAUMATIC, NORMAL INSPECTION, NORMOCEPHALIC - Eye Exam Eye Exam: EOMI, Normal appearance, PERRL Pupil Exam: NORMAL ACCOMODATION, PERRL Additional comments: dec visual acuity - ENT Exam ENT Exam: Mucous Membranes Moist - Neck Exam Neck exam: Positive for: Normal Inspection - Respiratory Exam Respiratory Exam: Clear to Auscultation Bilateral, NORMAL BREATHING PATTERN - Cardiovascular Exam Cardiovascular Exam: REGULAR RHYTHM Additional comments: s3 positive - GI/Abdominal Exam GI & Abdominal Exam: Normal Bowel Sounds, Soft. absent: Tenderness - Psychiatric Exam Psychiatric exam: Normal Affect, Normal Mood Results - Vital Signs Recent Vital Signs: Last Vital Signs Temp 97.5 F L 09/20/16 16:41 Pulse 71 09/20/16 16:41 Resp 20 09/20/16 16:41 BP 142/76 09/20/16 17:30 Pulse Ox 95 09/20/16 16:41 - Labs Result Diagrams: 09/21/16 09:55 09/21/16 06:54 Labs: Laboratory Results - last 24 hr 09/20/16 09/20/16 09/20/16 08:12 08:12 08:12 WBC 11.5 H RBC 2.87 L Hgb 9.1 L Hct 27.5 L MCV 95.6 MCH 31.5 H MCHC 33.0 RDW 15.1 H Plt Count 188 MPV 9.4 Neut % (Auto) 84.3 H Lymph % (Auto) 7.1 L [place] % (Auto) 6.5 Eos % (Auto) 1.7 Baso % (Auto) 0.4 Neut # 9.7 H Lymph # 0.8 L [place] # 0.7 Eos # 0.2 Baso # 0.1 Neutrophils % (Manual) 88 H Band Neutrophils % 1 Lymphocytes % (Manual) 5 L Monocytes % (Manual) 5 Eosinophils % (Manual) 1 Platelet Estimate Normal Large Platelets Present Giant Platelets Present Polychromasia Slight Hypochromasia (manual) Slight Anisocytosis (manual) Slight ESR 114 H PT INR Sodium Potassium Chloride Carbon Dioxide Anion Gap BUN Creatinine Est GFR ( Amer) Est GFR (Non-Af Amer) Random Glucose Calcium Total Creatine Kinase CK-MB (Mass) Troponin I, Quant C-React Prot High Sens > 15.00 H 25-OH Vitamin D Total Procalcitonin Rheum Arthritis Panel Negative HIV 1&2 Antibody Screen 09/20/16 09/20/16 09/20/16 08:12 08:12 08:50 WBC RBC Hgb Hct MCV MCH MCHC RDW Plt Count MPV Neut % (Auto) Lymph % (Auto) [place] % (Auto) Eos % (Auto) Baso % (Auto) Neut # Lymph # [place] # Eos # Baso # Neutrophils % (Manual) Band Neutrophils % Lymphocytes % (Manual) Monocytes % (Manual) Eosinophils % (Manual) Platelet Estimate Large Platelets Giant Platelets Polychromasia Hypochromasia (manual) Anisocytosis (manual) ESR PT INR Sodium 135 Potassium 4.2 Chloride 93 L Carbon Dioxide 29 Anion Gap 18 BUN 39 H Creatinine 5.1 H Est GFR ( Amer) 11 Est GFR (Non-Af Amer) 9 Random Glucose 196 H Calcium 9.0 Total Creatine Kinase 73 CK-MB (Mass) 1.16 Troponin I, Quant 0.0590 C-React Prot High Sens 25-OH Vitamin D Total < 12.8 L Procalcitonin Rheum Arthritis Panel HIV 1&2 Antibody Screen Negative 09/20/16 09/20/16 17:25 17:53 WBC RBC Hgb Hct MCV MCH MCHC RDW Plt Count MPV Neut % (Auto) Lymph % (Auto) [place] % (Auto) Eos % (Auto) Baso % (Auto) Neut # Lymph # [place] # Eos # Baso # Neutrophils % (Manual) Band Neutrophils % Lymphocytes % (Manual) Monocytes % (Manual) Eosinophils % (Manual) Platelet Estimate Large Platelets Giant Platelets Polychromasia Hypochromasia (manual) Anisocytosis (manual) ESR PT 12.0 INR 1.1 Sodium Potassium Chloride Carbon Dioxide Anion Gap BUN Creatinine Est GFR ( Amer) Est GFR (Non-Af Amer) Random Glucose Calcium Total Creatine Kinase CK-MB (Mass) Troponin I, Quant C-React Prot High Sens 25-OH Vitamin D Total Procalcitonin 0.85 H Rheum Arthritis Panel HIV 1&2 Antibody Screen Assessment & Plan (1) Pneumonia Status: Acute (2) Altered mental status Status: Acute (3) Dyspnea Status: Acute (4) ESRD needing dialysis Status: Chronic (5) Chest pain Assessment and Plan: rule out AR Status: Acute
--- NOTE | 2016-09-20 22:41 | CP.PCM.PN ---
Subjective - Date & Time of Evaluation Date of Evaluation: 09/20/16 Time of Evaluation: 07:35 - Subjective Subjective: seen and examined, on Iv antibiotics awaiting cultures Objective - Vital Signs/Intake and Output Vital Signs (last 24 hours): Temp Pulse Resp BP Pulse Ox 97.5 F L 71 20 142/76 95 09/20/16 16:41 09/20/16 16:41 09/20/16 16:41 09/20/16 17:30 09/20/16 16:41 Intake and Output: 09/20/16 09/21/16 18:59 06:59 Intake Total 400 Balance 400 - Medications Medications: Current Medications Acetaminophen (Tylenol 325mg Tab) 650 mg PO Q4H PRN PRN Reason: Temperature > 100.4 F Acetaminophen/Codeine Phosphate (Tylenol/Codeine 300 Mg/30 Mg) 1 ea PO Q4 PRN PRN Reason: Pain, moderate (4-7) Last Admin: 09/19/16 18:51 Dose: 1 ea Alprazolam (Xanax) 0.5 mg PO TID PRN PRN Reason: Anxiety Last Admin: 09/20/16 01:35 Dose: 0.5 mg Ascorbic Acid (Vitamin C 500 Mg Tab) 500 mg PO DAILY [facility] Last Admin: 09/20/16 10:37 Dose: 500 mg Aspirin (Ecotrin) 81 mg PO DAILY [facility] Last Admin: 09/20/16 10:37 Dose: 81 mg Carvedilol (Coreg) 25 mg PO Q12H [facility] Last Admin: 09/20/16 17:30 Dose: 25 mg Clopidogrel Bisulfate (Plavix) 75 mg PO DAILY [facility] Last Admin: 09/20/16 10:37 Dose: 75 mg Epoetin Aj (Procrit) 10,000 unit IV MWF [facility] Stop: 09/23/16 09:01 Last Admin: 09/18/16 22:15 Dose: 10,000 unit Famotidine (Pepcid) 20 mg PO DAILY [facility] Last Admin: 09/20/16 10:37 Dose: 20 mg Guaifenesin/Dextromethorphan (Robitussin Dm) 10 ml PO Q6 PRN PRN Reason: Cough and congestion Last Admin: 09/20/16 21:20 Dose: 10 ml Heparin Sodium (Porcine) (Heparin) 5,000 units SC Q8 [facility] Last Admin: 09/20/16 21:20 Dose: 5,000 units Hydralazine HCl (Apresoline) 50 mg PO Q8H [facility] Last Admin: 09/20/16 17:30 Dose: 50 mg Piperacillin Sod/Tazobactam Sod (Zosyn 2.25 Gm Iv Premix) 2.25 gm in 50 mls @ 100 mls/hr IVPB Q8 [facility] Last Admin: 09/20/16 21:43 Dose: 100 mls/hr Azithromycin 500 mg/ Sodium (Chloride) 250 mls @ 250 mls/hr IVPB DAILY [facility] Last Admin: 09/20/16 10:50 Dose: 250 mls/hr Insulin Aspart (Novolog) 0 unit SC ACHS [facility] PRN Reason: Protocol Last Admin: 09/20/16 21:46 Dose: Not Given Insulin Human Isoph/Insulin Regular (Novolin 70/30 (70/30 Units/Ml) 10 Ml) 20 units SC BIDCC [facility] Last Admin: 09/20/16 17:30 Dose: 20 units Paricalcitol (Zemplar) 2 mcg IV MWF [facility] Stop: 09/23/16 09:01 Last Admin: 09/18/16 22:15 Dose: 2 mcg Risperidone (Risperdal Tab) 1 mg PO HS [facility] Last Admin: 09/20/16 21:20 Dose: 1 mg Rosuvastatin Calcium (Crestor) 5 mg PO HS [facility] Last Admin: 09/20/16 21:22 Dose: 5 mg Sevelamer Carbonate (Renvela) 2.4 gm PO TIDCC [facility] Last Admin: 09/20/16 17:30 Dose: 2.4 gm Tamsulosin HCl (Flomax) 0.4 mg PO DAILY [facility] Last Admin: 09/20/16 10:38 Dose: 0.4 mg Trazodone HCl (Desyrel) 50 mg PO HS [facility] Last Admin: 09/20/16 21:22 Dose: 50 mg Vitamin B Complex/Vit C/Folic Acid (Nephro-Marielena) 1 tab PO DAILY [facility] Last Admin: 09/20/16 10:37 Dose: 1 tab - Labs Labs: 09/20/16 08:12 09/20/16 08:50 PT 12.0 SECONDS (9.7-12.2) 09/20/16 17:53 INR 1.1 09/20/16 17:53 - Constitutional Appears: No Acute Distress - Head Exam Head Exam: ATRAUMATIC, NORMAL INSPECTION, NORMOCEPHALIC - Eye Exam Eye Exam: EOMI, Normal appearance, PERRL Pupil Exam: NORMAL ACCOMODATION, PERRL - ENT Exam ENT Exam: Mucous Membranes Moist, Normal Exam - Neck Exam Neck Exam: Full ROM, Normal Inspection. absent: Lymphadenopathy - Respiratory Exam Respiratory Exam: Clear to Ausculation Bilateral, NORMAL BREATHING PATTERN - Cardiovascular Exam Cardiovascular Exam: REGULAR RHYTHM, +S1, +S2. absent: Murmur - GI/Abdominal Exam GI & Abdominal Exam: Soft, Normal Bowel Sounds. absent: Tenderness Assessment and Plan (1) Pneumonia Status: Acute (2) Altered mental status Status: Acute (3) Dyspnea Status: Acute (4) ESRD needing dialysis Status: Chronic (5) Chest pain Status: Acute
--- NOTE | 2016-09-20 23:36 | CP.PCM.PN ---
Subjective - Date & Time of Evaluation Date of Evaluation: 09/20/16 Time of Evaluation: 11:35 - Subjective Subjective: No changes, Dr Cancino is considering it a possible infection. Studies to detect the infection and the Causes of Anemia are in progress. ESRD on Scheduled Hemodialysis Objective - Vital Signs/Intake and Output Vital Signs (last 24 hours): Temp Pulse Resp BP Pulse Ox 97.5 F L 71 20 142/76 95 09/20/16 16:41 09/20/16 16:41 09/20/16 16:41 09/20/16 17:30 09/20/16 16:41 Intake and Output: 09/20/16 09/21/16 18:59 06:59 Intake Total 400 300 Balance 400 300 - Medications Medications: Current Medications Acetaminophen (Tylenol 325mg Tab) 650 mg PO Q4H PRN PRN Reason: Temperature > 100.4 F Acetaminophen/Codeine Phosphate (Tylenol/Codeine 300 Mg/30 Mg) 1 ea PO Q4 PRN PRN Reason: Pain, moderate (4-7) Last Admin: 09/19/16 18:51 Dose: 1 ea Alprazolam (Xanax) 0.5 mg PO TID PRN PRN Reason: Anxiety Last Admin: 09/20/16 01:35 Dose: 0.5 mg Ascorbic Acid (Vitamin C 500 Mg Tab) 500 mg PO DAILY [facility] Last Admin: 09/20/16 10:37 Dose: 500 mg Aspirin (Ecotrin) 81 mg PO DAILY [facility] Last Admin: 09/20/16 10:37 Dose: 81 mg Carvedilol (Coreg) 25 mg PO Q12H [facility] Last Admin: 09/20/16 17:30 Dose: 25 mg Clopidogrel Bisulfate (Plavix) 75 mg PO DAILY [facility] Last Admin: 09/20/16 10:37 Dose: 75 mg Epoetin Aj (Procrit) 10,000 unit IV MWF [facility] Stop: 09/23/16 09:01 Last Admin: 09/18/16 22:15 Dose: 10,000 unit Famotidine (Pepcid) 20 mg PO DAILY [facility] Last Admin: 09/20/16 10:37 Dose: 20 mg Guaifenesin/Dextromethorphan (Robitussin Dm) 10 ml PO Q6 PRN PRN Reason: Cough and congestion Last Admin: 09/20/16 21:20 Dose: 10 ml Heparin Sodium (Porcine) (Heparin) 5,000 units SC Q8 [facility] Last Admin: 09/20/16 21:20 Dose: 5,000 units Hydralazine HCl (Apresoline) 50 mg PO Q8H [facility] Last Admin: 09/20/16 17:30 Dose: 50 mg Piperacillin Sod/Tazobactam Sod (Zosyn 2.25 Gm Iv Premix) 2.25 gm in 50 mls @ 100 mls/hr IVPB Q8 [facility] Last Admin: 09/20/16 21:43 Dose: 100 mls/hr Azithromycin 500 mg/ Sodium (Chloride) 250 mls @ 250 mls/hr IVPB DAILY [facility] Last Admin: 09/20/16 10:50 Dose: 250 mls/hr Insulin Aspart (Novolog) 0 unit SC ACHS [facility] PRN Reason: Protocol Last Admin: 09/20/16 21:46 Dose: Not Given Insulin Human Isoph/Insulin Regular (Novolin 70/30 (70/30 Units/Ml) 10 Ml) 20 units SC BIDCC [facility] Last Admin: 09/20/16 17:30 Dose: 20 units Paricalcitol (Zemplar) 2 mcg IV MWF [facility] Stop: 09/23/16 09:01 Last Admin: 09/18/16 22:15 Dose: 2 mcg Risperidone (Risperdal Tab) 1 mg PO HS [facility] Last Admin: 09/20/16 21:20 Dose: 1 mg Rosuvastatin Calcium (Crestor) 5 mg PO HS [facility] Last Admin: 09/20/16 21:22 Dose: 5 mg Sevelamer Carbonate (Renvela) 2.4 gm PO TIDCC [facility] Last Admin: 09/20/16 17:30 Dose: 2.4 gm Tamsulosin HCl (Flomax) 0.4 mg PO DAILY [facility] Last Admin: 09/20/16 10:38 Dose: 0.4 mg Trazodone HCl (Desyrel) 50 mg PO HS [facility] Last Admin: 09/20/16 21:22 Dose: 50 mg Vitamin B Complex/Vit C/Folic Acid (Nephro-Marielena) 1 tab PO DAILY [facility] Last Admin: 09/20/16 10:37 Dose: 1 tab - Labs Labs: 09/20/16 08:12 09/20/16 08:50 PT 12.0 SECONDS (9.7-12.2) 09/20/16 17:53 INR 1.1 09/20/16 17:53 Assessment and Plan (1) Altered mental status Status: Acute (2) Dyspnea Status: Acute (3) ESRD needing dialysis Status: Chronic (4) Abdominal pain Status: Acute (5) Anemia Status: Acute (6) CVA (cerebral vascular accident) Status: Suspected (7) Seizures Status: Acute
[2016-09-21] MEDS: Piperacill/Tazo 2.25gm in Dex 2.25 GM/50 ML BAG IVPB SCH ×3 (06:29→21:56)
[2016-09-21 07:17] LABS: POTASSIUM 4.8 mmol/L (3.6-5.2)
[2016-09-21 07:19] LABS: ALB/GLOB RATIO 1.3 (1.0-2.1)
[2016-09-21 07:20] LABS: CALCIUM 9.1 mg/dl (8.6-10.4)
[2016-09-21] MEDS: (Novolog) Insulin Aspart, Recombinant 100 u/ml 10 ml vial SC SCH ×4 (08:12→22:00)
[2016-09-21] MEDS: Sevelamer Carb 2.4 gm/Packet PO SCH ×4 (08:50→17:35)
[2016-09-21] MEDS: (Novolin 70/30) NPH/Regular 70/30 Units/ml 10 ml vial SC SCH ×2 (08:50→17:43)
[2016-09-21] MEDS: Acetaminophen-Codeine 300/30 mg Tab PO PRN ×2 (08:55→16:44)
[2016-09-21 10:14] LABS: BASO % 0.3 % (0.0-2.0); EOS # 0.2 K/uL (0.0-0.7); EOS % 1.7 % (0.0-4.0); HEMATOCRIT 27.7 % (34.0-47.0); LYMPH # 0.9 K/uL (1.0-4.3); LYMPH % 8.3 % (20.0-40.0); MEAN CELL VOLUME 97.4 fL (81.0-99.0); MEAN CORPUSCULAR HEMOGLOBIN 31.9 pg (27.0-31.0); MEAN CORPUSCULAR HGB CONC 32.7 g/dL (33.0-37.0); MEAN PLATELET VOLUME 10.3 fL (7.2-11.7); MONO # 0.6 K/uL (0.0-0.8); PLATELET COUNT 185 K/uL (130-400); RED CELL DISTRIBUTION WIDTH 15.8 % (11.5-14.5); WHITE BLOOD COUNT 10.8 K/uL (4.8-10.8)
--- NOTE | 2016-09-21 11:02 | CARD ---
APPROVED REPORT EKG Measurement Heart [id number] <Conclusion> Normal sinus rhythm Nonspecific ST abnormality Abnormal ECG
[2016-09-21 11:15] LABS: BASOPHIL 1 % (0-2); EOSINOPHIL 1 % (0-4); NEUTROPHIL 82 % (50-75); TOTAL CELLS COUNTED 100
[2016-09-21] MEDS: Epoetin Alfa 10,000 unit/ml Dialysis IV SCH (11:51)
[2016-09-21] MEDS: Paricalcitol 2 mcg/ml Inj IV SCH (11:52)
[2016-09-21] MEDS: Multivitamin Vitamin B Complex (Nephro-Vite) Tab PO SCH ×2 (12:19→14:09)
[2016-09-21] MEDS: Ergocalciferol 50,000 Intl Units Cap PO SCH ×3 (12:20→14:12)
[2016-09-21] MEDS: Azithromycin 500 MG in Sodium Chloride 0.9% 250 ML IVPB SCH (14:00)
--- NOTE | 2016-09-21 14:05 | CARD ---
APPROVED REPORT EKG Measurement Heart [id number] MI [id number] <Conclusion> Poor data quality, interpretation may be adversely affected Normal sinus rhythm Nonspecific ST and T wave abnormality Abnormal ECG
--- NOTE | 2016-09-21 14:17 | PN ---
DATE: 09/21/2016 SUBJECTIVE: The patient is seen. The patient was seen in dialysis room. She is doing much better, still anxious, but clinically much improved. She has been cooperative with dialysis. She said she i s sleeping better. VITAL SIGNS: Temperature is 98, pulse rate is 75, blood pressure is 119/42, respiration is 16 and ox ygen saturation is 98%. REVIEW OF SYSTEMS: GENERAL: The patient is alert, oriented x 3, seen in dialysis room, pleasant. SKIN: No diaphoresis. HEENT: No headache or dizziness. NECK: Supple. RESPIRATORY: No dyspnea. CARDIOVASCULAR: No chest pain. GASTROINTESTINAL: No nausea, no vomiting. EXTREMITIES: The patient moving extremities. GENITOURINARY: No urinary problems. NEUROLOGIC: Alert, oriented x 3. MENTAL STATUS EXAMINATION: Obese female who looks stated age, oriented x 3. Mood is much calmer, al though she still has off and on bouts of anxiety, but has been taking Xanax. Affect is reactive. Sp eech spontaneous. Thought process coherent. Thought content: No psychosis. Reports no recurrence of visual hallucinations where she was seeing demons. Attention and memory is fair. Insight and kika gment fair. Impulse control is fair. As stated, the patient has no suicidal or homicidal ideation. IMPRESSION: History of schizoaffective disorder, bipolar type, as well as history of mood disorder s econdary to medical problems, end-stage renal disease on dialysis, metabolic encephalopathy, improvin g. PLAN AND RECOMMENDATIONS: The patient seen, meds reviewed. Continue present management. Continue p resent psych meds. The patient is currently taking the following psych meds: Risperdal 1 mg at bedt edison as well as trazodone 50 at bedtime and Xanax 0.5 mg p.o. t.i.d. p.r.n. which she has been asking. LABORATORIES: On review, the patient's blood sugar is 199, creatinine is 6.7. She has been compliant so far with her dialysis. Ab Vo MD cc: [id number] TT: 09/21/2016 14:17:15 Confirmation # [id number] Dictation # [id number]
--- NOTE | 2016-09-21 18:49 | PN ---
DATE: 09/21/2016 The patient is a cheerful mood today. She underwent hemodialysis. She denies any chest pain. Short ness of breath has improved. PHYSICAL EXAMINATION: VITAL SIGNS: Blood pressure 139/80, heart rate 80, temperature 97.5, respirations 20. HEENT: Pale conjunctivae. CHEST: Minimal basal rhonchi. HEART: S1, S2 regular. EXTREMITIES: No edema. LABORATORIES: Hemoglobin and hematocrit 9.1 and 27.7, white count and platelet count are within norm al limits. Today's BUN and creatinine 58 and 6.7. Glucose 139. ASSESSMENT: 1. Status post volume overload. 2. End-stage renal disease on hemodialysis. 3. Chest pain, myocardial infarction was ruled out. 4. History of paroxysmal atrial fibrillation. RECOMMENDATIONS: Continue current hydralazine 50 mg q. 8 hours, Coreg 25 mg twice a day, Zithromax 5 00 mg intravenously daily, aspirin 81 mg once a day, subcutaneous 5000 units q. 8 hours, Plavix 75 m g once a day, Zosyn 2.25 g intravenously q. 8 hours. I will order Coumadin 5 mg p.o. today. Demar Stahl MD cc: [id number] TT: 09/21/2016 18:48:11 Confirmation # [id number] Dictation # [id number] jn
--- NOTE | 2016-09-21 18:53 | CP.PCM.PN ---
Subjective - Date & Time of Evaluation Date of Evaluation: 09/21/16 Time of Evaluation: 18:53 - Subjective Subjective: pt seen and examined, follow up consult is dictated #[id number] stable hd tx, uf 4.3 lit Objective - Vital Signs/Intake and Output Vital Signs (last 24 hours): Temp Pulse Resp BP Pulse Ox 97.5 F L 80 20 139/80 96 09/21/16 17:52 09/21/16 17:52 09/21/16 17:52 09/21/16 17:52 09/21/16 17:52 Intake and Output: 09/21/16 09/21/16 06:59 18:59 Intake Total 300 300 Balance 300 300 - Medications Medications: Current Medications Acetaminophen (Tylenol 325mg Tab) 650 mg PO Q4H PRN PRN Reason: Temperature > 100.4 F Acetaminophen/Codeine Phosphate (Tylenol/Codeine 300 Mg/30 Mg) 1 ea PO Q4 PRN PRN Reason: Pain, moderate (4-7) Last Admin: 09/21/16 16:44 Dose: 1 ea Alprazolam (Xanax) 0.5 mg PO TID PRN PRN Reason: Anxiety Last Admin: 09/21/16 00:08 Dose: 0.5 mg Ascorbic Acid (Vitamin C 500 Mg Tab) 500 mg PO DAILY [facility] Last Admin: 09/21/16 12:18 Dose: Not Given Aspirin (Ecotrin) 81 mg PO DAILY [facility] Last Admin: 09/21/16 14:09 Dose: 81 mg Carvedilol (Coreg) 25 mg PO Q12H [facility] Last Admin: 09/21/16 17:40 Dose: 25 mg Clopidogrel Bisulfate (Plavix) 75 mg PO DAILY [facility] Last Admin: 09/21/16 14:07 Dose: 75 mg Epoetin Aj (Procrit) 10,000 unit IV MWF [facility] Stop: 09/23/16 09:01 Last Admin: 09/21/16 11:51 Dose: 10,000 unit Ergocalciferol (Drisdol 50,000 Intl Units Cap) 1 cap PO Q7D [facility] Last Admin: 09/21/16 14:12 Dose: 1 cap Famotidine (Pepcid) 20 mg PO DAILY [facility] Last Admin: 09/21/16 14:09 Dose: 20 mg Guaifenesin/Dextromethorphan (Robitussin Dm) 10 ml PO Q6 PRN PRN Reason: Cough and congestion Last Admin: 09/20/16 21:20 Dose: 10 ml Heparin Sodium (Porcine) (Heparin) 5,000 units SC Q8 [facility] Last Admin: 09/21/16 14:09 Dose: 5,000 units Hydralazine HCl (Apresoline) 50 mg PO Q8H [facility] Last Admin: 09/21/16 17:35 Dose: 50 mg Piperacillin Sod/Tazobactam Sod (Zosyn 2.25 Gm Iv Premix) 2.25 gm in 50 mls @ 100 mls/hr IVPB Q8 [facility] Last Admin: 09/21/16 13:59 Dose: 100 mls/hr Azithromycin 500 mg/ Sodium (Chloride) 250 mls @ 250 mls/hr IVPB DAILY [facility] Last Admin: 09/21/16 14:00 Dose: 250 mls/hr Insulin Aspart (Novolog) 0 unit SC ACHS [facility] PRN Reason: Protocol Last Admin: 09/21/16 17:30 Dose: 2 unit Insulin Human Isoph/Insulin Regular (Novolin 70/30 (70/30 Units/Ml) 10 Ml) 20 units SC BIDCC [facility] Last Admin: 09/21/16 17:43 Dose: 20 units Paricalcitol (Zemplar) 2 mcg IV MWF [facility] Stop: 09/23/16 09:01 Last Admin: 09/21/16 11:52 Dose: 2 mcg Risperidone (Risperdal Tab) 1 mg PO HS [facility] Last Admin: 09/20/16 21:20 Dose: 1 mg Rosuvastatin Calcium (Crestor) 5 mg PO HS [facility] Last Admin: 09/20/16 21:22 Dose: 5 mg Sevelamer Carbonate (Renvela) 2.4 gm PO TIDCC [facility] Last Admin: 09/21/16 17:35 Dose: 2.4 gm Tamsulosin HCl (Flomax) 0.4 mg PO DAILY [facility] Last Admin: 09/21/16 14:09 Dose: 0.4 mg Trazodone HCl (Desyrel) 50 mg PO HS [facility] Last Admin: 09/20/16 21:22 Dose: 50 mg Vitamin B Complex/Vit C/Folic Acid (Nephro-Marielena) 1 tab PO DAILY [facility] Last Admin: 09/21/16 14:09 Dose: 1 tab - Labs Labs: 09/21/16 09:55 09/21/16 06:54 PT 11.7 SECONDS (9.7-12.2) 09/21/16 06:54 INR 1.0 09/21/16 06:54
--- NOTE | 2016-09-21 23:12 | CP.PCM.PN ---
Subjective - Date & Time of Evaluation Date of Evaluation: 09/21/16 Time of Evaluation: 07:36 - Subjective Subjective: Pt seen & examined, No changes, Dr Cancino is considering it a possible infection. Studies to detect the infection o the Causes of Anemia are in progress. ESRD on Scheduled Hemodialysis Objective - Vital Signs/Intake and Output Vital Signs (last 24 hours): Temp Pulse Resp BP Pulse Ox 97.5 F L 80 20 139/80 96 09/21/16 17:52 09/21/16 17:52 09/21/16 17:52 09/21/16 17:52 09/21/16 17:52 Intake and Output: 09/21/16 09/22/16 18:59 06:59 Intake Total 300 Balance 300 - Medications Medications: Current Medications Acetaminophen (Tylenol 325mg Tab) 650 mg PO Q4H PRN PRN Reason: Temperature > 100.4 F Acetaminophen/Codeine Phosphate (Tylenol/Codeine 300 Mg/30 Mg) 1 ea PO Q4 PRN PRN Reason: Pain, moderate (4-7) Last Admin: 09/21/16 16:44 Dose: 1 ea Alprazolam (Xanax) 0.5 mg PO TID PRN PRN Reason: Anxiety Last Admin: 09/21/16 00:08 Dose: 0.5 mg Ascorbic Acid (Vitamin C 500 Mg Tab) 500 mg PO DAILY [facility] Last Admin: 09/21/16 12:18 Dose: Not Given Aspirin (Ecotrin) 81 mg PO DAILY [facility] Last Admin: 09/21/16 14:09 Dose: 81 mg Carvedilol (Coreg) 25 mg PO Q12H [facility] Last Admin: 09/21/16 17:40 Dose: 25 mg Clopidogrel Bisulfate (Plavix) 75 mg PO DAILY [facility] Last Admin: 09/21/16 14:07 Dose: 75 mg Epoetin Aj (Procrit) 10,000 unit IV MWF [facility] Stop: 09/23/16 09:01 Last Admin: 09/21/16 11:51 Dose: 10,000 unit Ergocalciferol (Drisdol 50,000 Intl Units Cap) 1 cap PO Q7D [facility] Last Admin: 09/21/16 14:12 Dose: 1 cap Famotidine (Pepcid) 20 mg PO DAILY [facility] Last Admin: 09/21/16 14:09 Dose: 20 mg Guaifenesin/Dextromethorphan (Robitussin Dm) 10 ml PO Q6 PRN PRN Reason: Cough and congestion Last Admin: 09/20/16 21:20 Dose: 10 ml Heparin Sodium (Porcine) (Heparin) 5,000 units SC Q8 [facility] Last Admin: 09/21/16 21:55 Dose: 5,000 units Hydralazine HCl (Apresoline) 50 mg PO Q8H [facility] Last Admin: 09/21/16 17:35 Dose: 50 mg Piperacillin Sod/Tazobactam Sod (Zosyn 2.25 Gm Iv Premix) 2.25 gm in 50 mls @ 100 mls/hr IVPB Q8 [facility] Last Admin: 09/21/16 21:56 Dose: 100 mls/hr Azithromycin 500 mg/ Sodium (Chloride) 250 mls @ 250 mls/hr IVPB DAILY [facility] Last Admin: 09/21/16 14:00 Dose: 250 mls/hr Insulin Aspart (Novolog) 0 unit SC ACHS [facility] PRN Reason: Protocol Last Admin: 09/21/16 17:30 Dose: 2 unit Insulin Human Isoph/Insulin Regular (Novolin 70/30 (70/30 Units/Ml) 10 Ml) 20 units SC BIDCC [facility] Last Admin: 09/21/16 17:43 Dose: 20 units Paricalcitol (Zemplar) 2 mcg IV MWF [facility] Stop: 09/23/16 09:01 Last Admin: 09/21/16 11:52 Dose: 2 mcg Risperidone (Risperdal Tab) 1 mg PO [facility] Last Admin: 09/21/16 21:56 Dose: 1 mg Rosuvastatin Calcium (Crestor) 5 mg PO [facility] Last Admin: 09/21/16 21:56 Dose: 5 mg Sevelamer Carbonate (Renvela) 2.4 gm PO TIDCC [facility] Last Admin: 09/21/16 17:35 Dose: 2.4 gm Tamsulosin HCl (Flomax) 0.4 mg PO DAILY [facility] Last Admin: 09/21/16 14:09 Dose: 0.4 mg Trazodone HCl (Desyrel) 50 mg PO [facility] Last Admin: 09/21/16 21:56 Dose: 50 mg Vitamin B Complex/Vit C/Folic Acid (Nephro-Marielena) 1 tab PO DAILY [facility] Last Admin: 09/21/16 14:09 Dose: 1 tab - Labs Labs: 09/21/16 09:55 09/21/16 06:54 PT 11.7 SECONDS (9.7-12.2) 09/21/16 06:54 INR 1.0 09/21/16 06:54 - Constitutional Appears: No Acute Distress - Head Exam Head Exam: ATRAUMATIC, NORMAL INSPECTION, NORMOCEPHALIC - Eye Exam Eye Exam: EOMI, Normal appearance, PERRL Pupil Exam: NORMAL ACCOMODATION, PERRL - Respiratory Exam Respiratory Exam: Clear to Ausculation Bilateral, NORMAL BREATHING PATTERN - Cardiovascular Exam Cardiovascular Exam: REGULAR RHYTHM, +S1, +S2. absent: Murmur - GI/Abdominal Exam GI & Abdominal Exam: Soft, Normal Bowel Sounds. absent: Tenderness Assessment and Plan (1) Pneumonia Status: Acute (2) Altered mental status Status: Acute (3) Dyspnea Status: Acute (4) ESRD needing dialysis Status: Chronic (5) Chest pain Status: Acute
--- NOTE | 2016-09-22 01:14 | CP.PCM.PN ---
Subjective - Date & Time of Evaluation Date of Evaluation: 09/21/16 Time of Evaluation: 21:10 - Subjective Subjective: Patient is still undergoing tests for her infection and her anemia. Objective - Vital Signs/Intake and Output Vital Signs (last 24 hours): Temp Pulse Resp BP Pulse Ox 97.5 F L 80 20 139/80 96 09/21/16 17:52 09/21/16 17:52 09/21/16 17:52 09/21/16 17:52 09/21/16 17:52 Intake and Output: 09/21/16 09/22/16 18:59 06:59 Intake Total 300 Balance 300 - Medications Medications: Current Medications Acetaminophen (Tylenol 325mg Tab) 650 mg PO Q4H PRN PRN Reason: Temperature > 100.4 F Acetaminophen/Codeine Phosphate (Tylenol/Codeine 300 Mg/30 Mg) 1 ea PO Q4 PRN PRN Reason: Pain, moderate (4-7) Last Admin: 09/21/16 16:44 Dose: 1 ea Alprazolam (Xanax) 0.5 mg PO TID PRN PRN Reason: Anxiety Last Admin: 09/21/16 00:08 Dose: 0.5 mg Ascorbic Acid (Vitamin C 500 Mg Tab) 500 mg PO DAILY [facility] Last Admin: 09/21/16 12:18 Dose: Not Given Aspirin (Ecotrin) 81 mg PO DAILY [facility] Last Admin: 09/21/16 14:09 Dose: 81 mg Carvedilol (Coreg) 25 mg PO Q12H [facility] Last Admin: 09/21/16 17:40 Dose: 25 mg Clopidogrel Bisulfate (Plavix) 75 mg PO DAILY [facility] Last Admin: 09/21/16 14:07 Dose: 75 mg Epoetin Aj (Procrit) 10,000 unit IV MWF [facility] Stop: 09/23/16 09:01 Last Admin: 09/21/16 11:51 Dose: 10,000 unit Ergocalciferol (Drisdol 50,000 Intl Units Cap) 1 cap PO Q7D [facility] Last Admin: 09/21/16 14:12 Dose: 1 cap Famotidine (Pepcid) 20 mg PO DAILY [facility] Last Admin: 09/21/16 14:09 Dose: 20 mg Guaifenesin/Dextromethorphan (Robitussin Dm) 10 ml PO Q6 PRN PRN Reason: Cough and congestion Last Admin: 09/20/16 21:20 Dose: 10 ml Heparin Sodium (Porcine) (Heparin) 5,000 units SC Q8 [facility] Last Admin: 09/21/16 21:55 Dose: 5,000 units Hydralazine HCl (Apresoline) 50 mg PO Q8H [facility] Last Admin: 09/21/16 17:35 Dose: 50 mg Piperacillin Sod/Tazobactam Sod (Zosyn 2.25 Gm Iv Premix) 2.25 gm in 50 mls @ 100 mls/hr IVPB Q8 [facility] Last Admin: 09/21/16 21:56 Dose: 100 mls/hr Azithromycin 500 mg/ Sodium (Chloride) 250 mls @ 250 mls/hr IVPB DAILY [facility] Last Admin: 09/21/16 14:00 Dose: 250 mls/hr Insulin Aspart (Novolog) 0 unit SC ACHS [facility] PRN Reason: Protocol Last Admin: 09/21/16 22:00 Dose: Not Given Insulin Human Isoph/Insulin Regular (Novolin 70/30 (70/30 Units/Ml) 10 Ml) 20 units SC BIDCC [facility] Last Admin: 09/21/16 17:43 Dose: 20 units Paricalcitol (Zemplar) 2 mcg IV MWF [facility] Stop: 09/23/16 09:01 Last Admin: 09/21/16 11:52 Dose: 2 mcg Risperidone (Risperdal Tab) 1 mg PO HS [facility] Last Admin: 09/21/16 21:56 Dose: 1 mg Rosuvastatin Calcium (Crestor) 5 mg PO HS [facility] Last Admin: 09/21/16 21:56 Dose: 5 mg Sevelamer Carbonate (Renvela) 2.4 gm PO TIDCC [facility] Last Admin: 09/21/16 17:35 Dose: 2.4 gm Tamsulosin HCl (Flomax) 0.4 mg PO DAILY [facility] Last Admin: 09/21/16 14:09 Dose: 0.4 mg Trazodone HCl (Desyrel) 50 mg PO HS [facility] Last Admin: 09/21/16 21:56 Dose: 50 mg Vitamin B Complex/Vit C/Folic Acid (Nephro-Marielena) 1 tab PO DAILY [facility] Last Admin: 09/21/16 14:09 Dose: 1 tab - Labs Labs: 09/21/16 09:55 09/21/16 06:54 PT 11.7 SECONDS (9.7-12.2) 09/21/16 06:54 INR 1.0 09/21/16 06:54 Assessment and Plan (1) Altered mental status Status: Acute (2) Dyspnea Status: Acute (3) ESRD needing dialysis Status: Chronic (4) Abdominal pain Status: Acute (5) Anemia Status: Acute (6) CVA (cerebral vascular accident) Status: Suspected (7) Seizures Status: Acute
[2016-09-22 06:34] LABS: INR 1.1
[2016-09-22] MEDS: Piperacill/Tazo 2.25gm in Dex 2.25 GM/50 ML BAG IVPB SCH (06:55)
--- NOTE | 2016-09-22 07:03 | PN ---
DATE: 09/21/2016 LOCATION: The patient is located in room 663, bed A. REQUESTED BY: Dr. Bennett Talamantes. REASON FOR RENAL CONSULTATION: End-stage renal disease, continuation of the hemodialysis. HISTORY OF PRESENT ILLNESS: The patient is a 56-year-old obese female with a history of jas gstanding hypertension, diabetes, end-stage renal disease, coronary artery disease status post CABG, bipolar disorder and anxiety who was admitted with chief complaints of cough associated with yellow s putum and also shortness of breath and feeling anxious. The patient underwent hemodialysis last week , Wednesday, Wednesday, had ultrafiltration about 4 liters on each treatment. The patient underwent hemo dialysis today, had ultrafiltration about 4.3 liters. The patient still complains of cough associate d with sputum production, but, no fever. The patient also complains of chest discomfort when coughs. No nausea, vomiting or diarrhea. PHYSICAL EXAMINATION: VITAL SIGNS: As follows: Blood pressure 139/80, pulse 80, respirations 20, temperature 97.5, satura tion 96%, height 5 feet 6 inches and weight is 270 pounds. GENERAL: The patient is a 56-year-old elderly obese female, not in acute distress. HEENT: Pupils normal, reactive to light and accommodation. Conjunctivae pink. Sclerae anicteric. Tongue is moist. NECK: Trachea midline. LUNGS: Symmetric on both sides. Bilateral breath sounds present. No crackles. CARDIOVASCULAR: [place] in the fifth intercostal space midclavicular line. S1, S2 audible. The patien t has a midsternal scar present from the past CABG. No murmur, no gallop. ABDOMEN: Normal in appearance, soft, tympanic. No guarding, no rigidity. No hepatosplenomegaly. CENTRAL NERVOUS SYSTEM: The patient is alert, awake, oriented x 3, nonfocal on examination. Cranial nerves II-XII grossly intact. Sensory and motor system is within normal limits. EXTREMITIES: No cyanosis, no clubbing, no edema. CURRENT MEDICATIONS: Include as follows: Hydralazine 50 mg p.o. q. 8 hours, azithromycin 500 mg antonio ly, and Coreg 25 mg p.o. q. 12, Crestor 5 mg p.o. at bedtime, trazodone 50 mg p.o. at bedtime, ergoca lciferol 50,000 units 1 capsule p.o. daily, Ecotrin 81 mg daily, and Flomax 0.4 mg p.o. daily, Nephro -Marielena 1 tablet daily, Novolin 70/30, 20 units subQ b.i.d., NovoLog for sliding scale, Pepcid 20 mg da reed, Plavix 75 mg daily, Procrit 10,000 units 3 times a week, Wednesday, Wednesday, Wednesday and Renvela 2 .4 grams p.o. t.i.d., Risperdal 1 mg p.o. at bedtime, Robitussin-DM and also Tylenol 650 q. 4 hours p.r.n., Tylenol with codeine 1 tablet p.o. q. 4 hours p.r.n., vitamin C 500 mg daily, Xanax 0.5 mg p. o. t.i.d. 7.2 mcg 3 times a week, and Zosyn 2.25 grams q. 8 hours, Coumadin 5 mg at bedtime for parox ysmal atrial fibrillation. LABORATORY DATA: Include as follows: As of 09/21/2016, WBC 10.8, hemoglobin 9.1, hematocrit is 27.7 , platelets 185. PT 11.7, INR 1.0. Sodium 135, potassium 4.8, chloride 92, CO2 25, BUN 58, creatini ne 6.7, glucose 135, calcium 9.1, total bilirubin 1.0, AST 15, ALT 20, alkaline phosphatase is 74. T otal protein 7, albumin is 3.9. Procalcitonin is 0.85 as of 09/20 and blood culture x 2 negative day #2 and sputum cultures as of 09/21/2016, many epithelial cells, moderate gram-positive cocci and few Gram negative diplococci. Unable to process the specimen because of the Gram stain indicating oroph aryngeal contamination and repeat sputum cultures as of 09/20 few polymorphonuclear or WBCs, moderate gram-positive cocci in clusters, moderate gram-positive cocci in chains. SUMMARY: The patient is a 56-year-old obese female with hypertension, diabetes, coronary ar pardeep disease, bipolar disorder, anxiety, end-stage renal disease, who was admitted with cough, shortn ess of breath and chest discomfort. IMPRESSION AND PLAN: 1. End-stage renal disease. Continue hemodialysis 3 times a week, Wednesday, Wednesday and Wednesday. 2. Rule out pneumonia versus congestive heart failure. The patient underwent hemodialysis today, loving d ultrafiltration about 3 liters, repeat chest x-ray in the a.m. for followup. 3. Hypertension. Blood pressure is stable. Continue current medications, Coreg 25 mg p.o. q. 12 ho urs and hydralazine 50 mg q. 8 hours. Continue antibiotics. 4. Paroxysmal atrial fibrillation. Continue Coumadin 5 mg, follow up with PT. Thank you for allowing me to participate in your patient's care. Stable hemodialysis today. Sunil Ordoñez MD cc: [id number] TT: 09/22/2016 02:15:33 Confirmation # [id number] Dictation # [id number] tx
[2016-09-22 07:27] LABS: 18 KD (IGG) BAND Nonreactive; 23 KD (IGG) BAND Nonreactive; 23 KD (IGM) BAND Nonreactive; 28 KD (IGG) BAND Nonreactive; 30 KD (IGG) BAND Nonreactive; 39 KD (IGG) BAND Nonreactive; 39 KD (IGM) BAND Nonreactive; 41 KD (IGG) BAND Reactive; 41 KD (IGM) BAND Nonreactive; 45 KD (IGG) BAND Nonreactive; 58 KD (IGG) BAND Nonreactive; 66 KD (IGG) BAND Nonreactive; 93 KD (IGG) BAND Nonreactive; LYME DISEASE INTERP (IGG) Negative (Negative)
[2016-09-22] MEDS: (Novolog) Insulin Aspart, Recombinant 100 u/ml 10 ml vial SC SCH ×4 (08:13→22:35)
[2016-09-22] MEDS: Sevelamer Carb 2.4 gm/Packet PO SCH ×3 (08:21→17:25)
[2016-09-22] MEDS: (Novolin 70/30) NPH/Regular 70/30 Units/ml 10 ml vial SC SCH ×2 (08:22→18:37)
[2016-09-22] MEDS: Multivitamin Vitamin B Complex (Nephro-Vite) Tab PO SCH (09:35)
[2016-09-22] MEDS: Azithromycin 500 MG in Sodium Chloride 0.9% 250 ML IVPB SCH (09:37)
--- NOTE | 2016-09-22 10:23 | PN ---
DATE: 09/22/2016 SUBJECTIVE: The patient is seen. The patient states she is feeling better. She slept better and re ports no resurgence of hallucinations. She is being cooperative with staff, especially with med inta ke and care. She said she is doing well, offers no new complaints today. VITAL SIGNS: Temperature is 98.1, pulse rate is 69, blood pressure seems to be low 92/57, respiratio n is 20, oxygen sat is 94%, but not in acute respiratory distress. REVIEW OF SYSTEMS: GENERAL: The patient is alert and oriented x 3. She was seen in her room with the staff. She was r eceiving her morning meds. SKIN: No diaphoresis. HEENT: No headache, no dizziness. NECK: Supple. RESPIRATORY: No dyspnea. CARDIOVASCULAR: No chest pain. GASTROINTESTINAL: No nausea, no vomiting. She is eating better. EXTREMITIES: The patient is moving extremities. MUSCULOSKELETAL: Feels weak. NEUROLOGIC: Alert, oriented x 3. GENITOURINARY: No urinary problems, no dysuria. MENTAL STATUS EXAMINATION: Obese female who looks stated age, hospital gown, seems calm and cooperat emile, oriented x 3. Speech spontaneous. Affect is reactive. Mood is calmer. The patient states she feels better and she slept better last night. Thought process coherent. Thought content: No hallu cinations, no paranoia. No suicidal or homicidal ideation since she has resumed taking her Risperdal . Attention and memory seem to be fair. Insight and judgment fair. Impulse control is fair at this time. IMPRESSION: History of schizoaffective disorder, bipolar type as well as history of mood disorder, h istory of metabolic encephalopathy, improving. PLAN AND RECOMMENDATIONS: The patient seen, meds reviewed. The patient is doing well. Continue pre sent psych meds, Risperdal 1 mg at bedtime, trazodone 50 mg at bedtime and Xanax 0.5 mg p.o. t.i.d. p .r.n. Note that the patient is a dialysis patient. The patient is advised not to take too much Xana x as the half-life of Xanax will be prolonged, especially as the patient is a dialysis patient. Cont inue treatment plan as outlined. Ab Vo MD cc: [id number] TT: 09/22/2016 10:23:35 Confirmation # [id number] Dictation # [id number] en
--- NOTE | 2016-09-22 12:05 | CP.PCM.PN ---
Subjective - Date & Time of Evaluation Date of Evaluation: 09/22/16 Time of Evaluation: 07:00 - Subjective Subjective: cultures reviewed iv rx in progress Objective - Vital Signs/Intake and Output Vital Signs (last 24 hours): Temp Pulse Resp BP Pulse Ox 98.1 F 66 20 104/64 94 L 09/22/16 07:00 09/22/16 09:30 09/22/16 07:00 09/22/16 09:30 09/22/16 07:00 - Medications Medications: Current Medications Acetaminophen (Tylenol 325mg Tab) 650 mg PO Q4H PRN PRN Reason: Temperature > 100.4 F Acetaminophen/Codeine Phosphate (Tylenol/Codeine 300 Mg/30 Mg) 1 ea PO Q4 PRN PRN Reason: Pain, moderate (4-7) Last Admin: 09/21/16 16:44 Dose: 1 ea Alprazolam (Xanax) 0.5 mg PO TID PRN PRN Reason: Anxiety Last Admin: 09/21/16 00:08 Dose: 0.5 mg Ascorbic Acid (Vitamin C 500 Mg Tab) 500 mg PO DAILY [facility] Last Admin: 09/22/16 09:35 Dose: 500 mg Aspirin (Ecotrin) 81 mg PO DAILY [facility] Last Admin: 09/22/16 09:35 Dose: 81 mg Carvedilol (Coreg) 25 mg PO Q12H [facility] Last Admin: 09/22/16 06:55 Dose: 25 mg Clopidogrel Bisulfate (Plavix) 75 mg PO DAILY [facility] Last Admin: 09/22/16 09:35 Dose: 75 mg Epoetin Aj (Procrit) 10,000 unit IV MWF [facility] Stop: 09/23/16 09:01 Last Admin: 09/21/16 11:51 Dose: 10,000 unit Ergocalciferol (Drisdol 50,000 Intl Units Cap) 1 cap PO Q7D [facility] Last Admin: 09/21/16 14:12 Dose: 1 cap Famotidine (Pepcid) 20 mg PO DAILY [facility] Last Admin: 09/22/16 09:35 Dose: 20 mg Guaifenesin/Dextromethorphan (Robitussin Dm) 10 ml PO Q6 PRN PRN Reason: Cough and congestion Last Admin: 09/20/16 21:20 Dose: 10 ml Hydralazine HCl (Apresoline) 25 mg PO Q8H [facility] Piperacillin Sod/Tazobactam Sod (Zosyn 2.25 Gm Iv Premix) 2.25 gm in 50 mls @ 100 mls/hr IVPB Q8 [facility] Last Admin: 09/22/16 06:55 Dose: 100 mls/hr Azithromycin 500 mg/ Sodium (Chloride) 250 mls @ 250 mls/hr IVPB DAILY [facility] Last Admin: 09/22/16 09:37 Dose: 250 mls/hr Insulin Aspart (Novolog) 0 unit SC ACHS [facility] PRN Reason: Protocol Last Admin: 09/22/16 08:13 Dose: Not Given Insulin Human Isoph/Insulin Regular (Novolin 70/30 (70/30 Units/Ml) 10 Ml) 20 units SC BIDCC [facility] Last Admin: 09/22/16 08:22 Dose: 20 units Paricalcitol (Zemplar) 2 mcg IV MWF [facility] Stop: 09/23/16 09:01 Last Admin: 09/21/16 11:52 Dose: 2 mcg Risperidone (Risperdal Tab) [address] [facility] Last Admin: 09/21/16 21:56 Dose: 1 mg Rosuvastatin Calcium (Crestor) [address] [facility] Last Admin: 09/21/16 21:56 Dose: 5 mg Sevelamer Carbonate (Renvela) 2.4 gm PO TIDCC [facility] Last Admin: 09/22/16 08:21 Dose: 2.4 gm Tamsulosin HCl (Flomax) 0.4 mg PO DAILY [facility] Last Admin: 09/22/16 09:35 Dose: 0.4 mg Trazodone HCl (Desyrel) [address] [facility] Last Admin: 09/21/16 21:56 Dose: 50 mg Vitamin B Complex/Vit C/Folic Acid (Nephro-Marielena) 1 tab PO DAILY [facility] Last Admin: 09/22/16 09:35 Dose: 1 tab - Labs Labs: 09/21/16 09:55 09/21/16 06:54 PT 12.4 SECONDS (9.7-12.2) H 09/22/16 06:15 INR 1.1 09/22/16 06:15 Assessment and Plan (1) Altered mental status Status: Acute (2) CVA (cerebral vascular accident) Status: Suspected (3) Dyspnea Status: Acute (4) Seizures Status: Acute (5) ESRD needing dialysis Status: Chronic (6) Abdominal pain Status: Acute (7) Abrasion Status: Acute
--- NOTE | 2016-09-22 13:13 | PN ---
DATE: 09/22/2016 The patient's shortness of breath has improved. She denies any chest pain. PHYSICAL EXAMINATION: VITAL SIGNS: Blood pressure 108/69, heart rate 67, temperature 98.1, respiration 20. HEENT: Pale conjunctivae. CHEST: Minimal basal rhonchi. HEART: S1, S2 regular. EXTREMITIES: Trace leg edema. ASSESSMENT: 1. Exacerbation of congestive heart failure. 2. Status post volume overload. 3. End-stage renal disease on hemodialysis. 4. Chest pain. Myocardial infarction is ruled out. 5. Coronary artery disease status post coronary artery bypass surgery. 6. Consider underlying pneumonia. RECOMMENDATIONS: Continue hydralazine 25 mg q. 8 hours, IV Zithromax, and IV Zosyn. Continue aspiri n 81 mg once a day, Crestor at 5 mg once a day, Coreg 25 mg ____ a day. The patient will undergo hem odialysis tomorrow. Demar Stahl MD cc: [id number] TT: 09/22/2016 13:12:43 Confirmation # [id number] Dictation # [id number] jn
--- NOTE | 2016-09-22 14:54 | VASCLAB ---
PROCEDURE: HISTORY: CVA COMPARISON: None available. TECHNIQUE: Grayscale and duplex Doppler evaluation of the cervical carotid and vertebral arteries were performed. The common carotid, carotid bifurcations and cervical Internal Carotid Artery (ICA) and proximal External Carotid Artery (ECA) were evaluated. The vertebral arteries were evaluated for gross patency and flow direction. Report prepared by Guillermo Solorzano, BS, RVT FINDINGS: RIGHT CAROTID ARTERIES: 1. Common Carotid Artery: No significant focal plaque formation of the right common carotid artery. Maximum Peak Systolic velocity: 84 cm/sec: End-diastolic velocity 18 cm/sec. 2. Carotid Bifurcation: Heterogeneous plaque formation. Maximum Peak Systolic velocity: 80 cm/sec: End-diastolic velocity 23 cm/sec. 3. Internal Carotid Artery: Plaque description: 3.1. Proximal Segment: Peak systolic velocity 114 cm/sec: End-diastolic velocity 28 cm/sec - % stenosis 0-15% 3.2. Middle Segment: Peak systolic velocity 93 cm/sec: End-diastolic velocity 28 cm/sec - % stenosis 0-15% 3.3. Distal Segment: Peak systolic velocity 83 cm/sec: End-diastolic velocity 30 cm/sec - % stenosis 0-15% 4. External Carotid Artery: No significant focal plaque formation. Peak systolic velocity 99 cm/sec 5. ICA/CCA Ratio: 1.3 LEFT CAROTID ARTERIES: 1. Common Carotid Artery: No significant focal plaque formation of the left common carotid artery. Maximum Peak Systolic velocity: 72 cm/sec: End-diastolic velocity 24 cm/sec. 2. Carotid Bifurcation: Calcific plaque formation. Maximum Peak Systolic velocity: 95 cm/sec: End-diastolic velocity 25 cm/sec. 3. Internal Carotid Artery: Plaque description: 3.1. Proximal Segment: Peak systolic velocity 92 cm/sec: End-diastolic velocity 28 cm/sec - % stenosis 0-15% 3.2. Middle Segment: Peak systolic velocity 114 cm/sec: End-diastolic velocity 38 cm/sec - % stenosis 0-15% 3.3. Distal Segment: Peak systolic velocity 80 cm/sec: End-diastolic velocity 23 cm/sec - % stenosis 0-15% 4. External Carotid Artery: No significant focal plaque formation. Peak systolic velocity 67 cm/sec 5. ICA/CCA Ratio: 1.6 VERTEBRAL ARTERIES: 1. Right Vertebral Artery: The right vertebral artery flow direction is antegrade. 2. Left Vertebral Artery: The left vertebral artery flow direction is antegrade. OTHER FINDINGS: 1. Right Brachial Blood pressure: mmHg. 2. Left Brachial Blood pressure: mmHg. IMPRESSION: RIGHT: Duplex scan does not suggest hemodynamically significant stenosis of the right extracranial carotid arteries. LEFT: Duplex scan does not suggest hemodynamically significant stenosis of the left extracranial carotid arteries.
[2016-09-22] MEDS: Amoxicillin-Clav 875-125 mg Tab PO SCH (18:36)
--- NOTE | 2016-09-22 19:44 | CP.PCM.PN ---
Subjective - Date & Time of Evaluation Date of Evaluation: 09/22/16 Time of Evaluation: 19:44 - Subjective Subjective: pt seen and examined, follow up consult is dictated #[id number] Objective - Vital Signs/Intake and Output Vital Signs (last 24 hours): Temp Pulse Resp BP Pulse Ox 97.6 F 70 20 125/71 96 09/22/16 15:09 09/22/16 15:09 09/22/16 15:09 09/22/16 18:36 09/22/16 15:09 Intake and Output: 09/22/16 09/23/16 18:59 06:59 Intake Total 560 Balance 560 - Medications Medications: Current Medications Acetaminophen (Tylenol 325mg Tab) 650 mg PO Q4H PRN PRN Reason: Temperature > 100.4 F Acetaminophen/Codeine Phosphate (Tylenol/Codeine 300 Mg/30 Mg) 1 ea PO Q4 PRN PRN Reason: Pain, moderate (4-7) Last Admin: 09/21/16 16:44 Dose: 1 ea Alprazolam (Xanax) 0.5 mg PO TID PRN PRN Reason: Anxiety Last Admin: 09/21/16 00:08 Dose: 0.5 mg Amoxicillin/Clavulanate Potassium (Augmentin 875 Mg-125 Mg Tab) 1 tab PO BID [facility] Stop: 09/29/16 18:01 Last Admin: 09/22/16 18:36 Dose: 1 tab Ascorbic Acid (Vitamin C 500 Mg Tab) 500 mg PO DAILY [facility] Last Admin: 09/22/16 09:35 Dose: 500 mg Aspirin (Ecotrin) 81 mg PO DAILY [facility] Last Admin: 09/22/16 09:35 Dose: 81 mg Carvedilol (Coreg) 25 mg PO Q12H [facility] Last Admin: 09/22/16 18:36 Dose: 25 mg Clopidogrel Bisulfate (Plavix) 75 mg PO DAILY [facility] Last Admin: 09/22/16 09:35 Dose: 75 mg Epoetin Aj (Procrit) 10,000 unit IV MWF [facility] Stop: 09/23/16 09:01 Last Admin: 09/21/16 11:51 Dose: 10,000 unit Ergocalciferol (Drisdol 50,000 Intl Units Cap) 1 cap PO Q7D [facility] Last Admin: 09/21/16 14:12 Dose: 1 cap Famotidine (Pepcid) 20 mg PO DAILY [facility] Last Admin: 09/22/16 09:35 Dose: 20 mg Guaifenesin/Dextromethorphan (Robitussin Dm) 10 ml PO Q6 PRN PRN Reason: Cough and congestion Last Admin: 09/20/16 21:20 Dose: 10 ml Hydralazine HCl (Apresoline) 25 mg PO Q8H [facility] Last Admin: 09/22/16 12:42 Dose: 25 mg Insulin Aspart (Novolog) 0 unit SC ACHS [facility] PRN Reason: Protocol Last Admin: 09/22/16 18:37 Dose: 1 unit Insulin Human Isoph/Insulin Regular (Novolin 70/30 (70/30 Units/Ml) 10 Ml) 20 units SC BIDCC [facility] Last Admin: 09/22/16 18:37 Dose: 20 units Paricalcitol (Zemplar) 2 mcg IV MWF [facility] Stop: 09/23/16 09:01 Last Admin: 09/21/16 11:52 Dose: 2 mcg Risperidone (Risperdal Tab) 1 mg PO HS [facility] Last Admin: 09/21/16 21:56 Dose: 1 mg Rosuvastatin Calcium (Crestor) 5 mg PO HS [facility] Last Admin: 09/21/16 21:56 Dose: 5 mg Sevelamer Carbonate (Renvela) 2.4 gm PO TIDCC [facility] Last Admin: 09/22/16 17:25 Dose: 2.4 gm Tamsulosin HCl (Flomax) 0.4 mg PO DAILY [facility] Last Admin: 09/22/16 09:35 Dose: 0.4 mg Trazodone HCl (Desyrel) 50 mg PO HS [facility] Last Admin: 09/21/16 21:56 Dose: 50 mg Vitamin B Complex/Vit C/Folic Acid (Nephro-Marielena) 1 tab PO DAILY [facility] Last Admin: 09/22/16 09:35 Dose: 1 tab Warfarin Sodium (Coumadin) 7.5 mg PO 1800 [facility] Stop: 09/23/16 18:01 - Labs Labs: 09/21/16 09:55 09/21/16 06:54 PT 12.4 SECONDS (9.7-12.2) H 09/22/16 06:15 INR 1.1 09/22/16 06:15
--- NOTE | 2016-09-22 22:33 | PN ---
DATE: 09/22/2016 The patient is located in room 663, bed A. REQUESTED BY: Dr. Bennett Talamantes. REASON FOR RENAL CONSULTATION: End-stage renal disease and for continuation of hemodialysis. HISTORY OF PRESENT ILLNESS: The patient is a 56-year-old obese female with a past medical h istory significant for long-standing hypertension, diabetes, coronary artery disease status post CABG , end-stage renal disease on hemodialysis 3 times a week, Wednesday, Wednesday, Wednesday, was admitted wit h chief complaints of cough, shortness of breath and associated with yellow sputum and also cough ass ociated with chest discomfort. The patient is feeling slightly better today and not in distress, sti ll complains of cough with expectoration, and chest pain. Denies any nausea, vomiting. The patient has complaints of abdominal discomfort today. No dysuria, no frequency. No edema of the legs. PHYSICAL EXAMINATION: VITAL SIGNS: Blood pressure 125/71, pulse 70, respirations 20, temperature 97.6, saturation 96%, hei ght 5 feet 6 inches and weight is 272 pounds. GENERAL: The patient is a 56-year-old obese female, well built, well nourished, not in dist ress with poor vision. HEENT: Pupils normal, reactive to light and accommodation. Conjunctivae pink. Sclerae anicteric. Tongue is moist. NECK: Trachea is midline. LUNGS: Symmetric on both sides. Bilateral breath sounds present. Occasional basal crackles present . CARDIOVASCULAR: [place] at the fifth intercostal space midclavicular line. S1 and S2 audible. No murm ur, no gallop. The patient has a midsternal scar present from the previous CABG. ABDOMEN: Normal in appearance, soft, tympanic. No guarding, no rigidity. No hepatosplenomegaly. CENTRAL NERVOUS SYSTEM: The patient is alert, awake, oriented x 3, nonfocal on examination. Cranial nerves II-XII grossly intact. Sensory and motor system is within normal limits. EXTREMITIES: No cyanosis, no clubbing, no edema. CURRENT MEDICATIONS: Include as follows: Hydralazine 25 mg p.o. q. 8 hours and Augmentin 875 mg 1 t ablet p.o. b.i.d., Coreg 25 mg p.o. q. 12 hours, Coumadin 7.5 mg p.o., Crestor 5 mg p.o. at bedtime a nd trazadone 50 mg p.o. at bedtime, ergocalciferol 50,000 units 1 capsule q. 7 days, Ecotrin 81 mg da reed, Flomax 0.4 mg p.o. daily, Nephro-Marielena 1 tablet daily, Novolin 70/30 at 20 units subQ b.i.d. and NovoLog subQ for Accu-Chek, Pepcid 20 mg p.o. daily, Plavix 75 mg daily and Procrit 10,000 units 3 ti mes a week, Wednesday, Wednesday, Wednesday and Renvela 2.4 grams p.o. t.i.d., Risperdal 1 mg p.o. at bedti me and Robitussin-DM 10 mL p.o. q. 6 hours p.r.n., Tylenol with codeine, and vitamin C 500 mg p.o. da reed, Xanax 0.5 mg p.o. t.i.d., Zemplar 2 mcg 3 times a week, Wednesday, Wednesday and Wednesday. Azithromy naveen was discontinued and Zosyn was discontinued today. LABORATORY DATA: As of 09/22/2016, PT is 12.4, INR is 1.1. Accu-Cheks 132, 227 and 168. Sputum cul tures positive for normal rachid. Carotid Doppler of the right, Duplex scan does not suggest hemodyn amically significant stenosis of the right extracranial carotid arteries and the left Duplex scan orr s not suggest hemodynamically significant stenosis of the left extracranial carotid arteries. SUMMARY: The patient is a 56-year-old middle-aged obese female with a history of hypertensi on, diabetes, end-stage renal disease, coronary artery disease with cough and chest discomfort and bi polar disorder and anxiety. 1. End-stage renal disease. Continue hemodialysis 3 times a week, Wednesday, Wednesday, Wednesday, and if the patient stays in the hospital, we will schedule for hemodialysis for tomorrow. Otherwise, the p atient can go to outpatient hemodialysis center. 2. Rule out congestive heart failure versus pneumonia. Repeat chest x-ray in the a.m. after dialysi s and continue Augmentin as per the primary team. 3. Hypertension. Blood pressure is stable. 4. Diabetes. Sugars are slightly elevated. Continue insulin as per Dr. Talamantes. 5. Anemia secondary to renal failure. Continue Epogen during hemodialysis 3 times a week, Wednesday, , Wednesday and restrict fluids to 1 liter per day. Thank you for allowing me to participate in your patient's care. Sunil Ordoñez MD cc: [id number] TT: 09/22/2016 22:32:57 Confirmation # [id number] Dictation # [id number] mn
--- NOTE | 2016-09-23 01:43 | CP.PCM.PN ---
Subjective - Date & Time of Evaluation Date of Evaluation: 09/22/16 Time of Evaluation: 21:00 - Subjective Subjective: ESRD needing H.D. seen by Nephrology Dr Camara. Pneumonia seen by ID. Cardiology is seeing her as she is suffering from CHF, HTN, but [place] is Ruled out. She has Bipolar disorder. She is not fitting the MRI Machine due to Obesity. Objective - Vital Signs/Intake and Output Vital Signs (last 24 hours): Temp Pulse Resp BP Pulse Ox 98.5 F 67 20 111/64 97 09/22/16 23:15 09/22/16 23:15 09/22/16 23:15 09/22/16 23:15 09/22/16 23:15 Intake and Output: 09/22/16 09/23/16 18:59 06:59 Intake Total 560 350 Balance 560 350 - Medications Medications: Current Medications Acetaminophen (Tylenol 325mg Tab) 650 mg PO Q4H PRN PRN Reason: Temperature > 100.4 F Acetaminophen/Codeine Phosphate (Tylenol/Codeine 300 Mg/30 Mg) 1 ea PO Q4 PRN PRN Reason: Pain, moderate (4-7) Last Admin: 09/21/16 16:44 Dose: 1 ea Alprazolam (Xanax) 0.5 mg PO TID PRN PRN Reason: Anxiety Last Admin: 09/22/16 20:47 Dose: 0.5 mg Amoxicillin/Clavulanate Potassium (Augmentin 875 Mg-125 Mg Tab) 1 tab PO BID [facility] Stop: 09/29/16 18:01 Last Admin: 09/22/16 18:36 Dose: 1 tab Ascorbic Acid (Vitamin C 500 Mg Tab) 500 mg PO DAILY [facility] Last Admin: 09/22/16 09:35 Dose: 500 mg Aspirin (Ecotrin) 81 mg PO DAILY [facility] Last Admin: 09/22/16 09:35 Dose: 81 mg Carvedilol (Coreg) 25 mg PO Q12H [facility] Last Admin: 09/22/16 18:36 Dose: 25 mg Clopidogrel Bisulfate (Plavix) 75 mg PO DAILY [facility] Last Admin: 09/22/16 09:35 Dose: 75 mg Epoetin Aj (Procrit) 10,000 unit IV MWF [facility] Stop: 09/23/16 09:01 Last Admin: 09/21/16 11:51 Dose: 10,000 unit Ergocalciferol (Drisdol 50,000 Intl Units Cap) 1 cap PO Q7D [facility] Last Admin: 09/21/16 14:12 Dose: 1 cap Famotidine (Pepcid) 20 mg PO DAILY [facility] Last Admin: 09/22/16 09:35 Dose: 20 mg Guaifenesin/Dextromethorphan (Robitussin Dm) 10 ml PO Q6 PRN PRN Reason: Cough and congestion Last Admin: 09/20/16 21:20 Dose: 10 ml Hydralazine HCl (Apresoline) 25 mg PO Q8H [facility] Last Admin: 09/22/16 21:21 Dose: 25 mg Insulin Aspart (Novolog) 0 unit SC ACHS [facility] PRN Reason: Protocol Last Admin: 09/22/16 22:35 Dose: Not Given Insulin Human Isoph/Insulin Regular (Novolin 70/30 (70/30 Units/Ml) 10 Ml) 20 units SC BIDCC [facility] Last Admin: 09/22/16 18:37 Dose: 20 units Paricalcitol (Zemplar) 2 mcg IV MWF [facility] Stop: 09/23/16 09:01 Last Admin: 09/21/16 11:52 Dose: 2 mcg Risperidone (Risperdal Tab) 1 mg PO HS [facility] Last Admin: 09/22/16 21:22 Dose: 1 mg Rosuvastatin Calcium (Crestor) 5 mg PO HS [facility] Last Admin: 09/22/16 21:21 Dose: 5 mg Sevelamer Carbonate (Renvela) 2.4 gm PO TIDCC [facility] Last Admin: 09/22/16 17:25 Dose: 2.4 gm Tamsulosin HCl (Flomax) 0.4 mg PO DAILY [facility] Last Admin: 09/22/16 09:35 Dose: 0.4 mg Trazodone HCl (Desyrel) 50 mg PO HS [facility] Last Admin: 09/22/16 21:22 Dose: 50 mg Vitamin B Complex/Vit C/Folic Acid (Nephro-Marielena) 1 tab PO DAILY [facility] Last Admin: 09/22/16 09:35 Dose: 1 tab - Labs Labs: 09/21/16 09:55 09/21/16 06:54 PT 12.4 SECONDS (9.7-12.2) H 09/22/16 06:15 INR 1.1 09/22/16 06:15 Assessment and Plan (1) Altered mental status Status: Acute (2) Dyspnea Status: Acute (3) ESRD needing dialysis Status: Chronic (4) Abdominal pain Status: Acute (5) Anemia Status: Acute (6) CVA (cerebral vascular accident) Status: Suspected (7) Seizures Status: Acute
[2016-09-23] MEDS: guaiFENesin DM 200 mg-20 mg/10 ml UD PO PRN (04:04)
[2016-09-23] MEDS: (Novolin 70/30) NPH/Regular 70/30 Units/ml 10 ml vial SC SCH ×2 (08:28→18:13)
[2016-09-23] MEDS: (Novolog) Insulin Aspart, Recombinant 100 u/ml 10 ml vial SC SCH ×3 (08:29→18:14)
[2016-09-23] MEDS: Sevelamer Carb 2.4 gm/Packet PO SCH ×3 (08:29→18:13)
[2016-09-23] MEDS ORDERED: Epoetin Alfa 10,000 unit/ml Dialysis IV SCH (10:30)
[2016-09-23] MEDS ORDERED: Paricalcitol 2 mcg/ml Inj IV SCH (10:30)
[2016-09-23] MEDS: Paricalcitol 2 mcg/ml Inj IV SCH (10:50)
[2016-09-23] MEDS: Epoetin Alfa 10,000 unit/ml Dialysis IV SCH (10:51)
--- NOTE | 2016-09-23 13:14 | CP.PCM.PN ---
Subjective - Date & Time of Evaluation Date of Evaluation: 09/22/16 Time of Evaluation: 12:03 - Subjective Subjective: Pt is seen and examined, afebrile, less cough, less wheezing Objective - Vital Signs/Intake and Output Vital Signs (last 24 hours): Temp Pulse Resp BP Pulse Ox 97.6 F 71 20 126/54 L 97 09/23/16 08:55 09/23/16 08:55 09/23/16 08:55 09/23/16 11:55 09/23/16 08:55 Intake and Output: 09/23/16 09/23/16 06:59 18:59 Intake Total 350 Balance 350 - Medications Medications: Current Medications Acetaminophen (Tylenol 325mg Tab) 650 mg PO Q4H PRN PRN Reason: Temperature > 100.4 F Acetaminophen/Codeine Phosphate (Tylenol/Codeine 300 Mg/30 Mg) 1 ea PO Q4 PRN PRN Reason: Pain, moderate (4-7) Last Admin: 09/21/16 16:44 Dose: 1 ea Alprazolam (Xanax) 0.5 mg PO TID PRN PRN Reason: Anxiety Last Admin: 09/23/16 04:04 Dose: 0.5 mg Amoxicillin/Clavulanate Potassium (Augmentin 875 Mg-125 Mg Tab) 1 tab PO BID [facility] Stop: 09/29/16 18:01 Last Admin: 09/22/16 18:36 Dose: 1 tab Ascorbic Acid (Vitamin C 500 Mg Tab) 500 mg PO DAILY [facility] Last Admin: 09/22/16 09:35 Dose: 500 mg Aspirin (Ecotrin) 81 mg PO DAILY [facility] Last Admin: 09/22/16 09:35 Dose: 81 mg Carvedilol (Coreg) 25 mg PO Q12H [facility] Last Admin: 09/23/16 05:28 Dose: Not Given Clopidogrel Bisulfate (Plavix) 75 mg PO DAILY [facility] Last Admin: 09/22/16 09:35 Dose: 75 mg Epoetin Aj (Procrit) 10,000 unit IV MWF [facility] Last Admin: 09/23/16 10:47 Dose: 10,000 unit Ergocalciferol (Drisdol 50,000 Intl Units Cap) 1 cap PO Q7D [facility] Last Admin: 09/21/16 14:12 Dose: 1 cap Famotidine (Pepcid) 20 mg PO DAILY [facility] Last Admin: 09/22/16 09:35 Dose: 20 mg Guaifenesin/Dextromethorphan (Robitussin Dm) 10 ml PO Q6 PRN PRN Reason: Cough and congestion Last Admin: 09/23/16 04:04 Dose: 10 ml Hydralazine HCl (Apresoline) 25 mg PO Q8H [facility] Last Admin: 09/23/16 05:03 Dose: Not Given Insulin Aspart (Novolog) 0 unit SC ACHS [facility] PRN Reason: Protocol Last Admin: 09/23/16 08:29 Dose: 1 unit Insulin Human Isoph/Insulin Regular (Novolin 70/30 (70/30 Units/Ml) 10 Ml) 20 units SC BIDCC [facility] Last Admin: 09/23/16 08:28 Dose: 20 units Paricalcitol (Zemplar) 2 mcg IV MWF [facility] Last Admin: 09/23/16 10:49 Dose: 2 mcg Risperidone (Risperdal Tab) 1 mg PO [facility] Last Admin: 09/22/16 21:22 Dose: 1 mg Rosuvastatin Calcium (Crestor) 5 mg PO [facility] Last Admin: 09/22/16 21:21 Dose: 5 mg Sevelamer Carbonate (Renvela) 2.4 gm PO TIDCC [facility] Last Admin: 09/23/16 08:29 Dose: 2.4 gm Tamsulosin HCl (Flomax) 0.4 mg PO DAILY [facility] Last Admin: 09/22/16 09:35 Dose: 0.4 mg Trazodone HCl (Desyrel) 50 mg PO [facility] Last Admin: 09/22/16 21:22 Dose: 50 mg Vitamin B Complex/Vit C/Folic Acid (Nephro-Marielena) 1 tab PO DAILY [facility] Last Admin: 09/22/16 09:35 Dose: 1 tab - Labs Labs: 09/21/16 09:55 09/21/16 06:54 PT 12.4 SECONDS (9.7-12.2) H 09/22/16 06:15 INR 1.1 09/22/16 06:15 - Constitutional Appears: No Acute Distress - Eye Exam Eye Exam: EOMI, Normal appearance, PERRL Pupil Exam: NORMAL ACCOMODATION, PERRL - Respiratory Exam Respiratory Exam: Decreased Breath Sounds, Rales, Rhonchi - Cardiovascular Exam Cardiovascular Exam: REGULAR RHYTHM, +S1, +S2. absent: Murmur - GI/Abdominal Exam GI & Abdominal Exam: Soft, Normal Bowel Sounds. absent: Tenderness Assessment and Plan (1) Pneumonia Status: Acute (2) Altered mental status Status: Acute (3) Dyspnea Status: Acute (4) ESRD needing dialysis Status: Chronic (5) Chest pain Status: Acute - Assessment and Plan (Free Text) Plan: continue antibiotics cardiolopgy pulmonary eval
--- NOTE | 2016-09-23 13:15 | CP.PCM.PN ---
Subjective - Date & Time of Evaluation Date of Evaluation: 09/23/16 Time of Evaluation: 13:14 - Subjective Subjective: pt seen and examined, follow up consult is dictated #[id number] s/p hd today, uf 5.0 lit Objective - Vital Signs/Intake and Output Vital Signs (last 24 hours): Temp Pulse Resp BP Pulse Ox 97.6 F 71 20 126/54 L 97 09/23/16 08:55 09/23/16 08:55 09/23/16 08:55 09/23/16 11:55 09/23/16 08:55 Intake and Output: 09/23/16 09/23/16 06:59 18:59 Intake Total 350 Balance 350 - Medications Medications: Current Medications Acetaminophen (Tylenol 325mg Tab) 650 mg PO Q4H PRN PRN Reason: Temperature > 100.4 F Acetaminophen/Codeine Phosphate (Tylenol/Codeine 300 Mg/30 Mg) 1 ea PO Q4 PRN PRN Reason: Pain, moderate (4-7) Last Admin: 09/21/16 16:44 Dose: 1 ea Alprazolam (Xanax) 0.5 mg PO TID PRN PRN Reason: Anxiety Last Admin: 09/23/16 04:04 Dose: 0.5 mg Amoxicillin/Clavulanate Potassium (Augmentin 875 Mg-125 Mg Tab) 1 tab PO BID [facility] Stop: 09/29/16 18:01 Last Admin: 09/22/16 18:36 Dose: 1 tab Ascorbic Acid (Vitamin C 500 Mg Tab) 500 mg PO DAILY [facility] Last Admin: 09/22/16 09:35 Dose: 500 mg Aspirin (Ecotrin) 81 mg PO DAILY [facility] Last Admin: 09/22/16 09:35 Dose: 81 mg Carvedilol (Coreg) 25 mg PO Q12H [facility] Last Admin: 09/23/16 05:28 Dose: Not Given Clopidogrel Bisulfate (Plavix) 75 mg PO DAILY [facility] Last Admin: 09/22/16 09:35 Dose: 75 mg Epoetin Aj (Procrit) 10,000 unit IV MWF [facility] Last Admin: 09/23/16 10:47 Dose: 10,000 unit Ergocalciferol (Drisdol 50,000 Intl Units Cap) 1 cap PO Q7D [facility] Last Admin: 09/21/16 14:12 Dose: 1 cap Famotidine (Pepcid) 20 mg PO DAILY [facility] Last Admin: 09/22/16 09:35 Dose: 20 mg Guaifenesin/Dextromethorphan (Robitussin Dm) 10 ml PO Q6 PRN PRN Reason: Cough and congestion Last Admin: 09/23/16 04:04 Dose: 10 ml Hydralazine HCl (Apresoline) 25 mg PO Q8H [facility] Last Admin: 09/23/16 05:03 Dose: Not Given Insulin Aspart (Novolog) 0 unit SC ACHS [facility] PRN Reason: Protocol Last Admin: 09/23/16 08:29 Dose: 1 unit Insulin Human Isoph/Insulin Regular (Novolin 70/30 (70/30 Units/Ml) 10 Ml) 20 units SC BIDCC [facility] Last Admin: 09/23/16 08:28 Dose: 20 units Paricalcitol (Zemplar) 2 mcg IV MWF [facility] Last Admin: 09/23/16 10:49 Dose: 2 mcg Risperidone (Risperdal Tab) 1 mg PO HS [facility] Last Admin: 09/22/16 21:22 Dose: 1 mg Rosuvastatin Calcium (Crestor) 5 mg PO HS [facility] Last Admin: 09/22/16 21:21 Dose: 5 mg Sevelamer Carbonate (Renvela) 2.4 gm PO TIDCC [facility] Last Admin: 09/23/16 08:29 Dose: 2.4 gm Tamsulosin HCl (Flomax) 0.4 mg PO DAILY [facility] Last Admin: 09/22/16 09:35 Dose: 0.4 mg Trazodone HCl (Desyrel) 50 mg PO HS [facility] Last Admin: 09/22/16 21:22 Dose: 50 mg Vitamin B Complex/Vit C/Folic Acid (Nephro-Marielena) 1 tab PO DAILY [facility] Last Admin: 09/22/16 09:35 Dose: 1 tab - Labs Labs: 09/21/16 09:55 09/21/16 06:54 PT 12.4 SECONDS (9.7-12.2) H 09/22/16 06:15 INR 1.1 09/22/16 06:15
--- NOTE | 2016-09-23 13:43 | CP.PCM.PN ---
Subjective - Date & Time of Evaluation Date of Evaluation: 09/23/16 Time of Evaluation: 12:05 - Subjective Subjective: Pt seen and examined today after HD states feels better, sob and cough improved , denies any chest pain, sob , palpitations , dizziness No overnight t events reported by RN Objective - Vital Signs/Intake and Output Vital Signs (last 24 hours): Temp Pulse Resp BP Pulse Ox 97.6 F 67 18 120/59 L 97 09/23/16 12:55 09/23/16 12:55 09/23/16 12:55 09/23/16 12:55 09/23/16 12:55 Intake and Output: 09/23/16 09/23/16 06:59 18:59 Intake Total 350 Balance 350 - Medications Medications: Current Medications Acetaminophen (Tylenol 325mg Tab) 650 mg PO Q4H PRN PRN Reason: Temperature > 100.4 F Acetaminophen/Codeine Phosphate (Tylenol/Codeine 300 Mg/30 Mg) 1 ea PO Q4 PRN PRN Reason: Pain, moderate (4-7) Last Admin: 09/21/16 16:44 Dose: 1 ea Alprazolam (Xanax) 0.5 mg PO TID PRN PRN Reason: Anxiety Last Admin: 09/23/16 04:04 Dose: 0.5 mg Amoxicillin/Clavulanate Potassium (Augmentin 875 Mg-125 Mg Tab) 1 tab PO BID [facility] Stop: 09/29/16 18:01 Last Admin: 09/22/16 18:36 Dose: 1 tab Ascorbic Acid (Vitamin C 500 Mg Tab) 500 mg PO DAILY [facility] Last Admin: 09/22/16 09:35 Dose: 500 mg Aspirin (Ecotrin) 81 mg PO DAILY [facility] Last Admin: 09/22/16 09:35 Dose: 81 mg Carvedilol (Coreg) 25 mg PO Q12H [facility] Last Admin: 09/23/16 05:28 Dose: Not Given Clopidogrel Bisulfate (Plavix) 75 mg PO DAILY [facility] Last Admin: 09/22/16 09:35 Dose: 75 mg Epoetin Aj (Procrit) 10,000 unit IV MWF [facility] Last Admin: 09/23/16 10:47 Dose: 10,000 unit Ergocalciferol (Drisdol 50,000 Intl Units Cap) 1 cap PO Q7D [facility] Last Admin: 09/21/16 14:12 Dose: 1 cap Famotidine (Pepcid) 20 mg PO DAILY [facility] Last Admin: 09/22/16 09:35 Dose: 20 mg Guaifenesin/Dextromethorphan (Robitussin Dm) 10 ml PO Q6 PRN PRN Reason: Cough and congestion Last Admin: 09/23/16 04:04 Dose: 10 ml Hydralazine HCl (Apresoline) 25 mg PO Q8H [facility] Last Admin: 09/23/16 05:03 Dose: Not Given Insulin Aspart (Novolog) 0 unit SC ACHS [facility] PRN Reason: Protocol Last Admin: 09/23/16 08:29 Dose: 1 unit Insulin Human Isoph/Insulin Regular (Novolin 70/30 (70/30 Units/Ml) 10 Ml) 20 units SC BIDCC [facility] Last Admin: 09/23/16 08:28 Dose: 20 units Paricalcitol (Zemplar) 2 mcg IV MWF [facility] Last Admin: 09/23/16 10:49 Dose: 2 mcg Risperidone (Risperdal Tab) 1 mg PO HS [facility] Last Admin: 09/22/16 21:22 Dose: 1 mg Rosuvastatin Calcium (Crestor) 5 mg PO HS [facility] Last Admin: 09/22/16 21:21 Dose: 5 mg Sevelamer Carbonate (Renvela) 2.4 gm PO TIDCC [facility] Last Admin: 09/23/16 08:29 Dose: 2.4 gm Tamsulosin HCl (Flomax) 0.4 mg PO DAILY [facility] Last Admin: 09/22/16 09:35 Dose: 0.4 mg Trazodone HCl (Desyrel) 50 mg PO HS [facility] Last Admin: 09/22/16 21:22 Dose: 50 mg Vitamin B Complex/Vit C/Folic Acid (Nephro-Marielena) 1 tab PO DAILY [facility] Last Admin: 09/22/16 09:35 Dose: 1 tab Warfarin Sodium (Coumadin) 7.5 mg PO 1800 [facility] Stop: 09/23/16 18:01 - Labs Labs: 09/21/16 09:55 09/21/16 06:54 PT 12.4 SECONDS (9.7-12.2) H 09/22/16 06:15 INR 1.1 09/22/16 06:15 Assessment and Plan (1) Pneumonia Status: Acute (2) Altered mental status Status: Acute (3) Dyspnea Status: Acute (4) ESRD needing dialysis Status: Chronic (5) Chest pain Status: Acute
--- NOTE | 2016-09-23 13:56 | PN ---
DATE: 09/23/2016 SUBJECTIVE: The patient seen in the dialysis room. She said she is sleeping better. Reports no peggy lucinations. Clinically, psych-lazo, she is improving. She has been cooperative with dialysis. VITAL SIGNS: Temperature is 97.6, pulse rate is 71, blood pressure is 158/71, respirations are 20, a nd oxygen saturation is 97%. REVIEW OF SYSTEMS: GENERAL: The patient seen in the dialysis room, calm, cooperative, pleasant. SKIN: No diaphoresis. HEENT: No headache or dizziness. NECK: Supple. RESPIRATORY: No dyspnea. CARDIOVASCULAR: No chest pain. GASTROINTESTINAL: No nausea, no vomiting. EXTREMITIES: The patient moving extremities. MUSCULOSKELETAL: Feels weak. NEUROLOGIC: Alert, oriented x 3. GENITOURINARY: No urinary problems. The patient states that she wants to go home to her sister's on ce medically cleared. MENTAL STATUS EXAMINATION: Obese female, looks stated age, oriented x 3. Mood is calm. Affect is r eactive. Speech spontaneous. The patient has been sleeping well and compliant with psych meds. Tho ught process coherent. Thought content: No suicidal or homicidal ideation. The patient reports no visual hallucinations or paranoia. Attention and memory seems to be improving. Insight and judgment fair. Impulse control is fair. IMPRESSION: History of schizoaffective disorder, bipolar type, as well as history of end-stage renal disease, on dialysis, history of congestive heart failure, chronic obstructive pulmonary disease. PLAN AND RECOMMENDATIONS: The patient seen, meds reviewed. Continue present psych meds. The patient is on Xanax, trazodone and Risperdal. Continue treatment plan as outlined. Ab Vo MD cc: [id number] TT: 09/23/2016 13:56:03 Confirmation # [id number] Dictation # [id number] linda
[2016-09-23 14:00] VITALS: RESP 20
[2016-09-23] MEDS: Amoxicillin-Clav 875-125 mg Tab PO SCH ×2 (14:00→18:20)
[2016-09-23] MEDS: Multivitamin Vitamin B Complex (Nephro-Vite) Tab PO SCH (14:02)
--- NOTE | 2016-09-23 15:29 | CP.PCM.PN ---
Subjective - Date & Time of Evaluation Date of Evaluation: 09/23/16 Time of Evaluation: 15:00 - Subjective Subjective: Pt seen and examined today after HD states feels better, sob and cough improved , denies any chest pain, sob , palpitations , dizziness No overnight t events reported by RN Objective - Vital Signs/Intake and Output Vital Signs (last 24 hours): Temp Pulse Resp BP Pulse Ox 98.4 F 80 20 149/78 99 09/23/16 13:59 09/23/16 13:59 09/23/16 13:59 09/23/16 13:59 09/23/16 13:59 Intake and Output: 09/23/16 09/23/16 06:59 18:59 Intake Total 350 Balance 350 - Medications Medications: Current Medications Acetaminophen (Tylenol 325mg Tab) 650 mg PO Q4H PRN PRN Reason: Temperature > 100.4 F Acetaminophen/Codeine Phosphate (Tylenol/Codeine 300 Mg/30 Mg) 1 ea PO Q4 PRN PRN Reason: Pain, moderate (4-7) Last Admin: 09/21/16 16:44 Dose: 1 ea Alprazolam (Xanax) 0.5 mg PO TID PRN PRN Reason: Anxiety Last Admin: 09/23/16 04:04 Dose: 0.5 mg Amoxicillin/Clavulanate Potassium (Augmentin 875 Mg-125 Mg Tab) 1 tab PO BID [facility] Stop: 09/29/16 18:01 Last Admin: 09/23/16 14:00 Dose: 1 tab Ascorbic Acid (Vitamin C 500 Mg Tab) 500 mg PO DAILY [facility] Last Admin: 09/23/16 14:02 Dose: 500 mg Aspirin (Ecotrin) 81 mg PO DAILY [facility] Last Admin: 09/23/16 14:02 Dose: 81 mg Carvedilol (Coreg) 25 mg PO Q12H [facility] Last Admin: 09/23/16 05:28 Dose: Not Given Clopidogrel Bisulfate (Plavix) 75 mg PO DAILY [facility] Last Admin: 09/23/16 14:01 Dose: 75 mg Epoetin Aj (Procrit) 10,000 unit IV MWF [facility] Last Admin: 09/23/16 10:47 Dose: 10,000 unit Ergocalciferol (Drisdol 50,000 Intl Units Cap) 1 cap PO Q7D [facility] Last Admin: 09/21/16 14:12 Dose: 1 cap Famotidine (Pepcid) 20 mg PO DAILY [facility] Last Admin: 09/23/16 14:02 Dose: 20 mg Guaifenesin/Dextromethorphan (Robitussin Dm) 10 ml PO Q6 PRN PRN Reason: Cough and congestion Last Admin: 09/23/16 04:04 Dose: 10 ml Hydralazine HCl (Apresoline) 25 mg PO Q8H [facility] Last Admin: 09/23/16 14:01 Dose: 25 mg Insulin Aspart (Novolog) 0 unit SC ACHS [facility] PRN Reason: Protocol Last Admin: 09/23/16 14:12 Dose: 1 unit Insulin Human Isoph/Insulin Regular (Novolin 70/30 (70/30 Units/Ml) 10 Ml) 20 units SC BIDCC [facility] Last Admin: 09/23/16 08:28 Dose: 20 units Paricalcitol (Zemplar) 2 mcg IV MWF [facility] Last Admin: 09/23/16 10:49 Dose: 2 mcg Risperidone (Risperdal Tab) 1 mg PO HS [facility] Last Admin: 09/22/16 21:22 Dose: 1 mg Rosuvastatin Calcium (Crestor) 5 mg PO HS [facility] Last Admin: 09/22/16 21:21 Dose: 5 mg Sevelamer Carbonate (Renvela) 2.4 gm PO TIDCC [facility] Last Admin: 09/23/16 14:02 Dose: 2.4 gm Tamsulosin HCl (Flomax) 0.4 mg PO DAILY [facility] Last Admin: 09/23/16 14:01 Dose: 0.4 mg Trazodone HCl (Desyrel) 50 mg PO HS [facility] Last Admin: 09/22/16 21:22 Dose: 50 mg Vitamin B Complex/Vit C/Folic Acid (Nephro-Marielena) 1 tab PO DAILY [facility] Last Admin: 09/23/16 14:02 Dose: 1 tab Warfarin Sodium (Coumadin) 7.5 mg PO 1800 [facility] Stop: 09/23/16 18:01 - Labs Labs: 09/21/16 09:55 09/21/16 06:54 PT 12.4 SECONDS (9.7-12.2) H 09/22/16 06:15 INR 1.1 09/22/16 06:15 Assessment and Plan - Assessment and Plan (Free Text) Assessment: A/P 56 yr old female admitted for sob, fluid overload, pneumonia s/p HD and 5 lit removed vss- stable Pt responded well with antibiotics seen by Dr. Gamez today and recommends to continue current medications D/W Dr. Talamantes, stable for discharge home today and f/u wi office in 1 week Discharge plan discussed with patient who understands and agrees with plan Pt instructed to returns to ED if symptoms returns
--- NOTE | 2016-09-23 15:29 | PCM.HF ---
Heart Failure Core Measure - Heart Failure Ejection Fraction: 40 % or Greater JO-ANN Inhibitor Prescribed: No Contraindication/Reason for not providing: ESRD Beta-Shila Prescribed: Carvedilol Angiotensin II Receptor Shila Prescribed: No Contraindication/Reason for not providing: ESRD AnticoagulationTherapy for Atrial Fibrillation/Atrialflutter: Yes Aldosterone Antagonist Prescribed: No Contraindication/Reason for not providing: ESRD Hydralazine Nitrate Prescribed: Yes Implantable Cardioverter Defibrillator Therapy: No Contraindication/Reason for not providing: EF.45 Cardiac Resynchronization Therapy Prescribed: No Contraindication/Reason for not providing: EF>45 - Follow up Will be discharged to: Home Follow Up Date (must be within 7 days from discharge): 09/25/16 Follow Up Time: 09:00
[2016-09-23 16:12] VITALS: PULSE 75; TEMP 98.7; O2SAT 96
[2016-09-23 16:13] VITALS: BP 146/78
--- NOTE | 2016-09-23 18:39 | PN ---
DATE: 09/23/2016 HISTORY OF PRESENT ILLNESS: The patient's shortness of breath has improved. She underwent hemodialy sis today. She denies retrosternal chest pain. No productive cough. PHYSICAL EXAMINATION: VITAL SIGNS: Blood pressure 146/78, heart rate 75, temperature 98.7, respiration 20. HEENT: Normocephalic. NECK: No JVD. CHEST: Minimal basal rhonchi. HEART: S1, S2 regular. EXTREMITIES: Trace leg edema. LABORATORIES: EILEEN profile is positive. EILEEN titers are positive in a ratio of 1:80, anam starks rn. ASSESSMENT: 1. End-stage renal disease. 2. Rule out systemic lupus erythematosus. 3. Coronary artery disease, status post coronary artery bypass surgery. 4. Paroxysmal atrial fibrillation. 5. Anxiety and depression. 6. Hypertension and diabetes mellitus. 7. Diabetic retinopathy and legal blindness. RECOMMENDATIONS: The case was discussed with the SERVICE CENTER TECHNICIAN. Apparently, the patient was attempted to unde rgo a brain MRI but she could not fit in the machine. Continue hydralazine 25 mg q. 8 hours, Augment in at 1 tablet twice a day, Coreg 25 mg twice a day, Coumadin 7.5 mg orally daily, Crestor at 5 mg on ce a day, aspirin 81 mg once a day, Plavix 75 mg once a day. Discontinue Plavix once therapeutic INR is achieved. Demar Stahl MD cc: [id number] TT: 09/23/2016 18:38:21 Confirmation # [id number] Dictation # [id number] ln
--- NOTE | 2016-09-23 23:50 | PN ---
DATE: 09/23/2016 LOCATION: The patient is located in 663, bed A. REQUESTED BY: Dr. Bennett Talamantes. REASON FOR RENAL CONSULTATION: End-stage renal disease, for continuation of hemodialysis. HISTORY OF PRESENT ILLNESS: The patient is a 56-year-old obese female with a past medical history significant for longstanding hypertension, diabetes , end-stage renal disease, congestive heart failure, paroxysmal atrial fibrillation and also bipolar disorder, anxiety. Was admitted with cough, shortness of breath and chest discomfort. The patient was found to have a chest x-ray consistent with congestion versus infiltrates and the patient was seen and examined during dialysis today. The patient denies any complaints. The patient claims that she is feeling better, less cough. The patient had ultrafiltration about 5 liters this morning during dialysis. The patient is not in acute distress. No chest pain, no palpitation, no fever or cough. No nausea, vomiting, diarrhea. PHYSICAL EXAMINATION: VITAL SIGNS: As follows: Blood pressure postdialysis 120/59, pulse 67, respirations 18, and saturation 97% and temperature 97.6. GENERAL: The patient is a 56-year-old obese female, well-built, well- nourished, not in distress. HEENT: Pupils normal, reactive to light and accommodation. Conjunctivae pink. Sclerae anicteric. Tongue is moist. NECK: Trachea is midline. LUNGS: Symmetric on both sides. Bilateral breath sounds present. Clear on auscultation. CARDIOVASCULAR: [place] in the fifth intercostal space midclavicular line. S1 and S2 audible. No murmur or gallop. ABDOMEN: Normal in appearance. Soft, tympanic. No guarding, no rigidity. No hepatosplenomegaly. CENTRAL NERVOUS SYSTEM: The patient is alert, awake, oriented x 3, nonfocal on examination. Cranial nerves II through XII grossly intact. Sensory and motor system is within normal limits. EXTREMITIES: No cyanosis, no clubbing, no edema. CURRENT MEDICATIONS: Include as follows: Hydralazine 25 mg p.o. q. 8 hours, Augmentin 875 mg p.o. b.i.d., Coreg 25 mg p.o. q. 12 hours, warfarin 7.5 mg p.o. daily, Crestor 5 mg at bedtime, Trazodone 50 mg p.o. at bedtime, ergocalciferol 50,000 units 1 capsule q. weekly, Ecotrin 81 mg p.o. daily, Flomax 0.4 daily, Nephro-Marielena 1 tablet daily, Novolin 70/30 20 units subQ b.i.d. , NovoLog for sliding scale, Pepcid 20 mg p.o. daily, Plavix 75 mg daily, Procrit 10,000 units 3 times a week, Wednesday, Wednesday, Wednesday, Renvela 2.4 mg p.o. t.i.d., Risperdal 1 mg p.o. at bedtime, Robitussin-DM 10 mL p.o. q. 6 hours p.r.n., Tylenol 650 mg p.o. q. 4 hours, Tylenol with codeine 1 tablet p.o. q. 4 hours p.r.n., vitamin C 500 mg p.o. daily, Xanax 0.5 mg p.o. t.i.d., Zemplar 2 mcg 3 times a week, Wednesday, Wednesday, and Wednesday. LABORATORY DATA: Include as follows: As of 09/23/2016, Accu-Chek 152 and 178. As of 09/22/2016, PT is 12.4, INR 1.1. As of 09/21/2016, potassium 4.8, BUN 58, creatinine 6.7 and H and H as of 09/21/2016: Hemoglobin 9.1, hematocrit is 27.7. SUMMARY: The patient is a 56-year-old obese female with a history of longstanding hypertension, diabetes, end-stage renal disease, coronary artery disease status post CABG, paroxysmal atrial fibrillation, was admitted with cough, shortness of breath and chest discomfort, status post IV antibiotics and antibiotic was changed to Augmentin yesterday. The patient is feeling much better. IMPRESSION AND PLAN: 1. End-stage renal disease. Continue hemodialysis 3 times a week, Wednesday, Wednesday and Wednesday. The patient underwent hemodialysis today, had ultrafiltration about 5 liters and postdialysis weight is 124.4 kilos. 2. Hypertension. Blood pressure is stable. Continue her current medications, hydralazine and Coreg. 3. Congestive heart failure. Will assess pneumonia, restrict fluids to 1 liter per day and continue antibiotics as per Dr. Talamantes. The patient is stable from the renal standpoint for possible discharge. Thank you for allowing me to participate in your patient's care. The patient will go to outpatient hemodialysis unit on Wednesday. Sunil Ordoñez MD cc: [id number] TT: 09/23/2016 23:49:25 Confirmation # [id number] Dictation # [id number] mn [id number]
--- NOTE | 2016-09-23 23:58 | CP.PCM.PN ---
Subjective - Date & Time of Evaluation Date of Evaluation: 09/23/16 Time of Evaluation: 15:00 - Subjective Subjective: Patient is diagnosed having Schizoaffective disorder by Dr Chambers, Psychiatrist. She received a Hemodialysis session today. She received treatment for her Pneumonia. She is discharged home safely. Objective - Vital Signs/Intake and Output Vital Signs (last 24 hours): Temp Pulse Resp BP Pulse Ox 98.7 F 75 20 146/78 96 09/23/16 15:12 09/23/16 15:12 09/23/16 15:12 09/23/16 18:15 09/23/16 15:12 Intake and Output: 09/23/16 09/24/16 18:59 06:59 Intake Total 400 Balance 400 - Labs Labs: 09/21/16 09:55 09/21/16 06:54 PT 12.4 SECONDS (9.7-12.2) H 09/22/16 06:15 INR 1.1 09/22/16 06:15 Assessment and Plan (1) Altered mental status Status: Acute (2) Dyspnea Status: Acute (3) ESRD needing dialysis Status: Chronic (4) Abdominal pain Status: Acute (5) Anemia Status: Acute (6) CVA (cerebral vascular accident) Status: Suspected (7) Seizures Status: Acute
--- NOTE | 2016-09-24 22:57 | CP.PCM.DIS ---
Provider - Provider Date of Admission: 09/18/16 18:02 Attending physician: Bennett Talamantes MD Time Spent in preparation of Discharge (in minutes): 30 Diagnosis - Discharge Diagnosis (1) Pneumonia Status: Acute (2) Altered mental status Status: Acute (3) Dyspnea Status: Acute (4) ESRD needing dialysis Status: Chronic (5) Chest pain Status: Acute Hospital Course - Lab Results Lab Results: Micro Results 09/19/16 15:15 Blood Blood Culture - Final NO GROWTH AFTER 5 DAYS 09/19/16 15:15 Blood Gram Stain - Final TEST NOT PERFORMED 09/19/16 14:45 Blood Blood Culture - Final NO GROWTH AFTER 5 DAYS 09/19/16 14:45 Blood Gram Stain - Final TEST NOT PERFORMED 09/22/16 19:48 Naris MRSA Culture (Admit) - Final MRSA NOT DETECTED 09/20/16 20:32 Sputum Gram Stain - Final 09/20/16 20:32 Sputum Sputum Culture - Final NORMAL ORAL CHRISTINE 09/19/16 15:00 Sputum Gram Stain - Final 09/19/16 15:00 Sputum Sputum Culture - Final Most Recent Lab Values WBC 10.8 K/uL (4.8-10.8) 09/21/16 09:55 RBC 2.84 Mil/uL (3.80-5.20) L 09/21/16 09:55 Hgb 9.1 g/dL (11.0-16.0) L 09/21/16 09:55 Hct 27.7 % (34.0-47.0) L 09/21/16 09:55 MCV 97.4 fL (81.0-99.0) 09/21/16 09:55 MCH 31.9 pg (27.0-31.0) H 09/21/16 09:55 MCHC 32.7 g/dL (33.0-37.0) L 09/21/16 09:55 RDW 15.8 % (11.5-14.5) H 09/21/16 09:55 Plt Count 185 K/uL (130-400) 09/21/16 09:55 MPV 10.3 fL (7.2-11.7) 09/21/16 09:55 Neut % (Auto) 83.7 % (50.0-75.0) H 09/21/16 09:55 Lymph % (Auto) 8.3 % (20.0-40.0) L 09/21/16 09:55 [place] % (Auto) 6.0 % (0.0-10.0) 09/21/16 09:55 Eos % (Auto) 1.7 % (0.0-4.0) 09/21/16 09:55 Baso % (Auto) 0.3 % (0.0-2.0) 09/21/16 09:55 Neut # 9.0 K/uL (1.8-7.0) H 09/21/16 09:55 Lymph # 0.9 K/uL (1.0-4.3) L 09/21/16 09:55 [place] # 0.6 K/uL (0.0-0.8) 09/21/16 09:55 Eos # 0.2 K/uL (0.0-0.7) 09/21/16 09:55 Baso # 0.0 K/uL (0.0-0.2) 09/21/16 09:55 Neutrophils % (Manual) 82 % (50-75) H 09/21/16 09:55 Band Neutrophils % 1 % (0-2) 09/21/16 09:55 Lymphocytes % (Manual) 8 % (20-40) L 09/21/16 09:55 Monocytes % (Manual) 7 % (0-10) 09/21/16 09:55 Eosinophils % (Manual) 1 % (0-4) 09/21/16 09:55 Basophils % (Manual) 1 % (0-2) 09/21/16 09:55 Platelet Estimate Normal (NORMAL) 09/21/16 09:55 Large Platelets Present 09/20/16 08:12 Giant Platelets Present 09/20/16 08:12 RBC Morphology Normal 09/18/16 14:19 Polychromasia Slight 09/20/16 08:12 Hypochromasia (manual) Slight 09/20/16 08:12 Anisocytosis (manual) Slight 09/21/16 09:55 Tear Drop Cells Slight 09/21/16 09:55 ESR 114 mm/hr (0-20) H 09/20/16 08:12 PT 12.4 SECONDS (9.7-12.2) H 09/22/16 06:15 INR 1.1 09/22/16 06:15 Puncture Site Rra 09/18/16 16:05 pCO2 48 mm/Hg (35-45) H 09/18/16 16:05 pO2 111 mm/Hg (80-100) H 09/18/16 16:05 HCO3 27.1 mmol/L (21-28) 09/18/16 16:05 ABG pH 7.38 (7.35-7.45) 09/18/16 16:05 ABG Total CO2 29.9 mmol/L (22-28) H 09/18/16 16:05 ABG O2 Saturation 97.8 % (95-98) 09/18/16 16:05 ABG Base Excess 2.8 mmol/L (-2.0-3.0) 09/18/16 16:05 ABG Hemoglobin 8.6 g/dL (11.7-17.4) L 09/18/16 16:05 ABG Carboxyhemoglobin 1.9 % (0.5-1.5) H 09/18/16 16:05 POC ABG HHb (Measured) 2.1 % (0.0-5.0) 09/18/16 16:05 ABG Methemoglobin 1.0 % (0.0-3.0) 09/18/16 16:05 Gavin Test Pos 09/18/16 16:05 A-a O2 Difference 86.0 mm/Hg 09/18/16 16:05 Respiratory Index 0.8 09/18/16 16:05 Hgb O2 Saturation 95.0 % (95.0-98.0) 09/18/16 16:05 Liter Flow 4.0 09/18/16 16:05 FiO2 36.0 % 09/18/16 16:05 Sodium 135 mmol/L (132-148) 09/21/16 06:54 Potassium 4.8 mmol/L (3.6-5.2) 09/21/16 06:54 Chloride 92 mmol/L (98-107) L 09/21/16 06:54 Carbon Dioxide 25 mmol/L (22-30) 09/21/16 06:54 Anion Gap 23 (10-20) H 09/21/16 06:54 BUN 58 mg/dL (7-17) H 09/21/16 06:54 Creatinine 6.7 MG/DL (0.7-1.2) H 09/21/16 06:54 Est GFR ( Amer) 8 09/21/16 06:54 Est GFR (Non-Af Amer) 6 09/21/16 06:54 POC Glucose (mg/dL) 239 mg/dL (65-110) H 09/23/16 16:48 Random Glucose 135 mg/dL (65-105) H 09/21/16 06:54 Hemoglobin A1c 6.3 % (4.2-6.5) 09/20/16 08:12 Calcium 9.1 mg/dl (8.6-10.4) 09/21/16 06:54 Total Bilirubin 1.0 mg/dL (0.2-1.3) 09/21/16 06:54 AST 15 U/L (14-36) 09/21/16 06:54 ALT 20 U/L (9-52) 09/21/16 06:54 Alkaline Phosphatase 74 U/L (38-126) 09/21/16 06:54 Total Creatine Kinase 73 U/L (30-135) 09/20/16 08:50 CK-MB (Mass) 1.16 ng/mL (0.0-3.38) 09/20/16 08:50 Troponin I 0.1060 ng/mL (0.00-0.120) 09/18/16 14:19 Troponin I, Quant 0.0590 ng/mL (0.00-0.120) 09/20/16 08:50 C-React Prot High Sens > 15.00 mg/L (1.00-3.00) H 09/20/16 08:12 Total Protein 7.0 g/dL (6.3-8.3) 09/21/16 06:54 Albumin 3.9 g/dL (3.5-5.0) 09/21/16 06:54 Globulin 3.1 gm/dL (2.2-3.9) 09/21/16 06:54 Albumin/Globulin Ratio 1.3 (1.0-2.1) 09/21/16 06:54 25-OH Vitamin D Total < 12.8 NG/ML (30.0-100.0) L 09/20/16 08:12 Procalcitonin 0.85 NG/ML (0.19-0.49) H 09/20/16 17:25 Rheum Arthritis Panel Negative (NEGATIVE) 09/20/16 08:12 EILEEN 6 Profile Positive (NEGATIVE) H 09/20/16 08:12 EILEEN Titer 1:80 H 09/20/16 08:12 EILEEN Pattern Homogenous H 09/20/16 08:12 Lyme IgG 18 kDa Band Nonreactive 09/20/16 08:12 Lyme IgG 23 kDa Band Nonreactive 09/20/16 08:12 Lyme IgG 28 kDa Band Nonreactive 09/20/16 08:12 Lyme IgG 30 kDa Band Nonreactive 09/20/16 08:12 Lyme IgG 39 kDa Band Nonreactive 09/20/16 08:12 Lyme IgG 41 kDa Band Reactive H 09/20/16 08:12 Lyme IgG 45 kDa Band Nonreactive 09/20/16 08:12 Lyme IgG 58 kDa Band Nonreactive 09/20/16 08:12 Lyme IgG 66 kDa Band Nonreactive 09/20/16 08:12 Lyme IgG 93 kDa Band Nonreactive 09/20/16 08:12 Lyme IgG W Blot Interp Negative (Negative) 09/20/16 08:12 Lyme IgM 23 kDa Band Nonreactive 09/20/16 08:12 Lyme IgM 39 kDa Band Nonreactive 09/20/16 08:12 Lyme IgM 41 kDa Band Nonreactive 09/20/16 08:12 Lyme IgM W Blot Interp Negative (Negative) 09/20/16 08:12 HIV 1&2 Antibody Screen Negative (NEGATIVE) 09/20/16 08:12 Influenza Typ A,B (EIA) Negative for flu a/b (NEGATIVE) 09/19/16 11:59 - Hospital Course Hospital Course: Patient is diagnosed having Schizoaffective disorder by Dr Chambers, Psychiatrist. She received a Hemodialysis session today. She received treatment for her Pneumonia. She is discharged home safely Discharge Exam - Head Exam Head Exam: ATRAUMATIC, NORMAL INSPECTION, NORMOCEPHALIC - Eye Exam Eye Exam: EOMI, Normal appearance, PERRL - ENT Exam ENT Exam: Mucous Membranes Moist - Respiratory Exam Respiratory Exam: Decreased Breath Sounds, NORMAL BREATHING PATTERN - Cardiovascular Exam Cardiovascular Exam: REGULAR RHYTHM, +S1, +S2 - Neurological Exam Neurological exam: Alert, CN II-XII Intact, Normal Gait, Oriented x3, Reflexes Normal Discharge Plan - Discharge Medications Prescriptions: Amoxicillin/Clavulanate [Augmentin 875 MG-125 MG Tab] 1 tab PO BID #10 tab Ergocalciferol [Drisdol 50,000 Intl Units Cap] 1 cap PO Q7D #10 cap risperiDONE [RisperDAL Tab] 1 mg PO HS #30 tab - Follow Up Plan Condition: GOOD Disposition: HOME/ ROUTINE Instructions: Heart Failure (DC), Dialysis Diet (DC), Altered Mental Status ( GEN), End Stage Kidney Disease (DC) Additional Instructions: Please f/u with Dr. Talamantes office in 1 week Continue medication as per Med. Rec. Continue HD SCHEDULED Continue augmentin x 5 more days Please [facility]kl[facility] Referrals: Benentt Talamantes MD [Staff Provider] -
--- NOTE | 2016-09-29 11:14 | EEG ---
DATE: 09/21/2016 The record was obtained for a history of rule out seizures and she has altered mental status. She missed a dialysis and she has shortness of breath. The record was obtained while the patient was awake and drowsy. The record was symmetrically equal on both sides with a velocity of 8-9 cycles per second. The waves are fairly formed, fairly organized with a posterior distribution, moderate in amplitude, reactive to eye opening by attenuation. There were abnormal discharges that were seen in the left temporal, occipital and left parietal occipital area and lasted for about 4-5 seconds. The record did not show any changes with photic stimulation. The hyperventilation was omitted. There are periods of drowsiness during which attenuation and slowing of the record were seen and theta waves were seen. There were periods of sleep during which delta waves were seen. There are eye movement artifacts, electrode artifact, and muscle movement artifacts. Photic stimulation was performed and did not produce any changes. Hyperventilation was omitted. In sum, this is an abnormal record, significant for cerebral dysrhythmia in the left temporal-occipital and left parietooccipital which might be consistent with a focal disorder in the brain that can be a seizure disorder. Clinical correlation is recommended. A video EEG is recommended for better assessment and the patient needs to be under observation. Dear doctor, many thanks for referring this patient to me. Claudy Mtz MD cc: [id number] TT: 09/26/2016 07:03:20 Confirmation # [id number] Dictation # [id number] elaine [email or web address]
== END 2016-09-23 18:40 | disposition home or self-care (01) | DRG 291 ==
LOC: C.ER 13:38 → C.9E 18:02 → C.6T 18:56
PROVIDERS: ADMIT Internal Medicine; ATTEND Internal Medicine
PROC: 5A1D60Z (ICD-10-PCS; principal; 2016-09-18)
DX: I13.2 Hypertensive heart and chronic kidney disease with heart failure and with stage 5 chronic kidney disease, or end stage renal disease (principal); J18.9 Pneumonia, unspecified organism; G93.41 Metabolic encephalopathy; E11.22 Type 2 diabetes mellitus with diabetic chronic kidney disease; N18.6 End stage renal disease; Z95.1 Presence of aortocoronary bypass graft; I50.23 Acute on chronic systolic (congestive) heart failure; J44.0 Chronic obstructive pulmonary disease with (acute) lower respiratory infection; E66.01 Morbid (severe) obesity due to excess calories; I48.0 Paroxysmal atrial fibrillation; Z99.2 Dependence on renal dialysis; I25.10 Atherosclerotic heart disease of native coronary artery without angina pectoris; E78.00 Pure hypercholesterolemia, unspecified; F32.9 Major depressive disorder, single episode, unspecified; M06.9 Rheumatoid arthritis, unspecified; F25.0 Schizoaffective disorder, bipolar type; E11.319 Type 2 diabetes mellitus with unspecified diabetic retinopathy without macular edema; Z87.891 Personal history of nicotine dependence; D63.1 Anemia in chronic kidney disease; Z79.4 Long term (current) use of insulin

== ENCOUNTER 2016-11-09 19:51 | Emergency (ER) | payer MEDICAID, MEDICARE ==
[2016-11-09 19:51] VITALS: BMI 43.5
--- NOTE | 2016-11-09 20:35 | C.PDOC ---
History Of Present Illness 56 y/o female presents to the ED for [id number] of headache and left lip pain which began after she sustained a fall at around 11:30 this morning. Patient states she accidentally tripped and fell at home and hit her head and left hip. Patient then got up and attended her dialysis session. Patient continues to feel pain despite taking Tylenol with Codeine and presents to the ED for further evaluation. Patient denies LOC, nausea, vomiting, extremity numbness/ weakness. - HPI Time Seen by Provider: 11/09/16 20:09 Chief Complaint (Nursing): Trauma History Per: Patient History/Exam Limitations: no limitations Onset/Duration Of Symptoms: Hrs Location Of Injury: Left: Hip Additional History Per: Patient Past Medical History Reviewed: Historical Data, Nursing Documentation, Vital Signs Vital Signs: Last Vital Signs Temp 97.6 F 11/09/16 22:03 Pulse 78 11/09/16 22:03 Resp 20 11/09/16 22:03 BP 164/81 H 11/09/16 22:03 Pulse Ox 97 11/09/16 22:03 - Medical History PMH: Anxiety, Arthritis, Asthma, Atrial Fibrillation, Back Problems (chronic back pain), CAD (CABG), CHF, COPD, Depression, Diabetes, Deep Vein Thrombosis, HTN, Hypercholesterolemia, Kidney Stones, End Stage Renal Disease, Chronic Kidney Disease, Rheumatoid Arthritis, Schizophrenia Surgical History: CABG (X4), Cholecystectomy, Coronary Stent - [facility] Procedures D & C NEC (06/07/13) DILATION OF LEFT URETER WITH INTRALUMINAL DEVICE, ENDO (05/12/15) EXCISION OF ASCENDING COLON, ENDO, DIAGN (04/23/16) HEMODIALYSIS (10/10/14) INSPECTION OF LOWER INTESTINAL TRACT, ENDO (04/23/16) LAPAROSCOP REMOVE OVARIES/TUBES (06/26/13) LAPAROSCOPIC RADICAL ABDOMINAL HYSTERECTOMY (06/26/13) LAPAROSCOPIC ROBOTIC ASSISTED PROCEDURE (06/26/13) LYMPHATIC STRUCT BIOPSY (06/26/13) OTHER ENDOSCOPY OF SM INTEST (07/27/14) PACKED CELL TRANSFUSION (06/07/13) PERFORMANCE OF URINARY FILTRATION, MULTIPLE (09/18/16) PERFORMANCE OF URINARY FILTRATION, SINGLE (09/08/16) TRANSFUSE NONAUT FROZEN PLASMA IN PERIPH VEIN, PERC (04/23/16) TRANSFUSE NONAUT WHOLE BLOOD IN PERIPH VEIN, PERC (04/23/16) VENOUS CATHETERIZATION NEC (06/07/13) Family History: States: Diabetes - Social History Hx Tobacco Use: Yes Hx Alcohol Use: No Hx Substance Use: No - Immunization History Hx Tetanus Toxoid Vaccination: No Hx Influenza Vaccination: No Hx Pneumococcal Vaccination: No Review Of Systems Constitutional: Negative for: Fever, Chills Cardiovascular: Negative for: Chest Pain, Palpitations Respiratory: Negative for: Cough, Shortness of Breath Gastrointestinal: Negative for: Nausea, Vomiting, Abdominal Pain, Diarrhea Musculoskeletal: Positive for: Other (+left hip pain ) Neurological: Positive for: Headache. Negative for: Weakness, Numbness, Other ( LOC ) Physical Exam - Physical Exam Appears: Non-toxic, No Acute Distress Skin: Normal Color, Warm, Dry Head: Atraumatic, Normacephalic Eye(s): bilateral: Normal Inspection Oral Mucosa: Moist Neck: Normal ROM, No Midline Cervical Tenderness Chest: No Deformity, No Tenderness Cardiovascular: Rhythm Regular, No Murmur Respiratory: Normal Breath Sounds, No Accessory Muscle Use, No Rales, No Rhonchi , No Wheezing Extremity: Normal ROM, Tenderness (to left lateral hip and left knee ), Capillary Refill (less than 2 seconds ), No Deformity, No Swelling Neurological/Psych: Oriented x3, Normal Cranial Nerves, Normal Motor, Normal Sensation, Other (no focal deficits) Gait: Steady ED Course And Treatment - CT Scan/US CT Head Other Rad Studies (CT/US): Read By Radiologist, Radiology Report Reviewed CT/US Interpretation: EXAM: CT Head Without Intravenous Contrast. CLINICAL HISTORY: 56 years old, female; Injury or trauma; Fall; Initial encounter; Abrasion; Head, generalized; Additional. info: Fall headache. TECHNIQUE: Axial computed tomography images of the head/brain without intravenous contrast. This CT exam. was performed using one or more of the following dose reduction techniques: automated exposure. control, adjustment of the mA and/or kV according to patient size, and/or use of iterative. reconstruction technique. COMPARISON: CT - HEAD W/O CONTRAST 05/12/2015 1:00:48 PM. FINDINGS : Limitations: Evaluation moderately limited by patient motion. Brain: Mild to moderate brain volume loss. Periventricular and subcortical hypodensities are. nonspecific and could reflect chronic microvascular ischemic changes. No hemorrhage. Ventricles: Unremarkable. No ventriculomegaly. Bones/joints: Unremarkable. No acute fracture. Soft tissues: Unremarkable. Vasculature: Calcific atherosclerosis of the bilateral carotid siphon. Sinuses: Unremarkable as visualized. No acute sinusitis. Mastoid air cells: Unremarkable as visualized. No mastoid effusion. IMPRESSION: Evaluation moderately limited by patient motion. No evidence of acute intracranial brain trauma. Disposition - Disposition Referrals: Bennett Talamantes MD [Staff Provider] - Disposition: HOME/ ROUTINE Disposition Time: 23:40 Condition: STABLE Prescriptions: Naproxen [Naprosyn] 500 mg PO Q12H PRN #10 tablet PRN Reason: Pain, Moderate (4-7) Instructions: Contusion in Adults (ED) Forms: General Discharge Instructions - Clinical Impression Clinical Impression: Knee contusion, Contusion, hip, Scalp contusion - Scribe Statement The provider has reviewed the documentation as recorded by the Scribe (Karmen Hobbs) Provider Attestation: All medical record entries made by the Scribe were at my direction and personally dictated by me. I have reviewed the chart and agree that the record accurately reflects my personal performance of the history, physical exam, medical decision making, and the department course for this patient. I have also personally directed, reviewed, and agree with the discharge instructions and disposition.
[2016-11-09 22:04] VITALS: BP 164/81; PULSE 78; RESP 20; TEMP 97.6; O2SAT 97
--- NOTE | 2016-11-10 09:06 | RAD ---
PROCEDURE: Left Knee Radiographs. HISTORY: Pain. COMPARISON: None. FINDINGS: BONES: No fracture. JOINTS: Mild patellofemoral osteoarthritis. JOINT EFFUSION: None. OTHER FINDINGS: Atherosclerotic vascular calcifications and subcutaneous edema suggested. Surgical clips in the medial soft tissues present IMPRESSION: No fracture or dislocation. Mild patellofemoral osteoarthrosis. Postsurgical change. Atherosclerotic vascular disease Probable lymph edema -cellulitis not excluded
--- NOTE | 2016-11-10 09:13 | RAD ---
PROCEDURE: HISTORY: fall pain COMPARISON: [facility] 02/04/2016 TECHNIQUE: AP view of the pelvis and applicable frog leg views obtained. FINDINGS: No fracture or dislocation. Left superolateral hip joint space narrowing with mild acetabular spurring -osteoarthrosis. 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 Extensive vascular calcifications. Moderate stool retention. Prior left ureteral stent removed. Large body habitus IMPRESSION: No fracture or dislocation.
--- NOTE | 2016-11-10 09:19 | CT ---
PROCEDURE: CT HEAD WITHOUT CONTRAST. HISTORY: fall headache COMPARISON: CT head dated 05/12/2015 TECHNIQUE: Axial computed tomography images were obtained through the head/brain without intravenous contrast. Radiation dose: Total exam DLP = 1952 mGy-cm. This CT exam was performed using one or more of the following dose reduction techniques: Automated exposure control, adjustment of the mA and/or kV according to patient size, and/or use of iterative reconstruction technique. FINDINGS: HEMORRHAGE: No intracranial hemorrhage. BRAIN: Mild to moderate brain volume loss. Scattered focal lucencies in the subcortical and periventricular white matter suggestive for chronic microvascular ischemic change. VENTRICLES: Unremarkable. No hydrocephalus. CALVARIUM: Unremarkable. PARANASAL SINUSES: Unremarkable as visualized. No significant inflammatory changes. MASTOID AIR CELLS: Unremarkable as visualized. No inflammatory changes. OTHER FINDINGS: Evaluation moderately limited by patient motion. Calcific atherosclerosis of the bilateral carotid siphon. IMPRESSION: Evaluation moderately limited by patient motion. Chronic microvascular ischemic change. If focal neurologic deficit persists, consider MRI. These findings were preliminarily reported at 9:48 p.[address]. on 11/09/[address] Freddy Saeed from [facility].
== END 2016-11-09 23:40 | disposition home or self-care (01) ==
LOC: C.ER 19:51
DX: S00.03XA Contusion of scalp, initial encounter (principal); S70.02XA Contusion of left hip, initial encounter; S80.02XA Contusion of left knee, initial encounter; W01.0XXA Fall on same level from slipping, tripping and stumbling without subsequent striking against object, initial encounter; Y92.009 Unspecified place in unspecified non-institutional (private) residence as the place of occurrence of the external cause
CPT/HCPCS: 70450; 73502; 73562; 96372; 99284; J1885